=== PATIENT | female | born 1975 | race Caucasian/White ===

== ENCOUNTER 2019-04-04 16:03 | Emergency (ER) | payer MEDICAID, OTHER ==
--- NOTE | 2019-04-04 16:42 | ERPHSYRPT ---
- History of Present Illness Patient Subjective Stated Complaint: Pt states "I have this boil in a very sensitive area. It is on the inside of my upper left butt cheek." Triage Nursing Assessment: Pt presented through the front and placed in room 9. Pt alert and oriented X 3, skin pwd Pt ambulates with a wide gait. Pt in no apparent respiratory distress. Allergies/Adverse Reactions: No Known Drug Allergies Allergy (Unverified 04/04/19 16:17) Home Medications: Insulin Glargine,Hum.rec.anlog [Lantus] 5 units IM HS 04/04/19 [History] Hx Tetanus, Diphtheria Vaccination/Date Given: No Hx Influenza Vaccination/Date Given: No Hx Pneumococcal Vaccination/Date Given: No Immunizations Up to Date: Yes - Past Medical History Pertinent Past Medical History: Yes Neurological History: Peripheral Neuropathy ENT History: No Pertinent History Cardiac History: No Pertinent History Respiratory History: No Pertinent History Endocrine Medical History: Diabetes Type II Musculoskeletal History: Arthritis GI Medical History: No Pertinent History History: No Pertinent History Psycho-Social History: No Pertinent History Female Reproductive Disorders: No Pertinent History - Past Surgical History Past Surgical History: Yes Other Surgical History: appi. left great toe amputated - Social History Smoking Status: Current every day smoker How long have you smoked: 24 years Exposure to second hand smoke: Yes Drug Use: none Patient Lives Alone: No - Female History Hx Now: No - Nursing Vital Signs Nursing Vital Signs: Initial Vital Signs Temperature 98.8 F 04/04/19 16:10 Pulse Rate 104 H 04/04/19 16:10 Respiratory Rate 20 04/04/19 16:10 Blood Pressure 173/89 04/04/19 16:10 O2 Sat by Pulse Oximetry 97 04/04/19 16:10 Pain Scale Pain Intensity 8 - Physical Exam SpO2: 97 - Departure Referrals: DOCTOR,NO FAMILY [Primary Care Provider] -
--- NOTE | 2019-04-04 16:43 | ERPHSYRPT ---
- History of Present Illness Time Seen by Provider: 04/04/19 16:42 Source: patient Exam Limitations: no limitations Patient Subjective Stated Complaint: Pt states "I have this boil in a very sensitive area. It is on the inside of my upper left butt cheek." Triage Nursing Assessment: Pt presented through the front and placed in room 9. Pt alert and oriented X 3, skin pwd Pt ambulates with a wide gait. Pt in no apparent respiratory distress. Timing/Duration: week(s) (one), worse Quality: burning, painful, other (just started to drain last night) Severity: moderate Location: perirectal Possible Causes: no cause identified Associated Symptoms: denies symptoms, No fever Allergies/Adverse Reactions: No Known Drug Allergies Allergy (Unverified 04/04/19 16:17) Home Medications: Insulin Glargine,Hum.rec.anlog [Lantus] 5 units IM HS 04/04/19 [History] Hx Tetanus, Diphtheria Vaccination/Date Given: No Hx Influenza Vaccination/Date Given: No Hx Pneumococcal Vaccination/Date Given: No Immunizations Up to Date: Yes - Review of Systems Constitutional: No Symptoms, No Fever, No Chills Eyes: No Symptoms Ears, Nose, & Throat: No Symptoms Respiratory: No Symptoms, No Cough, No Dyspnea Cardiac: No Symptoms, No Chest Pain, No Edema, No Syncope Abdominal/Gastrointestinal: No Symptoms, No Abdominal Pain, No Nausea, No Vomiting, No Diarrhea Genitourinary Symptoms: No Symptoms, No Dysuria Musculoskeletal: No Symptoms, No Back Pain, No Neck Pain Skin: Other (abscess), No Rash Neurological: No Dizziness, No Focal Weakness, No Sensory Changes Psychological: No Symptoms Endocrine: No Symptoms Hematologic/Lymphatic: No Symptoms Immunological/Allergic: No Symptoms All Other Systems: Reviewed and Negative - Past Medical History Pertinent Past Medical History: Yes Neurological History: Peripheral Neuropathy ENT History: No Pertinent History Cardiac History: No Pertinent History Respiratory History: No Pertinent History Endocrine Medical History: Diabetes Type II Musculoskeletal History: Arthritis GI Medical History: No Pertinent History History: No Pertinent History Psycho-Social History: No Pertinent History Female Reproductive Disorders: No Pertinent History - Past Surgical History Past Surgical History: Yes Other Surgical History: appi. left great toe amputated - Social History Smoking Status: Current every day smoker How long have you smoked: 24 years Exposure to second hand smoke: Yes Drug Use: none Patient Lives Alone: No - Female History Hx Now: No - Nursing Vital Signs Nursing Vital Signs: Initial Vital Signs Temperature 98.8 F 04/04/19 16:10 Pulse Rate 104 H 04/04/19 16:10 Respiratory Rate 20 04/04/19 16:10 Blood Pressure 173/89 04/04/19 16:10 O2 Sat by Pulse Oximetry 97 04/04/19 16:10 Pain Scale Pain Intensity 8 - Physical Exam General Appearance: mild distress Eye Exam: PERRL/EOMI Ears, Nose, Throat Exam: normal ENT inspection Neck Exam: normal inspection Respiratory Exam: normal breath sounds Cardiovascular Exam: regular rate/rhythm, normal heart sounds Gastrointestinal/Abdomen Exam: soft, normal bowel sounds Pelvic Exam: not done Rectal Exam: not done Back Exam: normal inspection Extremity Exam: normal inspection Neurologic Exam: alert, oriented x 3, cooperative Skin Exam: other (6-8 cm draining abscess left perineum area between vulva and rectum. There is an open area in the center of the abscess that has opened and has some early possibly necrotic areas. Culture obtained. ) SpO2 Interpretation: normal SpO2: 97 O2 Delivery: Room Air - Course Nursing assessment & vital signs reviewed: Yes - Progress Progress: unchanged Progress Note: 04/04/19 17:16 She needs admitted for this to receive IV abx and get a surgery consult. She refused to be admitted, refuses labs or IM abx. Stressed the need for a recheck on this area soon. No signs of systemic infection. Rx bactrim, keflex, norco (pain is quite intense). Counseled pt/family regarding: diagnosis, need for follow-up (Important to have a recheck 1-2 days. ) - Departure Departure Disposition: Home Clinical Impression: Abscess Condition: Stable Critical Care Time: No Referrals: DOCTOR,NO FAMILY [Primary Care Provider] - Instructions: Wound Infection Additional Instructions: Bandage area of infection, apply warm compresses, contact your PCP tomorrow because the infection needs rechecked within the next few days. Or, you could see a general surgeon for an evaluation. Prescriptions: Hydrocodone/APAP 10/325 mg [[place] 10/325 MG Tablet] 1 tab PO Q6H PRN PRN # 10 tablet MDD 4 PRN Reason: Pain Cephalexin Mh 500 mg [Keflex 500 mg] 500 mg PO TID #30 capsule Smz/Tmp Ds Tablet [Bactrim Ds Tablet] 1 tab PO Q12H #20 tablet
[2019-04-04 17:11] VITALS: BP 147/94; PULSE 90; O2SAT 97
== END 2019-04-04 17:22 | disposition home or self-care (01) ==
LOC: ED 16:03
DX: L02.31 Cutaneous abscess of buttock (principal)
CPT/HCPCS: 87070; 87077; 87186; 99283

== ENCOUNTER 2021-04-05 16:28 | Observation (INO) | payer OTHER ==
[2021-04-05] MEDS ORDERED: NORCO 5/325 MG PO PRN (17:11)
[2021-04-05] MEDS ORDERED: DAPTOMYCIN IV SCH (18:00)
[2021-04-05] MEDS ORDERED: SODIUM CHLORIDE 0.9% IV SCH (18:00)
[2021-04-05 18:06] VITALS: BP 141/81; PULSE 78; O2SAT 97
[2021-04-05] MEDS ORDERED: Zosyn 3.375 GM Vial 3.375 GM in Sodium Chloride 100ML MINI-BAG PLUS 100 ML IV SCH (22:00)
== END 2021-04-05 17:38 | disposition left against medical advice (07) ==
LOC: UNDOADMOB 16:28 → INTOOBSV 16:28 → ICU 16:28 → UNDODISOB 17:38
PROVIDERS: ADMIT Family Medicine; ATTEND Family Medicine
DX: Z53.21 Procedure and treatment not carried out due to patient leaving prior to being seen by health care provider (principal); M86.171 Other acute osteomyelitis, right ankle and foot

== ENCOUNTER 2021-11-23 07:37 | Day surgery (SDC) | payer OTHER ==
[2021-11-23] MEDS ORDERED: CEFAZOLIN 2 GM-D5W BAG** 2 GM/50 ML ML IV SCH (08:00)
[2021-11-23] MEDS ORDERED: Lactated Ringers 1,000 ML IV SCH (08:00)
[2021-11-23 08:48] LABS: ANION GAP 13.4 MEQ/L (5-15); BLOOD UREA NITROGEN 27 mg/dL (7-17); CHLORIDE 101 mmol/L (98-107); Calcium 9.2 mg/dL (8.4-10.2); Carbon Dioxide 24 mmol/L (22-30); Creatinine 1 0.65 mg/dL (0.52-1.04); EST GLOMERULAR FILTRATION RATE > 60.0 ML/MIN; Glucose 335 mg/dL (74-106); Potassium 4.3 mmol/L (3.5-5.1); SODIUM 134 mmol/L (137-145)
[2021-11-23] MEDS ORDERED: SUBLIMAZE 100 MCG/2 ML ONE (10:47)
[2021-11-23] MEDS ORDERED: DIPRIVAN 200 MG/20 ML IV ONE (10:47)
[2021-11-23] MEDS ORDERED: Zemuron 100 MG/10 ML ONE (10:47)
[2021-11-23] MEDS ORDERED: Versed 2 MG/2 ML Injection ONE (10:48)
[2021-11-23] MEDS ORDERED: Sodium Chloride 0.9% 1000 ML 1,000 ML ONE (11:00)
[2021-11-23] MEDS ORDERED: PHENYLEPHRINE HCL ONE (11:34)
[2021-11-23] MEDS ORDERED: EPINEPHRINE 1MG/ML AMP ONE (11:36)
[2021-11-23] MEDS ORDERED: Naropin 0.5% 30 ML VIAL ONE (12:26)
[2021-11-23] MEDS ORDERED: BRIDION 200MG/2ML IV ONE (12:37)
[2021-11-23] MEDS ORDERED: Zofran 4 MG/2 ML VIAL ONE (12:38)
--- NOTE | 2021-11-23 13:12 | XRAY ---
Indication: Right foot tendon repair. Intraoperative fluoroscopy provided for 1 minute 17 seconds. 7 digital spot images submitted for interpretation ultimately demonstrates orthopedic button overlying the cuboid. Correlate with intraoperative findings/report.
[2021-11-23 14:25] VITALS: O2SAT 98
[2021-11-23 14:56] VITALS: BP 154/84; PULSE 86
--- NOTE | 2021-11-23 16:02 | OP ---
SURGERY DATE: 11/23/2021 SURGERY TIME: 1050 PREOPERATIVE DIAGNOSIS: 1. RIGID CAVOVARUS RIGHT FOOT AND ANKLE. 2. DIABETES MELLITUS. 3. PERIPHERAL NEUROPATHY. 4. GASTROC-SOLEUS EQUINUS. POSTOPERATIVE DIAGNOSIS: 1. RIGID CAVOVARUS RIGHT FOOT AND ANKLE. 2. DIABETES MELLITUS. 3. PERIPHERAL NEUROPATHY. 4. GASTROC-SOLEUS EQUINUS. PROCEDURE: 1. Tendo-Achilles lengthening. 2. Split tibialis anterior tendon transfer. SURGEON: Bob Andrea D.P.M. GAS CUTTING MACHINE OPERATOR: None. ANESTHESIA: General plus a postoperative regional popliteal block with saphenous. HEMOSTASIS: A thigh tourniquet set to 350 mm Hg for 58 total tourniquet time. ESTIMATED BLOOD LOSS: Less than 5 cc. MATERIALS: A Biomet 2.9 toggle lock with broadband for whipstitch, 4-0 Monocryl, and 3-0 Nylon. INJECTABLES: See anesthesia report for details. INDICATIONS FOR PROCEDURE: Luanne is a very pleasant 45 y/o female who presented to my office initially for an ulceration to the plantar lateral aspect of her right forefoot. The patient indicated at that time she was fearful of amputation. Then, after months of wound care, we have gotten very close to healing the wound. 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 The patient has done multiple course of physical therapy and has failed bracing and at this time, would like to proceed with surgical intervention understanding that the goal is to get a plantigrade foot. The patient is in the understanding that at the end of the procedure, the goal will be to get her heel to touch the ground and to have level loading of the forefoot. It is with that we decided to proceed. The patient understands all risks, complications, and benefits of the procedure and plenty of time was allowed for the patient to ask questions which were answered to the patient's apparent satisfaction. No guarantees were provided as to the outcome. It is with that we decided to proceed. DESCRIPTION OF PROCEDURE: The patient was brought in to the OR and placed on the OR table in the supine position. At this time, adequate general anesthesia was administered. A well-padded thigh tourniquet was applied to the patient's right lower extremity. At this time, the tourniquet was set to 350 mm Hg and the right lower extremity was prepped and draped in the typical sterile fashion. At this time, an 11 blade was utilized to make linear incisions at the posterior aspect of the Achilles tendon at the central aspect rotating in a distal to proximal fashion from medial to lateral to medial at 2, 5, and 8 cm until the equinus contracture released. This was checked with the knee extended and the knee flexed and deemed to be in an adequate position. At this time, attention was directed to the dorsal aspect of the medial foot where the tibialis anterior tendon course was appreciated. At this time, a small 2 cm incision was made over the aspect of this tendon, carried down to the tendon sheath which was incised and retracted out of the way. At this time, an additional incision further up proximally on the tibialis anterior tendon was made identifying the tendon proximally. This was performed utilizing a tonsil retractor. At this time, the introduction of a 15 blade was utilized into the medial 1/3 of the tendon and an umbilical tape was introduced in this incision site. The umbilical tape was routed underneath the tendon sheath and used to divide the tendon under tension. At this time, the end of the tendon was cut and a broadband whipstitch was introduced into the resected end of the tendon and routed through the proximal aspect of the incision. At this time, a new incision was made over the dorsal aspect of the cuboid. At this time, fluoroscopy was utilized to deem the adequate position for the anchoring of the tendon. At this time, the tendon was then routed over the extensor retinaculum and over the extensor tendons to the dorsal aspect of the cuboid where a Biomet 2.9 toggle lock was locked into the tendon end and driven through the cuboid locking it within the bone and securing it with the button. At this time, final fluoroscopic images were utilized to assess quality of position. At this time, copious amounts of sterile saline were utilized to flush the surgical sites. The surgical sites were coapted in a subcutaneous fashion with 4-0 Monocryl for the subcutaneous tissue and then coapted utilizing 3-0 Nylon in a horizontal mattress type fashion. The posterior stab incisions were coapted utilizing simple interrupted incisions. At this time, all incisions were cleansed and dried and a dressing consisting of betadine, Adaptic, 4 X 4, and Kerlix was applied to the right lower extremity. The foot was then held in an orthotimal position relative to the longitudinal access of the leg and a well-padded posterior splint was applied to the patient's right lower extremity. The patient was then provided a posterior popliteal and saphenous block. Following this, the patient was returned to the PACU with vital signs stable and vascular status intact. The patient handled the anesthesia as well as the procedure without complication. Postoperative orders as indicated in the patient's discharge chart.
--- NOTE | 2021-11-24 07:20 | XRAY ---
1 minute and 17 seconds fluoroscopy time in surgery for tendon repair of the right foot.
== END 2021-11-23 14:50 | disposition home or self-care (01) ==
LOC: SDC 07:37
PROVIDERS: ATTEND Podiatrist Foot & Ankle Surgery
DX: Q66.11 Congenital talipes calcaneovarus, right foot (principal); E11.42 Type 2 diabetes mellitus with diabetic polyneuropathy; M24.571 Contracture, right ankle
CPT/HCPCS: 27606; 27691; 36415; 73620; 76000; 76937; 80048; 82947; 93005; C1713; 64447; 64450; 76942; J0171; J0690; J2250; J2370; J2405; J2704; J2795; J3010

== ENCOUNTER 2023-06-23 11:38 | Observation (INO) | payer OTHER ==
[2023-06-23] MEDS ORDERED: SUBLIMAZE 100 MCG/2 ML IV ONE ×2 (11:55→13:33)
[2023-06-23] MEDS ORDERED: Zofran 4 MG/2 ML VIAL IV ONE (11:55)
[2023-06-23] MEDS ORDERED: Sodium Chloride 0.9% 1000 ML 1,000 ML IV STA ×2 (11:55→13:17)
--- NOTE | 2023-06-23 12:01 | ERPHSYRPT ---
- History of Present Illness Time Seen by Provider: 06/23/23 11:59 Historian: patient Exam Limitations: no limitations Physician History: Patient is a 47-year-old white female who presents with left flank pain. She has had this pain for 7 or 8 days. She says she has had some fever but no chills or sweats she has had nausea and vomiting but no diarrhea her only previ ous abdominal surgery would be an appendectomy. She has no history of renal stones. Patient is an insulin-dependent diabetic who has been off of medicines for several months she says she occasionally checks her blood sugar and they run higher in the 160 range. She says she stopped taking her insulin and using her insulin because her PCP would no longer see her. Blood sugar was 371 on arrival in the ER. Allergies/Adverse Reactions: No Known Drug Allergies Allergy (Verified 06/23/23 12:03) Home Medications: Gabapentin [Neurontin ] 100 mg PO BID 11/21/21 [History] Rivaroxaban 10 mg Tablet [Xarelto 10 mg Tablet] 10 mg PO DAILY 11/21/21 [History] Cholecalciferol (Vitamin D3) [Vitamin D3] 500 mcg PO DAILY 11/23/21 [History] Cyanocobalamin (Vitamin B-12) [Vitamin B-12] 1,000 mcg PO DAILY 11/23/21 [History] Mv,Calcium,Min/Iron/Folic/Vitk [Multi For Her Tablet] 1 tab PO DAILY 11/23/21 [History] Hx Tetanus, Diphtheria Vaccination/Date Given: No Hx Influenza Vaccination/Date Given: No Hx Pneumococcal Vaccination/Date Given: No - Review of Systems Constitutional: Fever, No Chills Eyes: No Symptoms Ears, Nose, & Throat: No Symptoms Respiratory: No Cough, No Dyspnea Cardiac: No Chest Pain, No Edema, No Syncope Abdominal/Gastrointestinal: Abdominal Pain, Nausea, Vomiting, No Diarrhea Genitourinary Symptoms: No Dysuria Musculoskeletal: No Back Pain, No Neck Pain Skin: No Rash Neurological: No Dizziness, No Focal Weakness, No Sensory Changes Psychological: No Symptoms Endocrine: No Symptoms All Other Systems: Reviewed and Negative - Past Medical History Pertinent Past Medical History: Yes Neurological History: Peripheral Neuropathy, Stroke ENT History: No Pertinent History Cardiac History: No Pertinent History Respiratory History: No Pertinent History Endocrine Medical History: Diabetes Type II Musculoskeletal History: No Pertinent History GI Medical History: No Pertinent History History: No Pertinent History Psycho-Social History: No Pertinent History Female Reproductive Disorders: No Pertinent History Other Medical History: 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 - Past Surgical History Past Surgical History: Yes Neuro Surgical History: No Pertinent History Cardiac: No Pertinent History Respiratory: No Pertinent History Gastrointestinal: Appendectomy Genitourinary: No Pertinent History Musculoskeletal: Amputation Female Surgical History: No Pertinent History Other Surgical History: left great toe amputated - Social History Smoking Status: Former smoker How long have you smoked: 24 years Exposure to second hand smoke: No Drug Use: none Patient Lives Alone: No - Nursing Vital Signs Nursing Vital Signs: Initial Vital Signs Temperature 97.3 F 06/23/23 11:46 Pulse Rate 117 H 06/23/23 11:46 Blood Pressure 136/109 06/23/23 11:46 O2 Sat by Pulse Oximetry 99 06/23/23 11:46 Pain Scale Pain Intensity 7 - Physical Exam General Appearance: mild distress, alert Eye Exam: PERRL/EOMI, eyes nml inspection Ears, Nose, Throat Exam: normal ENT inspection, pharynx normal, moist mucous membranes Neck Exam: normal inspection, non-tender, supple, full range of motion Respiratory Exam: normal breath sounds, lungs clear, No respiratory distress Cardiovascular Exam: regular rate/rhythm, normal heart sounds Gastrointestinal/Abdomen Exam: soft, No tenderness, No mass Back Exam: normal inspection, normal range of motion, CVA tenderness (Left CVA tenderness), No vertebral tenderness Extremity Exam: normal inspection, normal range of motion, pelvis stable Neurologic Exam: alert, oriented x 3, cooperative, normal mood/affect, nml cerebellar function, sensation nml, No motor deficits Skin Exam: normal color, warm, dry - Course Nursing assessment & vital signs reviewed: Yes EKG Interpreted by Me: RATE ([id number]), Sinus Rhythm, NORMAL AXIS, NORMAL INTERVALS, Non-specific ST Changes - CT Exams Abdomen/Pelvis CT Interpretation: Other (Findings were reviewed by me) Ordered Tests: Active Orders 24 hr Category Date Time Status EKG-ER Only STAT Care 06/23/23 11:55 Active IV Insertion STAT Care 06/23/23 11:55 Active POCT Glucose Check STAT Care 06/23/23 12:03 Active ABDOMEN AND PELVIS W/0 CONTRAS [CT] Stat Exams 06/23/23 11:56 Completed ABG [ARTERIAL BLOOD GASES] Stat Lab 06/23/23 13:04 Completed CBC W DIFF Stat Lab 06/23/23 12:00 Completed CMP Stat Lab 06/23/23 12:00 Completed CULTURE,URINE Stat Lab 06/23/23 12:03 Received LIPASE Stat Lab 06/23/23 12:00 Completed Lactic Acid Stat Lab 06/23/23 12:00 Completed POCT GLUCOSE Stat Lab 06/23/23 12:00 Completed PROTIME WITH INR Stat Lab 06/23/23 12:00 Completed TROPONIN Q4H Lab 06/23/23 12:00 Completed TROPONIN Q4H Lab 06/23/23 16:00 Ordered TROPONIN Q4H Lab 06/23/23 20:00 Ordered UA W/RFX UR CULTURE Stat Lab 06/23/23 12:03 Completed Urine Triage Profile Stat Lab 06/23/23 12:03 Completed Medication Summary Generic Name Dose Route Start Last Admin Trade Name Freq PRN Reason Stop Dose Admin Fentanyl Citrate 75 mcg 06/23/23 13:33 Fentanyl Citrate 100 Mcg/2 Ml* Vial IV 06/23/23 13:34 STAT ONE Sodium Chloride 1,000 mls @ 999 mls/hr 06/23/23 13:17 06/23/23 13:24 Sodium Chloride 0.9% 1000 Ml IV 06/23/23 14:17 999 mls/hr .Q1H1M STA Administration Ceftriaxone Sodium/Dextrose 1 g in 50 mls @ 100 mls/hr 06/23/23 13:31 Rocephin 1 Gm-D5w 50 Ml Bag IV 06/23/23 14:00 STAT STA Discontinued Medications Generic Name Dose Route Start Last Admin Trade Name Freq PRN Reason Stop Dose Admin Fentanyl Citrate 50 mcg 06/23/23 11:55 06/23/23 12:08 Fentanyl Citrate 100 Mcg/2 Ml* Vial IV 06/23/23 11:56 50 mcg STAT ONE Administration Fentanyl Citrate Confirm 06/23/23 12:05 Fentanyl Citrate 100 Mcg/2 Ml* Vial Administered 06/23/23 12:06 Dose 100 mcg .ROUTE .STK-MED ONE Sodium Chloride 1,000 mls @ 999 mls/hr 06/23/23 11:55 06/23/23 13:10 Sodium Chloride 0.9% 1000 Ml IV 06/23/23 12:55 Infused .Q1H1M STA Infusion Sodium Chloride Confirm 06/23/23 12:05 Sodium Chloride 0.9% 1000 Ml Administered 06/23/23 12:06 Dose 1,000 mls @ ud .ROUTE .STK-MED ONE Sodium Chloride Confirm 06/23/23 13:20 Sodium Chloride 0.9% 1000 Ml Administered 06/23/23 13:21 Dose 1,000 mls @ ud .ROUTE .STK-MED ONE Insulin Human Regular 10 unit 06/23/23 13:05 06/23/23 13:23 Insulin Regular, Human 1 Unit IV 06/23/23 13:06 10 unit STAT ONE Administration Insulin Human Regular Confirm 06/23/23 13:20 Insulin Regular, Human 1 Unit Administered 06/23/23 13:21 Dose 10 unit .ROUTE .STK-MED ONE Ondansetron HCl 4 mg 06/23/23 11:55 06/23/23 12:08 Ondansetron Hcl 4 Mg/2 Ml Vial IV 06/23/23 11:56 4 mg STAT ONE Administration Ondansetron HCl Confirm 06/23/23 12:04 Ondansetron Hcl 4 Mg/2 Ml Vial Administered 06/23/23 12:05 Dose 4 mg .ROUTE .STK-MED ONE Lab/Rad Data: Laboratory Result Diagrams 06/23/23 12:00 06/23/23 12:00 Laboratory Results 06/23/23 06/23/23 06/23/23 Range/Units 13:04 12:03 12:03 WBC (4.0-10.5) x10^3/uL RBC (4.1-5.4) x10^6/uL Hgb (12.0-16.0) g/dL Hct (35-47) % MCV (78-100) fL MCH (26-32) pg MCHC (32-36) g/dL RDW (11.5-14.0) % Plt Count (150-450) x10^3/uL MPV (7.5-11.0) fL Gran % (36.0-66.0) % Immature Gran % (Auto) (0.00-0.4) % Nucleat RBC Rel Count (0.00-0.1) % Eos # (Auto) (0-0.5) x10^3/uL Immature Gran # (Auto) (0.00-0.03) x10^3u/L Absolute Lymphs (auto) (1.0-4.6) x10^3/uL Absolute Monos (auto) (0.0-1.3) x10^3/uL Absolute Nucleated RBC (0.00-0.01) x10^3u/L Lymphocytes % (24.0-44.0) % Monocytes % (0.0-12.0) % Eosinophils % (0.00-5.0) % Basophils % (0.0-0.4) % Absolute Granulocytes (1.4-6.9) x10^3/uL Basophils # (0-0.4) x10^3/uL PT (9.4-12.5) SECONDS INR (0.8-3.0) Puncture Site LEFT RADIAL pCO2 17 L* (35-45) mmHg pO2 135 H* (75-100) mmHg Base Excess -5.6 L (-2.0-2.0) O2 Saturation 96.7 (94-100) g/dF ABG pH 7.53 H (7.35-7.45) ABG HCO3 14.2 L* (22-28) ABG O2 Sat (Measured) 99.0 (95-100) % Jefferson Test YES A-a Gradient -7 a/A Ratio 1.05 Hemoglobin 14.2 Carboxyhemoglobin 1.3 (0.0-6.9) % THgb Methemoglobin 1.1 L (1.4-1.5) % Temperature 37.0 C POC O2 Flow Rate 21 % Sodium (137-145) mmol/L Potassium 4.7 (3.5-5.1) mmol/L Chloride (98-107) mmol/L Carbon Dioxide (22-30) mmol/L Anion Gap (5-15) MEQ/L BUN (7-17) mg/dL Creatinine (0.52-1.04) mg/dL Estimated GFR ML/MIN Glucose (74-106) mg/dL POC Glucometer (74 to 106) mg/dL Lactic Acid (0.4-2.0) Calcium (8.4-10.2) mg/dL Total Bilirubin (0.2-1.3) mg/dL AST (14-36) U/L ALT (0-35) U/L Alkaline Phosphatase (38-126) U/L Troponin I (0.000-0.034) ng/mL Serum Total Protein (6.3-8.2) g/dL Albumin (3.5-5.0) g/dL Lipase (23-300) U/L Urine Color Yellow (Yellow) Urine Appearance Turbid A (Clear) Urine pH 5.5 (4.6-8.0) Ur Specific [place] >=1.030 A (1.005-1.030) Urine Protein 300 A (Negative) Urine Glucose (UA) >=1000 A (Negative) mg/dL Urine Ketones >=160 A (Negative) Urine Blood Moderate A (Negative) Urine Nitrite Negative (Negative) Urine Bilirubin Negative (Negative) Urine Urobilinogen 0.2 (0.2) mg/dL Ur Leukocyte Esterase Small A (Negative) U Hyaline Cast (Auto) None Seen (0-2) /LPF Urine Microscopic RBC 6-10 A (0-5) /HPF Urine Microscopic WBC 21-50 A (0-5) /HPF Ur Epithelial Cells Rare (None Seen) /HPF Urine Bacteria Moderate A (None Seen) /HPF Urine Culture Reflexed YES (NO) Urine Opiates Level POSITIVE A (NEGATIVE) Ur Methadone NEGATIVE (NEGATIVE) Urine Barbiturates NEGATIVE (NEGATIVE) Ur Phencyclidine (PCP) NEGATIVE (NEGATIVE) Urine Amphetamine NEGATIVE (NEGATIVE) U Benzodiazepine Level NEGATIVE (NEGATIVE) Urine Cocaine NEGATIVE (NEGATIVE) Urine Marijuana (THC) NEGATIVE (NEGATIVE) 06/23/23 06/23/23 06/23/23 Range/Units 12:00 12:00 12:00 WBC (4.0-10.5) x10^3/uL RBC (4.1-5.4) x10^6/uL Hgb (12.0-16.0) g/dL Hct (35-47) % MCV (78-100) fL MCH (26-32) pg MCHC (32-36) g/dL RDW (11.5-14.0) % Plt Count (150-450) x10^3/uL MPV (7.5-11.0) fL Gran % (36.0-66.0) % Immature Gran % (Auto) (0.00-0.4) % Nucleat RBC Rel Count (0.00-0.1) % Eos # (Auto) (0-0.5) x10^3/uL Immature Gran # (Auto) (0.00-0.03) x10^3u/L Absolute Lymphs (auto) (1.0-4.6) x10^3/uL Absolute Monos (auto) (0.0-1.3) x10^3/uL Absolute Nucleated RBC (0.00-0.01) x10^3u/L Lymphocytes % (24.0-44.0) % Monocytes % (0.0-12.0) % Eosinophils % (0.00-5.0) % Basophils % (0.0-0.4) % Absolute Granulocytes (1.4-6.9) x10^3/uL Basophils # (0-0.4) x10^3/uL PT 10.8 (9.4-12.5) SECONDS INR 0.99 (0.8-3.0) Puncture Site pCO2 (35-45) mmHg pO2 (75-100) mmHg Base Excess (-2.0-2.0) O2 Saturation (94-100) g/dF ABG pH (7.35-7.45) ABG HCO3 (22-28) ABG O2 Sat (Measured) (95-100) % Jefferson Test A-a Gradient a/A Ratio Hemoglobin Carboxyhemoglobin (0.0-6.9) % THgb Methemoglobin (1.4-1.5) % Temperature C POC O2 Flow Rate % Sodium (137-145) mmol/L Potassium (3.5-5.1) mmol/L Chloride (98-107) mmol/L Carbon Dioxide (22-30) mmol/L Anion Gap (5-15) MEQ/L BUN (7-17) mg/dL Creatinine (0.52-1.04) mg/dL Estimated GFR ML/MIN Glucose (74-106) mg/dL POC Glucometer 371 H (74 to 106) mg/dL Lactic Acid (0.4-2.0) Calcium (8.4-10.2) mg/dL Total Bilirubin (0.2-1.3) mg/dL AST (14-36) U/L ALT (0-35) U/L Alkaline Phosphatase (38-126) U/L Troponin I < 0.012 (0.000-0.034) ng/mL Serum Total Protein (6.3-8.2) g/dL Albumin (3.5-5.0) g/dL Lipase (23-300) U/L Urine Color (Yellow) Urine Appearance (Clear) Urine pH (4.6-8.0) Ur Specific [place] (1.005-1.030) Urine Protein (Negative) Urine Glucose (UA) (Negative) mg/dL Urine Ketones (Negative) Urine Blood (Negative) Urine Nitrite (Negative) Urine Bilirubin (Negative) Urine Urobilinogen (0.2) mg/dL Ur Leukocyte Esterase (Negative) U Hyaline Cast (Auto) (0-2) /LPF Urine Microscopic RBC (0-5) /HPF Urine Microscopic WBC (0-5) /HPF Ur Epithelial Cells (None Seen) /HPF Urine Bacteria (None Seen) /HPF Urine Culture Reflexed (NO) Urine Opiates Level (NEGATIVE) Ur Methadone (NEGATIVE) Urine Barbiturates (NEGATIVE) Ur Phencyclidine (PCP) (NEGATIVE) Urine Amphetamine (NEGATIVE) U Benzodiazepine Level (NEGATIVE) Urine Cocaine (NEGATIVE) Urine Marijuana (THC) (NEGATIVE) 06/23/23 06/23/23 06/23/23 Range/Units 12:00 12:00 12:00 WBC 12.8 H (4.0-10.5) x10^3/uL RBC 5.22 (4.1-5.4) x10^6/uL Hgb 15.6 (12.0-16.0) g/dL Hct 45.8 (35-47) % MCV 87.7 (78-100) fL MCH 29.9 (26-32) pg MCHC 34.1 (32-36) g/dL RDW 13.7 (11.5-14.0) % Plt Count 286 (150-450) x10^3/uL MPV 10.4 (7.5-11.0) fL Gran % 68.9 H (36.0-66.0) % Immature Gran % (Auto) 0.3 (0.00-0.4) % Nucleat RBC Rel Count 0.0 (0.00-0.1) % Eos # (Auto) 0.08 (0-0.5) x10^3/uL Immature Gran # (Auto) 0.04 H (0.00-0.03) x10^3u/L Absolute Lymphs (auto) 2.95 (1.0-4.6) x10^3/uL Absolute Monos (auto) 0.82 (0.0-1.3) x10^3/uL Absolute Nucleated RBC 0.00 (0.00-0.01) x10^3u/L Lymphocytes % 23.1 L (24.0-44.0) % Monocytes % 6.4 (0.0-12.0) % Eosinophils % 0.6 (0.00-5.0) % Basophils % 0.7 (0.0-0.4) % Absolute Granulocytes 8.79 H (1.4-6.9) x10^3/uL Basophils # 0.09 (0-0.4) x10^3/uL PT (9.4-12.5) SECONDS INR (0.8-3.0) Puncture Site pCO2 (35-45) mmHg pO2 (75-100) mmHg Base Excess (-2.0-2.0) O2 Saturation (94-100) g/dF ABG pH (7.35-7.45) ABG HCO3 (22-28) ABG O2 Sat (Measured) (95-100) % Jefferson Test A-a Gradient a/A Ratio Hemoglobin Carboxyhemoglobin (0.0-6.9) % THgb Methemoglobin (1.4-1.5) % Temperature C POC O2 Flow Rate % Sodium 131 L (137-145) mmol/L Potassium 4.3 (3.5-5.1) mmol/L Chloride 95 L (98-107) mmol/L Carbon Dioxide 19 L (22-30) mmol/L Anion Gap 21.4 H (5-15) MEQ/L BUN 21 H (7-17) mg/dL Creatinine 0.68 (0.52-1.04) mg/dL Estimated GFR 106.7 ML/MIN Glucose 380 H (74-106) mg/dL POC Glucometer (74 to 106) mg/dL Lactic Acid 2.5 H (0.4-2.0) Calcium 9.3 (8.4-10.2) mg/dL Total Bilirubin 1.00 (0.2-1.3) mg/dL AST 39 H (14-36) U/L ALT 40 H (0-35) U/L Alkaline Phosphatase 144 H (38-126) U/L Troponin I (0.000-0.034) ng/mL Serum Total Protein 8.8 H (6.3-8.2) g/dL Albumin 4.6 (3.5-5.0) g/dL Lipase 620 H (23-300) U/L Urine Color (Yellow) Urine Appearance (Clear) Urine pH (4.6-8.0) Ur Specific [place] (1.005-1.030) Urine Protein (Negative) Urine Glucose (UA) (Negative) mg/dL Urine Ketones (Negative) Urine Blood (Negative) Urine Nitrite (Negative) Urine Bilirubin (Negative) Urine Urobilinogen (0.2) mg/dL Ur Leukocyte Esterase (Negative) U Hyaline Cast (Auto) (0-2) /LPF Urine Microscopic RBC (0-5) /HPF Urine Microscopic WBC (0-5) /HPF Ur Epithelial Cells (None Seen) /HPF Urine Bacteria (None Seen) /HPF Urine Culture Reflexed (NO) Urine Opiates Level (NEGATIVE) Ur Methadone (NEGATIVE) Urine Barbiturates (NEGATIVE) Ur Phencyclidine (PCP) (NEGATIVE) Urine Amphetamine (NEGATIVE) U Benzodiazepine Level (NEGATIVE) Urine Cocaine (NEGATIVE) Urine Marijuana (THC) (NEGATIVE) - Progress Progress: improved Discussed with Dr.: Other (Dr Alexander) Medical Desision Making - Independent Historian Additional History obtained from: Relative/friend - Discussion of managment Care discussed with:: hospitalist Reviewed:: Test results, Need for additional workup Agreed on:: Treatment plan, decision to admit Will see patient: in hospital - Diagnostic Testing Diagnostic test were ordered, analyzed, and reviewed by me: Yes Radiological Interpretation: Reviewed by me - Risk of complications The pt has a mod risk of morbidity or mortality based on: Need for prescription drug management - Departure Departure Disposition: Observation Clinical Impression: Hyperglycemia, Urinary tract infection, Pancreatitis, Cholelithiasis Condition: Stable Critical Care Time: No Referrals: ZIGGY RAMIREZ MD [Primary Care Provider] - Follow up/PCP as directed
[2023-06-23] MEDS ORDERED: Zofran 4 MG/2 ML VIAL ONE (12:04)
[2023-06-23] MEDS ORDERED: SUBLIMAZE 100 MCG/2 ML ONE ×2 (12:05→13:35)
[2023-06-23] MEDS ORDERED: Sodium Chloride 0.9% 1000 ML 1,000 ML ONE ×2 (12:05→13:20)
[2023-06-23 12:07] LABS: Absolute Neutrophil Ct (ANC) 8.79 x10^3/uL (1.4-6.9); BASOPHIL % 0.7 % (0.0-0.4); Basophil (Absolute #) 0.09 x10^3/uL (0-0.4); Eosinophil % 0.6 % (0.00-5.0); Eosinophil (Absolute #) 0.08 x10^3/uL (0-0.5); Hematocrit 45.8 % (35-47); Hemoglobin 15.6 g/dL (12.0-16.0); IMMATURE GRAN # 0.04 x10^3u/L (0.00-0.03); IMMATURE GRAN % 0.3 % (0.00-0.4); Lymphocyte (Absolute #) 2.95 x10^3/uL (1.0-4.6); Lymphocytes % 23.1 % (24.0-44.0); Mean Cell Volume 87.7 fL (78-100); Mean Corpuscular Hemoglobin 29.9 pg (26-32); Mean Corpuscular Hgb Concent. 34.1 g/dL (32-36); Mean Platelet Volume 10.4 fL (7.5-11.0); Monocyte (Absolute #) 0.82 x10^3/uL (0.0-1.3); Monocytes % 6.4 % (0.0-12.0); Neutrophil % 68.9 % (36.0-66.0); Platelet Count 286 x10^3/uL (150-450); Red Blood Count 5.22 x10^6/uL (4.1-5.4); Red Cell Distribution Width 13.7 % (11.5-14.0); White Blood Count 12.8 x10^3/uL (4.0-10.5)
[2023-06-23 12:20] LABS: INR 0.99 (0.8-3.0); PROTIME 10.8 SECONDS (9.4-12.5)
[2023-06-23 12:21] LABS: ALBUMIN 4.6 g/dL (3.5-5.0); ANION GAP 21.4 MEQ/L (5-15); Calcium 9.3 mg/dL (8.4-10.2); Creatinine 1 0.68 mg/dL (0.52-1.04); EST GLOMERULAR FILTRATION RATE 106.7 ML/MIN; Potassium 4.3 mmol/L (3.5-5.1); Total Protein 8.8 g/dL (6.3-8.2)
[2023-06-23 12:33] LABS: Appearance Turbid (Clear); Bilirubin Negative (Negative); Blood Moderate (Negative); Epithelial Cells Rare /HPF (None Seen); Glucose, Urine >=1000 mg/dL (Negative); Ketones >=160 (Negative); Leukocyte Esterase Small (Negative); Nitrite Negative (Negative); Ph 5.5 (4.6-8.0); Protein,Urine Dip 300 (Negative); Specific Gravity >=1.030 (1.005-1.030); Urobilinogen 0.2 mg/dL (0.2)
[2023-06-23 12:34] LABS: ADD URINE CULTURE? YES (NO); Bacteria Moderate /HPF (None Seen); Hyaline Casts None Seen /LPF (0-2); WBC 21-50 /HPF (0-5)
--- NOTE | 2023-06-23 12:42 | XRAY ---
Indication: Left flank pain 3 days. History of kidney stones. Multiple contiguous axial images obtained through abdomen and pelvis without contrast. Comparison: None Lung bases clear. Heart not enlarged. Noncontrasted stomach and bowel loops appear nonobstructed. Previous appendectomy. Moderately distended gallbladder with tiny gallstones in the dependent portion. No free fluid/air. Urinary bladder demonstrates small intraluminal air either iatrogenic from recent catheterization versus gas-forming infection. Remaining liver, pancreas, spleen, adrenal glands, kidneys, ureters, and uterus are unremarkable for noncontrast exam. Mild scattered aortoiliac calcifications without AAA. Osseous structures intact with minimal/mild degenerative changes throughout the spine and minimal levoscoliosis centered at L3. Impression: 1. Abnormally distended gallbladder with tiny gallstones. Sonogram may yield further information if clinically warranted. 2. Urinary bladder intraluminal air either iatrogenic versus gas-forming infection. 3. Chronic findings including arteriosclerotic disease and chronic bony findings.
[2023-06-23 12:51] LABS: Amphetamine,Urine NEGATIVE (NEGATIVE); Barbiturate,Urine NEGATIVE (NEGATIVE); Benzodiazepine,Urine NEGATIVE (NEGATIVE); Cocaine,Urine NEGATIVE (NEGATIVE); Methadone,Urine NEGATIVE (NEGATIVE); Opiate,Urine POSITIVE (NEGATIVE); PCP,Urine NEGATIVE (NEGATIVE); THC,Urine NEGATIVE (NEGATIVE)
[2023-06-23] MEDS ORDERED: HUMULIN R IV ONE (13:05)
[2023-06-23 13:19] LABS: A-aADO2 -7; ABG HEMOGLOBIN 14.2; ABG POTASSIUM 4.7 (3.5-5.1); ARTERIAL BLOOD GAS BASE EXCESS -5.6 (-2.0-2.0); ARTERIAL BLOOD GAS FIO2 21 %; ARTERIAL BLOOD GAS PCO2 17 mmHg (35-45); ARTERIAL BLOOD GAS PO2 135 mmHg (75-100); ARTERIAL BLOOD GAS pH 7.53 (7.35-7.45); CARBOXYHEMOGLOBIN 1.3 % THgb (0.0-6.9); HCO3- 14.2 (22-28); HGB O2 SAT 96.7 g/dF (94-100); Methhemoglobin 1.1 % (1.4-1.5); paO2 pAO1 1.05
[2023-06-23 13:20] LABS: ABG SITE LEFT RADIAL; ALLEN TEST OK? YES
[2023-06-23] MEDS ORDERED: HUMULIN R ONE (13:20)
[2023-06-23] MEDS ORDERED: ROCEPHIN 1 Gm-D5w 50 ml Bag** 1 G/50 ML IVPB IV STA (13:31)
[2023-06-23] MEDS ORDERED: ROCEPHIN 1 Gm-D5w 50 ml Bag** 1 G/50 ML IVPB IV ONE (13:32)
--- NOTE | 2023-06-23 15:28 | PCM.HP ---
History of Present Illness - Chief Complaint Chief Complaint: Hyperglycemia/UTI Date: 06/23/23 History of Present Illness: is a 47 year old female with pmhx of DM (was on insulin but has not taken it for a few years), Stroke (2021), HLD, and neuropathy presented to ED 06/23/23 with complaints of nausea (one episode of vomiting this past Friday), abdominal and left flank pain for the past week. She reports that she feels she has been febrile with chills but does not have a thermometer at home. Patient denies hematuria, dysuria, frequency, or burning. Upon presentation patient was afebrile, tachycardic and hypertensive with spo2 @ 99% on RA. CT of the abdomen/pelvis w/o contrast demonstrates an abnormally distended gallbladder with tiny gallstones and urinary bladder intraluminal air either iatrogenic versus gas-forming infection. Lab findings are remarkable for WBC at 12.8, co2 at 19, glucose at 380, AST at 39, ALT at 40, alk phos at 144, and lipase at 620. Urinalysis with ketones, glucose, and many WBC. Lactic acid WNL. Patient was given ceftriaxone, insulin, fentanyl, zofran, and IVF bolus. - Review of Systems Constitutional: Fever, Chills, Fatigue Eyes: No Symptoms Ears, Nose, & Throat: No Symptoms Respiratory: No Symptoms Cardiac: No Symptoms Abdominal/Gastrointestinal: Abdominal Pain, Nausea, Other (Left flank pain CVA tenderness) Genitourinary Symptoms: No Symptoms Musculoskeletal: No Symptoms Skin: No Symptoms Neurological: Other (N/T BLE chronic) Psychological: No Symptoms Endocrine: No Symptoms Hematologic/Lymphatic: No Symptoms Medications & Allergies Home Medications: Home Medication List Gabapentin [Neurontin ] 100 mg PO BID 11/21/21 [History Confirmed 06/23/23] Rivaroxaban 10 mg Tablet [Xarelto 10 mg Tablet] 10 mg PO DAILY 11/21/21 [History Confirmed 06/23/23] Cholecalciferol (Vitamin D3) [Vitamin D3] 500 mcg PO DAILY 11/23/21 [History Confirmed 06/23/23] Cyanocobalamin (Vitamin B-12) [Vitamin B-12] 1,000 mcg PO DAILY 11/23/21 [History Confirmed 06/23/23] Mv,Calcium,Min/Iron/Folic/Vitk [Multi For Her Tablet] 1 tab PO DAILY 11/23/21 [History Confirmed 06/23/23] Allergies/Adverse Reactions: Allergies Allergy/AdvReac Type Severity Reaction Status Date / Time No Known Drug Allergies Allergy Verified 06/23/23 12:03 - Past Medical History Past Medical History: Yes Neurological History: Peripheral Neuropathy, Stroke ENT History: No Pertinent History Cardiac History: No Pertinent History Respiratory History: No Pertinent History Endocrine Medical History: Diabetes Type II Musculoskelatal History: No Pertinent History GI Medical History: No Pertinent History History: No Pertinent History Pyscho-Social History: No Pertinent History Reproductive Disorders: No Pertinent History Comment: HX OF AMPUTATION LEFT GREAT TOE AFTER SUFFERING CRUSH INJURY AND NON- HEALING WOUND 05/2018. - Female History Are you now?: No - Past Surgical History Past Surgical History: Yes Neuro Surgical History: No Pertinent History Cardiac History: No Pertinent History Respiratory Surgery: No Pertinent History GI Surgical History: Appendectomy Genitourinary Surgical Hx: No Pertinent History Musculskeletal Surgical Hx: Amputation Female Surgical History: No Pertinent History Other Surgical History: left great toe amputated - Social History Smoking Status: Former smoker How long have you smoked: 24 years Exposure to second hand smoke: No Alcohol: None Drug Use: none - Physical Exam Vital Signs: Vital Signs - 24 hr Temp Pulse Resp BP BP Pulse Ox 06/23/23 13:30 139/90 06/23/23 13:00 92 H 16 136/87 98 06/23/23 12:30 91 H 4 L 124/82 98 06/23/23 12:29 96 H 21 97 06/23/23 12:27 98 H 13 97 06/23/23 12:00 122/90 98 06/23/23 11:46 97.3 F 117 H 136/109 99 General Appearance: no apparent distress Neurologic Exam: alert, oriented x 3, cooperative Eye Exam: PERRL/EOMI Ears, Nose, Throat Exam: normal ENT inspection Neck Exam: normal inspection Respiratory Exam: normal breath sounds, lungs clear Cardiovascular Exam: regular rate/rhythm, normal heart sounds Gastrointestinal/Abdomen Exam: soft, normal bowel sounds, tenderness (LLQ) Pelvic Exam: not done Rectal Exam: deferred Back Exam: normal inspection Results - Labs Lab/Micro Results: Lab Results-Last 24 Hours 1206/23/23 06/23/23 Range/Units 12:00 12:00 12:00 WBC 12.8 H (4.0-10.5) x10^3/uL RBC 5.22 (4.1-5.4) x10^6/uL Hgb 15.6 (12.0-16.0) g/dL Hct 45.8 (35-47) % MCV 87.7 (78-100) fL MCH 29.9 (26-32) pg MCHC 34.1 (32-36) g/dL RDW 13.7 (11.5-14.0) % Plt Count 286 (150-450) x10^3/uL MPV 10.4 (7.5-11.0) fL Gran % 68.9 H (36.0-66.0) % Immature Gran % (Auto) 0.3 (0.00-0.4) % Nucleat RBC Rel Count 0.0 (0.00-0.1) % Eos # (Auto) 0.08 (0-0.5) x10^3/uL Immature Gran # (Auto) 0.04 H (0.00-0.03) x10^3u/L Absolute Lymphs (auto) 2.95 (1.0-4.6) x10^3/uL Absolute Monos (auto) 0.82 (0.0-1.3) x10^3/uL Absolute Nucleated RBC 0.00 (0.00-0.01) x10^3u/L Lymphocytes % 23.1 L (24.0-44.0) % Monocytes % 6.4 (0.0-12.0) % Eosinophils % 0.6 (0.00-5.0) % Basophils % 0.7 (0.0-0.4) % Absolute Granulocytes 8.79 H (1.4-6.9) x10^3/uL Basophils # 0.09 (0-0.4) x10^3/uL PT (9.4-12.5) SECONDS INR (0.8-3.0) Puncture Site pCO2 (35-45) mmHg pO2 (75-100) mmHg Base Excess (-2.0-2.0) O2 Saturation (94-100) g/dF ABG pH (7.35-7.45) ABG HCO3 (22-28) ABG O2 Sat (Measured) (95-100) % Jefferson Test A-a Gradient a/A Ratio Hemoglobin Carboxyhemoglobin (0.0-6.9) % THgb Methemoglobin (1.4-1.5) % Temperature C POC O2 Flow Rate % Sodium 131 L (137-145) mmol/L Potassium 4.3 (3.5-5.1) mmol/L Chloride 95 L (98-107) mmol/L Carbon Dioxide 19 L (22-30) mmol/L Anion Gap 21.4 H (5-15) MEQ/L BUN 21 H (7-17) mg/dL Creatinine 0.68 (0.52-1.04) mg/dL Estimated GFR 106.7 ML/MIN Glucose 380 H (74-106) mg/dL POC Glucometer (74 to 106) mg/dL Lactic Acid 2.5 H (0.4-2.0) Calcium 9.3 (8.4-10.2) mg/dL Total Bilirubin 1.00 (0.2-1.3) mg/dL AST 39 H (14-36) U/L ALT 40 H (0-35) U/L Alkaline Phosphatase 144 H (38-126) U/L Troponin I (0.000-0.034) ng/mL Serum Total Protein 8.8 H (6.3-8.2) g/dL Albumin 4.6 (3.5-5.0) g/dL Lipase 620 H (23-300) U/L Urine Color (Yellow) Urine Appearance (Clear) Urine pH (4.6-8.0) Ur Specific [place] (1.005-1.030) Urine Protein (Negative) Urine Glucose (UA) (Negative) mg/dL Urine Ketones (Negative) Urine Blood (Negative) Urine Nitrite (Negative) Urine Bilirubin (Negative) Urine Urobilinogen (0.2) mg/dL Ur Leukocyte Esterase (Negative) U Hyaline Cast (Auto) (0-2) /LPF Urine Microscopic RBC (0-5) /HPF Urine Microscopic WBC (0-5) /HPF Ur Epithelial Cells (None Seen) /HPF Urine Bacteria (None Seen) /HPF Urine Culture Reflexed (NO) Urine Opiates Level (NEGATIVE) Ur Methadone (NEGATIVE) Urine Barbiturates (NEGATIVE) Ur Phencyclidine (PCP) (NEGATIVE) Urine Amphetamine (NEGATIVE) U Benzodiazepine Level (NEGATIVE) Urine Cocaine (NEGATIVE) Urine Marijuana (THC) (NEGATIVE) 06/23/23 06/23/23 06/23/23 Range/Units 12:00 12:00 12:00 WBC (4.0-10.5) x10^3/uL RBC (4.1-5.4) x10^6/uL Hgb (12.0-16.0) g/dL Hct (35-47) % MCV (78-100) fL MCH (26-32) pg MCHC (32-36) g/dL RDW (11.5-14.0) % Plt Count (150-450) x10^3/uL MPV (7.5-11.0) fL Gran % (36.0-66.0) % Immature Gran % (Auto) (0.00-0.4) % Nucleat RBC Rel Count (0.00-0.1) % Eos # (Auto) (0-0.5) x10^3/uL Immature Gran # (Auto) (0.00-0.03) x10^3u/L Absolute Lymphs (auto) (1.0-4.6) x10^3/uL Absolute Monos (auto) (0.0-1.3) x10^3/uL Absolute Nucleated RBC (0.00-0.01) x10^3u/L Lymphocytes % (24.0-44.0) % Monocytes % (0.0-12.0) % Eosinophils % (0.00-5.0) % Basophils % (0.0-0.4) % Absolute Granulocytes (1.4-6.9) x10^3/uL Basophils # (0-0.4) x10^3/uL PT 10.8 (9.4-12.5) SECONDS INR 0.99 (0.8-3.0) Puncture Site pCO2 (35-45) mmHg pO2 (75-100) mmHg Base Excess (-2.0-2.0) O2 Saturation (94-100) g/dF ABG pH (7.35-7.45) ABG HCO3 (22-28) ABG O2 Sat (Measured) (95-100) % Jefferson Test A-a Gradient a/A Ratio Hemoglobin Carboxyhemoglobin (0.0-6.9) % THgb Methemoglobin (1.4-1.5) % Temperature C POC O2 Flow Rate % Sodium (137-145) mmol/L Potassium (3.5-5.1) mmol/L Chloride (98-107) mmol/L Carbon Dioxide (22-30) mmol/L Anion Gap (5-15) MEQ/L BUN (7-17) mg/dL Creatinine (0.52-1.04) mg/dL Estimated GFR ML/MIN Glucose (74-106) mg/dL POC Glucometer 371 H (74 to 106) mg/dL Lactic Acid (0.4-2.0) Calcium (8.4-10.2) mg/dL Total Bilirubin (0.2-1.3) mg/dL AST (14-36) U/L ALT (0-35) U/L Alkaline Phosphatase (38-126) U/L Troponin I < 0.012 (0.000-0.034) ng/mL Serum Total Protein (6.3-8.2) g/dL Albumin (3.5-5.0) g/dL Lipase (23-300) U/L Urine Color (Yellow) Urine Appearance (Clear) Urine pH (4.6-8.0) Ur Specific [place] (1.005-1.030) Urine Protein (Negative) Urine Glucose (UA) (Negative) mg/dL Urine Ketones (Negative) Urine Blood (Negative) Urine Nitrite (Negative) Urine Bilirubin (Negative) Urine Urobilinogen (0.2) mg/dL Ur Leukocyte Esterase (Negative) U Hyaline Cast (Auto) (0-2) /LPF Urine Microscopic RBC (0-5) /HPF Urine Microscopic WBC (0-5) /HPF Ur Epithelial Cells (None Seen) /HPF Urine Bacteria (None Seen) /HPF Urine Culture Reflexed (NO) Urine Opiates Level (NEGATIVE) Ur Methadone (NEGATIVE) Urine Barbiturates (NEGATIVE) Ur Phencyclidine (PCP) (NEGATIVE) Urine Amphetamine (NEGATIVE) U Benzodiazepine Level (NEGATIVE) Urine Cocaine (NEGATIVE) Urine Marijuana (THC) (NEGATIVE) 06/23/23 06/23/23 06/23/23 Range/Units 12:03 12:03 13:04 WBC (4.0-10.5) x10^3/uL RBC (4.1-5.4) x10^6/uL Hgb (12.0-16.0) g/dL Hct (35-47) % MCV (78-100) fL MCH (26-32) pg MCHC (32-36) g/dL RDW (11.5-14.0) % Plt Count (150-450) x10^3/uL MPV (7.5-11.0) fL Gran % (36.0-66.0) % Immature Gran % (Auto) (0.00-0.4) % Nucleat RBC Rel Count (0.00-0.1) % Eos # (Auto) (0-0.5) x10^3/uL Immature Gran # (Auto) (0.00-0.03) x10^3u/L Absolute Lymphs (auto) (1.0-4.6) x10^3/uL Absolute Monos (auto) (0.0-1.3) x10^3/uL Absolute Nucleated RBC (0.00-0.01) x10^3u/L Lymphocytes % (24.0-44.0) % Monocytes % (0.0-12.0) % Eosinophils % (0.00-5.0) % Basophils % (0.0-0.4) % Absolute Granulocytes (1.4-6.9) x10^3/uL Basophils # (0-0.4) x10^3/uL PT (9.4-12.5) SECONDS INR (0.8-3.0) Puncture Site LEFT RADIAL pCO2 17 L* (35-45) mmHg pO2 135 H* (75-100) mmHg Base Excess -5.6 L (-2.0-2.0) O2 Saturation 96.7 (94-100) g/dF ABG pH 7.53 H (7.35-7.45) ABG HCO3 14.2 L* (22-28) ABG O2 Sat (Measured) 99.0 (95-100) % Jefferson Test YES A-a Gradient -7 a/A Ratio 1.05 Hemoglobin 14.2 Carboxyhemoglobin 1.3 (0.0-6.9) % THgb Methemoglobin 1.1 L (1.4-1.5) % Temperature 37.0 C POC O2 Flow Rate 21 % Sodium (137-145) mmol/L Potassium 4.7 (3.5-5.1) mmol/L Chloride (98-107) mmol/L Carbon Dioxide (22-30) mmol/L Anion Gap (5-15) MEQ/L BUN (7-17) mg/dL Creatinine (0.52-1.04) mg/dL Estimated GFR ML/MIN Glucose (74-106) mg/dL POC Glucometer (74 to 106) mg/dL Lactic Acid (0.4-2.0) Calcium (8.4-10.2) mg/dL Total Bilirubin (0.2-1.3) mg/dL AST (14-36) U/L ALT (0-35) U/L Alkaline Phosphatase (38-126) U/L Troponin I (0.000-0.034) ng/mL Serum Total Protein (6.3-8.2) g/dL Albumin (3.5-5.0) g/dL Lipase (23-300) U/L Urine Color Yellow (Yellow) Urine Appearance Turbid A (Clear) Urine pH 5.5 (4.6-8.0) Ur Specific [place] >=1.030 A (1.005-1.030) Urine Protein 300 A (Negative) Urine Glucose (UA) >=1000 A (Negative) mg/dL Urine Ketones >=160 A (Negative) Urine Blood Moderate A (Negative) Urine Nitrite Negative (Negative) Urine Bilirubin Negative (Negative) Urine Urobilinogen 0.2 (0.2) mg/dL Ur Leukocyte Esterase Small A (Negative) U Hyaline Cast (Auto) None Seen (0-2) /LPF Urine Microscopic RBC 6-10 A (0-5) /HPF Urine Microscopic WBC 21-50 A (0-5) /HPF Ur Epithelial Cells Rare (None Seen) /HPF Urine Bacteria Moderate A (None Seen) /HPF Urine Culture Reflexed YES (NO) Urine Opiates Level POSITIVE A (NEGATIVE) Ur Methadone NEGATIVE (NEGATIVE) Urine Barbiturates NEGATIVE (NEGATIVE) Ur Phencyclidine (PCP) NEGATIVE (NEGATIVE) Urine Amphetamine NEGATIVE (NEGATIVE) U Benzodiazepine Level NEGATIVE (NEGATIVE) Urine Cocaine NEGATIVE (NEGATIVE) Urine Marijuana (THC) NEGATIVE (NEGATIVE) 06/23/23 06/23/23 06/23/23 Range/Units 13:45 13:45 14:55 WBC (4.0-10.5) x10^3/uL RBC (4.1-5.4) x10^6/uL Hgb (12.0-16.0) g/dL Hct (35-47) % MCV (78-100) fL MCH (26-32) pg MCHC (32-36) g/dL RDW (11.5-14.0) % Plt Count (150-450) x10^3/uL MPV (7.5-11.0) fL Gran % (36.0-66.0) % Immature Gran % (Auto) (0.00-0.4) % Nucleat RBC Rel Count (0.00-0.1) % Eos # (Auto) (0-0.5) x10^3/uL Immature Gran # (Auto) (0.00-0.03) x10^3u/L Absolute Lymphs (auto) (1.0-4.6) x10^3/uL Absolute Monos (auto) (0.0-1.3) x10^3/uL Absolute Nucleated RBC (0.00-0.01) x10^3u/L Lymphocytes % (24.0-44.0) % Monocytes % (0.0-12.0) % Eosinophils % (0.00-5.0) % Basophils % (0.0-0.4) % Absolute Granulocytes (1.4-6.9) x10^3/uL Basophils # (0-0.4) x10^3/uL PT (9.4-12.5) SECONDS INR (0.8-3.0) Puncture Site pCO2 (35-45) mmHg pO2 (75-100) mmHg Base Excess (-2.0-2.0) O2 Saturation (94-100) g/dF ABG pH (7.35-7.45) ABG HCO3 (22-28) ABG O2 Sat (Measured) (95-100) % Jefferson Test A-a Gradient a/A Ratio Hemoglobin Carboxyhemoglobin (0.0-6.9) % THgb Methemoglobin (1.4-1.5) % Temperature C POC O2 Flow Rate % Sodium (137-145) mmol/L Potassium (3.5-5.1) mmol/L Chloride (98-107) mmol/L Carbon Dioxide (22-30) mmol/L Anion Gap (5-15) MEQ/L BUN (7-17) mg/dL Creatinine (0.52-1.04) mg/dL Estimated GFR ML/MIN Glucose (74-106) mg/dL POC Glucometer 259 H 213 H (74 to 106) mg/dL Lactic Acid 1.3 (0.4-2.0) Calcium (8.4-10.2) mg/dL Total Bilirubin (0.2-1.3) mg/dL AST (14-36) U/L ALT (0-35) U/L Alkaline Phosphatase (38-126) U/L Troponin I (0.000-0.034) ng/mL Serum Total Protein (6.3-8.2) g/dL Albumin (3.5-5.0) g/dL Lipase (23-300) U/L Urine Color (Yellow) Urine Appearance (Clear) Urine pH (4.6-8.0) Ur Specific [place] (1.005-1.030) Urine Protein (Negative) Urine Glucose (UA) (Negative) mg/dL Urine Ketones (Negative) Urine Blood (Negative) Urine Nitrite (Negative) Urine Bilirubin (Negative) Urine Urobilinogen (0.2) mg/dL Ur Leukocyte Esterase (Negative) U Hyaline Cast (Auto) (0-2) /LPF Urine Microscopic RBC (0-5) /HPF Urine Microscopic WBC (0-5) /HPF Ur Epithelial Cells (None Seen) /HPF Urine Bacteria (None Seen) /HPF Urine Culture Reflexed (NO) Urine Opiates Level (NEGATIVE) Ur Methadone (NEGATIVE) Urine Barbiturates (NEGATIVE) Ur Phencyclidine (PCP) (NEGATIVE) Urine Amphetamine (NEGATIVE) U Benzodiazepine Level (NEGATIVE) Urine Cocaine (NEGATIVE) Urine Marijuana (THC) (NEGATIVE) Accuchecks Date 06/23/23 Date 06/23/23 Time 13:45 Time 12:00 - Radiology Impressions Radiology Exams & Impressions: Radiology Procedures Category Date Time Status ABDOMEN AND PELVIS W/0 CONTRAS [CT] Stat Exams 06/23/23 11:56 Completed Assessment/Plan (1) Cholelithiasis Current Visit: Yes Status: Acute Assessment & Plan: -CT showing abnormally distended gallbladder with tiny gallstones -abdominal US ordered -Surgery consult -NPO -Supportive care -Consider HIDA pending US results -Zosyn -Hold anticoagulation for now -Bcult pending (2) Elevated lipase Current Visit: Yes Status: Acute Assessment & Plan: -Abnormally distended gallbladder with tiny gallstones. Pancreas unremarkable -US abdomen pending -May be secondary to GB disease, will continue to trend Code(s): R74.8 - ABNORMAL LEVELS OF OTHER SERUM ENZYMES (3) Hypertension Current Visit: Yes Status: Acute Assessment & Plan: -Hydralazine prn Code(s): I10 - ESSENTIAL (PRIMARY) HYPERTENSION (4) Hyperglycemia Current Visit: Yes Status: Acute Assessment & Plan: -ADA diet when able to resume -A1c -Accuchecks -Patient non-compliant with home meds, referral to endo on discharge, will make sure she has supplies etc.. Code(s): R73.9 - HYPERGLYCEMIA, UNSPECIFIED (5) Urinary tract infection Current Visit: Yes Status: Acute Assessment & Plan: -UA mildly suspicious for UTI, will start zosyn, follow culture Code(s): N39.0 - URINARY TRACT INFECTION, SITE NOT SPECIFIED (6) Hyponatremia Current Visit: Yes Status: Acute Assessment & Plan: -Most likely secondary to hyperglycemia, will treat underlying cause and continue to monitor -IVF Code(s): E87.1 - HYPO-OSMOLALITY AND HYPONATREMIA (7) Transaminitis Current Visit: Yes Status: Acute Assessment & Plan: -Mildly elevated, will continue to trend Code(s): R74.01 - ELEVATION OF LEVELS OF LIVER TRANSAMINASE LEVELS
[2023-06-23] MEDS ORDERED: TYLENOL 325 MG PO PRN (15:45)
[2023-06-23] MEDS ORDERED: APRESOLINE 20 MG/ML INJ IV PRN (15:48)
[2023-06-23] MEDS: Sodium Chloride 0.9% 1000 ML 1,000 ML IV SCH (16:24)
--- NOTE | 2023-06-23 17:08 | XRAY ---
Indication: Distended gallbladder on CT. Two-dimensional right upper quadrant sonogram performed. Impression: None Gallbladder demonstrates tiny gravel/sludge in the dependent portion. No abnormal gallbladder wall thickening or pericholecystic fluid. Common bile duct measures 4.7 mm. No intrahepatic biliary distention. Remaining visualized pancreas and right kidney are sonographically unremarkable. Right kidney measures 11.0 x 4.9 x 5.2 cm. Impression: Gallbladder gravel/sludge. Negative for acute cholecystitis or biliary distention.
[2023-06-23 17:28] LABS: ANION GAP 16.8 MEQ/L (5-15); Calcium 8.1 mg/dL (8.4-10.2); Creatinine 1 0.49 mg/dL (0.52-1.04); EST GLOMERULAR FILTRATION RATE 115.5 ML/MIN; Potassium 3.8 mmol/L (3.5-5.1)
[2023-06-23] MEDS: PIPERACILLIN/TAZOBACTAM 3.375 GM in Sodium Chloride 100ML MINI-BAG PLUS 100 ML IV SCH (17:36)
[2023-06-23] MEDS ORDERED: MORPHINE SULFATE 4 MG INJ IV PRN (20:54)
[2023-06-23] MEDS: MORPHINE SULFATE 2 MG INJ IV PRN (20:58)
[2023-06-23] MEDS: Zofran 4 MG/2 ML VIAL IV PRN (21:03)
[2023-06-23] MEDS: Lantus Insulin SQ SCH (22:11)
[2023-06-23] MEDS: HUMALOG SQ PRN (22:12)
[2023-06-24] MEDS: PIPERACILLIN/TAZOBACTAM 3.375 GM in Sodium Chloride 100ML MINI-BAG PLUS 100 ML IV SCH ×5 (00:23→23:47)
[2023-06-24] MEDS: Sodium Chloride 0.9% 1000 ML 1,000 ML IV SCH ×4 (02:58→20:54)
--- NOTE | 2023-06-24 05:03 | PCM.NOTE ---
Date and Time: 06/24/23 0500 Subjective Assessment: HPI: Patient admitted with left abdominal pain and left CVA pain. She has sharp aching pain that radiates to back. Pain is worse sitting and laying on right side. Relieved when laying on right side. She has had nausea and vomiting and some fever at home. No urinary complaints. She has insulin dependent diabetes and has been noncomplaint with her insulin. BS is quite high on admission. Restart insulin therapy. She has abnormal UA suggesting infection. She also has stones in gallbladder. Lipase is elevated suggesting pancreatitis but pancreatitis not seen on CT scan. GB US showing sludge/gravel. Surgery consulted, GB will need out at some point, most likely as OP. 06/24: Met with patient bedside. Endorses improvement of abdominal pain, still with some nausea. Diet advanced to FLD. Long discussion had regarding glycemic control. A1c > 14. Will need to send home with diabetic supplies (glucometer, lancets, strips, syringes, etc). Patient responding well to current insulin regimen of 8 units with meals, and long acting 20 units. Denies fever,cough, sob, cp, CRUMP, dizziness, V/D. - Review of Systems Constitutional: No Symptoms Eyes: No Symptoms Ears, Nose, & Throat: No Symptoms Respiratory: No Symptoms Cardiac: No Symptoms Abdominal/Gastrointestinal: Abdominal Pain, Nausea Genitourinary Symptoms: No Symptoms Musculoskeletal: No Symptoms Skin: No Symptoms Neurological: No Symptoms Psychological: No Symptoms Endocrine: No Symptoms Hematologic/Lymphatic: No Symptoms Immunological/Allergic: No Symptoms Objective Exam General Appearance: no apparent distress Neurologic Exam: alert, oriented x 3, cooperative Skin Exam: normal color Eye Exam: PERRL Ears, Nose, Throat Exam: normal ENT inspection Neck Exam: normal inspection Respiratory Exam: normal breath sounds, lungs clear Cardiovascular Exam: regular rate/rhythm, normal heart sounds Gastrointestinal/Abdomen Exam: soft, normal bowel sounds, tenderness Extremity Exam: normal inspection Back Exam: normal inspection OBJECTIVE DATA Vital Signs: Vital Signs - 24 hr Temp Pulse Resp BP BP Pulse Ox 06/24/23 03:59 96.9 F 80 16 137/73 95 06/23/23 23:40 97.1 F 85 16 115/62 97 06/23/23 19:44 97.1 F 84 16 139/67 98 06/23/23 16:00 98.1 F 93 H 18 152/72 99 06/23/23 14:13 98.1 F 93 H 18 152/72 99 06/23/23 13:30 139/90 06/23/23 13:00 92 H 16 136/87 98 06/23/23 12:30 91 H 4 L 124/82 98 06/23/23 12:29 96 H 21 97 06/23/23 12:27 98 H 13 97 06/23/23 12:00 122/90 98 06/23/23 11:46 97.3 F 117 H 136/109 99 Pain Assessment - Last Documented Pain Intensity 0 Pain Scale Used 0-10 Pain Scale Intake and Output: Intake & Output 06/21/23 06/22/23 06/23/23 06/24/23 11:59 11:59 11:59 11:59 Intake Total 1219 Output Total 400 Balance 819 Weight 78.018 kg 80.6 kg Lab Results: Lab Results-Last 24 Hours 06/23/23 06/23/23 06/23/23 Range/Units 12:00 12:00 12:00 WBC 12.8 H (4.0-10.5) x10^3/uL RBC 5.22 (4.1-5.4) x10^6/uL Hgb 15.6 (12.0-16.0) g/dL Hct 45.8 (35-47) % MCV 87.7 (78-100) fL MCH 29.9 (26-32) pg MCHC 34.1 (32-36) g/dL RDW 13.7 (11.5-14.0) % Plt Count 286 (150-450) x10^3/uL MPV 10.4 (7.5-11.0) fL Gran % 68.9 H (36.0-66.0) % Immature Gran % (Auto) 0.3 (0.00-0.4) % Nucleat RBC Rel Count 0.0 (0.00-0.1) % Eos # (Auto) 0.08 (0-0.5) x10^3/uL Immature Gran # (Auto) 0.04 H (0.00-0.03) x10^3u/L Absolute Lymphs (auto) 2.95 (1.0-4.6) x10^3/uL Absolute Monos (auto) 0.82 (0.0-1.3) x10^3/uL Absolute Nucleated RBC 0.00 (0.00-0.01) x10^3u/L Lymphocytes % 23.1 L (24.0-44.0) % Monocytes % 6.4 (0.0-12.0) % Eosinophils % 0.6 (0.00-5.0) % Basophils % 0.7 (0.0-0.4) % Absolute Granulocytes 8.79 H (1.4-6.9) x10^3/uL Basophils # 0.09 (0-0.4) x10^3/uL PT (9.4-12.5) SECONDS INR (0.8-3.0) Puncture Site pCO2 (35-45) mmHg pO2 (75-100) mmHg Base Excess (-2.0-2.0) O2 Saturation (94-100) g/dF ABG pH (7.35-7.45) ABG HCO3 (22-28) ABG O2 Sat (Measured) (95-100) % Jefferson Test A-a Gradient a/A Ratio Hemoglobin Carboxyhemoglobin (0.0-6.9) % THgb Methemoglobin (1.4-1.5) % Temperature C POC O2 Flow Rate % Sodium 131 L (137-145) mmol/L Potassium 4.3 (3.5-5.1) mmol/L Chloride 95 L (98-107) mmol/L Carbon Dioxide 19 L (22-30) mmol/L Anion Gap 21.4 H (5-15) MEQ/L BUN 21 H (7-17) mg/dL Creatinine 0.68 (0.52-1.04) mg/dL Estimated GFR 106.7 ML/MIN Glucose 380 H (74-106) mg/dL POC Glucometer (74 to 106) mg/dL Hemoglobin A1c (4.5-6.0) % Lactic Acid 2.5 H (0.4-2.0) Calcium 9.3 (8.4-10.2) mg/dL Total Bilirubin 1.00 (0.2-1.3) mg/dL AST 39 H (14-36) U/L ALT 40 H (0-35) U/L Alkaline Phosphatase 144 H (38-126) U/L Troponin I (0.000-0.034) ng/mL Serum Total Protein 8.8 H (6.3-8.2) g/dL Albumin 4.6 (3.5-5.0) g/dL Lipase 620 H (23-300) U/L Urine Color (Yellow) Urine Appearance (Clear) Urine pH (4.6-8.0) Ur Specific [place] (1.005-1.030) Urine Protein (Negative) Urine Glucose (UA) (Negative) mg/dL Urine Ketones (Negative) Urine Blood (Negative) Urine Nitrite (Negative) Urine Bilirubin (Negative) Urine Urobilinogen (0.2) mg/dL Ur Leukocyte Esterase (Negative) U Hyaline Cast (Auto) (0-2) /LPF Urine Microscopic RBC (0-5) /HPF Urine Microscopic WBC (0-5) /HPF Ur Epithelial Cells (None Seen) /HPF Urine Bacteria (None Seen) /HPF Urine Culture Reflexed (NO) Urine Opiates Level (NEGATIVE) Ur Methadone (NEGATIVE) Urine Barbiturates (NEGATIVE) Ur Phencyclidine (PCP) (NEGATIVE) Urine Amphetamine (NEGATIVE) U Benzodiazepine Level (NEGATIVE) Urine Cocaine (NEGATIVE) Urine Marijuana (THC) (NEGATIVE) 06/23/23 06/23/23 06/23/23 Range/Units 12:00 12:00 12:00 WBC (4.0-10.5) x10^3/uL RBC (4.1-5.4) x10^6/uL Hgb (12.0-16.0) g/dL Hct (35-47) % MCV (78-100) fL MCH (26-32) pg MCHC (32-36) g/dL RDW (11.5-14.0) % Plt Count (150-450) x10^3/uL MPV (7.5-11.0) fL Gran % (36.0-66.0) % Immature Gran % (Auto) (0.00-0.4) % Nucleat RBC Rel Count (0.00-0.1) % Eos # (Auto) (0-0.5) x10^3/uL Immature Gran # (Auto) (0.00-0.03) x10^3u/L Absolute Lymphs (auto) (1.0-4.6) x10^3/uL Absolute Monos (auto) (0.0-1.3) x10^3/uL Absolute Nucleated RBC (0.00-0.01) x10^3u/L Lymphocytes % (24.0-44.0) % Monocytes % (0.0-12.0) % Eosinophils % (0.00-5.0) % Basophils % (0.0-0.4) % Absolute Granulocytes (1.4-6.9) x10^3/uL Basophils # (0-0.4) x10^3/uL PT 10.8 (9.4-12.5) SECONDS INR 0.99 (0.8-3.0) Puncture Site pCO2 (35-45) mmHg pO2 (75-100) mmHg Base Excess (-2.0-2.0) O2 Saturation (94-100) g/dF ABG pH (7.35-7.45) ABG HCO3 (22-28) ABG O2 Sat (Measured) (95-100) % Jefferson Test A-a Gradient a/A Ratio Hemoglobin Carboxyhemoglobin (0.0-6.9) % THgb Methemoglobin (1.4-1.5) % Temperature C POC O2 Flow Rate % Sodium (137-145) mmol/L Potassium (3.5-5.1) mmol/L Chloride (98-107) mmol/L Carbon Dioxide (22-30) mmol/L Anion Gap (5-15) MEQ/L BUN (7-17) mg/dL Creatinine (0.52-1.04) mg/dL Estimated GFR ML/MIN Glucose (74-106) mg/dL POC Glucometer 371 H (74 to 106) mg/dL Hemoglobin A1c (4.5-6.0) % Lactic Acid (0.4-2.0) Calcium (8.4-10.2) mg/dL Total Bilirubin (0.2-1.3) mg/dL AST (14-36) U/L ALT (0-35) U/L Alkaline Phosphatase (38-126) U/L Troponin I < 0.012 (0.000-0.034) ng/mL Serum Total Protein (6.3-8.2) g/dL Albumin (3.5-5.0) g/dL Lipase (23-300) U/L Urine Color (Yellow) Urine Appearance (Clear) Urine pH (4.6-8.0) Ur Specific [place] (1.005-1.030) Urine Protein (Negative) Urine Glucose (UA) (Negative) mg/dL Urine Ketones (Negative) Urine Blood (Negative) Urine Nitrite (Negative) Urine Bilirubin (Negative) Urine Urobilinogen (0.2) mg/dL Ur Leukocyte Esterase (Negative) U Hyaline Cast (Auto) (0-2) /LPF Urine Microscopic RBC (0-5) /HPF Urine Microscopic WBC (0-5) /HPF Ur Epithelial Cells (None Seen) /HPF Urine Bacteria (None Seen) /HPF Urine Culture Reflexed (NO) Urine Opiates Level (NEGATIVE) Ur Methadone (NEGATIVE) Urine Barbiturates (NEGATIVE) Ur Phencyclidine (PCP) (NEGATIVE) Urine Amphetamine (NEGATIVE) U Benzodiazepine Level (NEGATIVE) Urine Cocaine (NEGATIVE) Urine Marijuana (THC) (NEGATIVE) 06/23/23 06/23/23 06/23/23 Range/Units 12:03 12:03 13:04 WBC (4.0-10.5) x10^3/uL RBC (4.1-5.4) x10^6/uL Hgb (12.0-16.0) g/dL Hct (35-47) % MCV (78-100) fL MCH (26-32) pg MCHC (32-36) g/dL RDW (11.5-14.0) % Plt Count (150-450) x10^3/uL MPV (7.5-11.0) fL Gran % (36.0-66.0) % Immature Gran % (Auto) (0.00-0.4) % Nucleat RBC Rel Count (0.00-0.1) % Eos # (Auto) (0-0.5) x10^3/uL Immature Gran # (Auto) (0.00-0.03) x10^3u/L Absolute Lymphs (auto) (1.0-4.6) x10^3/uL Absolute Monos (auto) (0.0-1.3) x10^3/uL Absolute Nucleated RBC (0.00-0.01) x10^3u/L Lymphocytes % (24.0-44.0) % Monocytes % (0.0-12.0) % Eosinophils % (0.00-5.0) % Basophils % (0.0-0.4) % Absolute Granulocytes (1.4-6.9) x10^3/uL Basophils # (0-0.4) x10^3/uL PT (9.4-12.5) SECONDS INR (0.8-3.0) Puncture Site LEFT RADIAL pCO2 17 L* (35-45) mmHg pO2 135 H* (75-100) mmHg Base Excess -5.6 L (-2.0-2.0) O2 Saturation 96.7 (94-100) g/dF ABG pH 7.53 H (7.35-7.45) ABG HCO3 14.2 L* (22-28) ABG O2 Sat (Measured) 99.0 (95-100) % Jefferson Test YES A-a Gradient -7 a/A Ratio 1.05 Hemoglobin 14.2 Carboxyhemoglobin 1.3 (0.0-6.9) % THgb Methemoglobin 1.1 L (1.4-1.5) % Temperature 37.0 C POC O2 Flow Rate 21 % Sodium (137-145) mmol/L Potassium 4.7 (3.5-5.1) mmol/L Chloride (98-107) mmol/L Carbon Dioxide (22-30) mmol/L Anion Gap (5-15) MEQ/L BUN (7-17) mg/dL Creatinine (0.52-1.04) mg/dL Estimated GFR ML/MIN Glucose (74-106) mg/dL POC Glucometer (74 to 106) mg/dL Hemoglobin A1c (4.5-6.0) % Lactic Acid (0.4-2.0) Calcium (8.4-10.2) mg/dL Total Bilirubin (0.2-1.3) mg/dL AST (14-36) U/L ALT (0-35) U/L Alkaline Phosphatase (38-126) U/L Troponin I (0.000-0.034) ng/mL Serum Total Protein (6.3-8.2) g/dL Albumin (3.5-5.0) g/dL Lipase (23-300) U/L Urine Color Yellow (Yellow) Urine Appearance Turbid A (Clear) Urine pH 5.5 (4.6-8.0) Ur Specific [place] >=1.030 A (1.005-1.030) Urine Protein 300 A (Negative) Urine Glucose (UA) >=1000 A (Negative) mg/dL Urine Ketones >=160 A (Negative) Urine Blood Moderate A (Negative) Urine Nitrite Negative (Negative) Urine Bilirubin Negative (Negative) Urine Urobilinogen 0.2 (0.2) mg/dL Ur Leukocyte Esterase Small A (Negative) U Hyaline Cast (Auto) None Seen (0-2) /LPF Urine Microscopic RBC 6-10 A (0-5) /HPF Urine Microscopic WBC 21-50 A (0-5) /HPF Ur Epithelial Cells Rare (None Seen) /HPF Urine Bacteria Moderate A (None Seen) /HPF Urine Culture Reflexed YES (NO) Urine Opiates Level POSITIVE A (NEGATIVE) Ur Methadone NEGATIVE (NEGATIVE) Urine Barbiturates NEGATIVE (NEGATIVE) Ur Phencyclidine (PCP) NEGATIVE (NEGATIVE) Urine Amphetamine NEGATIVE (NEGATIVE) U Benzodiazepine Level NEGATIVE (NEGATIVE) Urine Cocaine NEGATIVE (NEGATIVE) Urine Marijuana (THC) NEGATIVE (NEGATIVE) 06/23/23 06/23/23 06/23/23 Range/Units 13:45 13:45 14:55 WBC (4.0-10.5) x10^3/uL RBC (4.1-5.4) x10^6/uL Hgb (12.0-16.0) g/dL Hct (35-47) % MCV (78-100) fL MCH (26-32) pg MCHC (32-36) g/dL RDW (11.5-14.0) % Plt Count (150-450) x10^3/uL MPV (7.5-11.0) fL Gran % (36.0-66.0) % Immature Gran % (Auto) (0.00-0.4) % Nucleat RBC Rel Count (0.00-0.1) % Eos # (Auto) (0-0.5) x10^3/uL Immature Gran # (Auto) (0.00-0.03) x10^3u/L Absolute Lymphs (auto) (1.0-4.6) x10^3/uL Absolute Monos (auto) (0.0-1.3) x10^3/uL Absolute Nucleated RBC (0.00-0.01) x10^3u/L Lymphocytes % (24.0-44.0) % Monocytes % (0.0-12.0) % Eosinophils % (0.00-5.0) % Basophils % (0.0-0.4) % Absolute Granulocytes (1.4-6.9) x10^3/uL Basophils # (0-0.4) x10^3/uL PT (9.4-12.5) SECONDS INR (0.8-3.0) Puncture Site pCO2 (35-45) mmHg pO2 (75-100) mmHg Base Excess (-2.0-2.0) O2 Saturation (94-100) g/dF ABG pH (7.35-7.45) ABG HCO3 (22-28) ABG O2 Sat (Measured) (95-100) % Jefferson Test A-a Gradient a/A Ratio Hemoglobin Carboxyhemoglobin (0.0-6.9) % THgb Methemoglobin (1.4-1.5) % Temperature C POC O2 Flow Rate % Sodium (137-145) mmol/L Potassium (3.5-5.1) mmol/L Chloride (98-107) mmol/L Carbon Dioxide (22-30) mmol/L Anion Gap (5-15) MEQ/L BUN (7-17) mg/dL Creatinine (0.52-1.04) mg/dL Estimated GFR ML/MIN Glucose (74-106) mg/dL POC Glucometer 259 H 213 H (74 to 106) mg/dL Hemoglobin A1c (4.5-6.0) % Lactic Acid 1.3 (0.4-2.0) Calcium (8.4-10.2) mg/dL Total Bilirubin (0.2-1.3) mg/dL AST (14-36) U/L ALT (0-35) U/L Alkaline Phosphatase (38-126) U/L Troponin I (0.000-0.034) ng/mL Serum Total Protein (6.3-8.2) g/dL Albumin (3.5-5.0) g/dL Lipase (23-300) U/L Urine Color (Yellow) Urine Appearance (Clear) Urine pH (4.6-8.0) Ur Specific [place] (1.005-1.030) Urine Protein (Negative) Urine Glucose (UA) (Negative) mg/dL Urine Ketones (Negative) Urine Blood (Negative) Urine Nitrite (Negative) Urine Bilirubin (Negative) Urine Urobilinogen (0.2) mg/dL Ur Leukocyte Esterase (Negative) U Hyaline Cast (Auto) (0-2) /LPF Urine Microscopic RBC (0-5) /HPF Urine Microscopic WBC (0-5) /HPF Ur Epithelial Cells (None Seen) /HPF Urine Bacteria (None Seen) /HPF Urine Culture Reflexed (NO) Urine Opiates Level (NEGATIVE) Ur Methadone (NEGATIVE) Urine Barbiturates (NEGATIVE) Ur Phencyclidine (PCP) (NEGATIVE) Urine Amphetamine (NEGATIVE) U Benzodiazepine Level (NEGATIVE) Urine Cocaine (NEGATIVE) Urine Marijuana (THC) (NEGATIVE) 06/23/23 06/23/23 06/23/23 Range/Units 16:03 17:10 17:29 WBC (4.0-10.5) x10^3/uL RBC (4.1-5.4) x10^6/uL Hgb (12.0-16.0) g/dL Hct (35-47) % MCV (78-100) fL MCH (26-32) pg MCHC (32-36) g/dL RDW (11.5-14.0) % Plt Count (150-450) x10^3/uL MPV (7.5-11.0) fL Gran % (36.0-66.0) % Immature Gran % (Auto) (0.00-0.4) % Nucleat RBC Rel Count (0.00-0.1) % Eos # (Auto) (0-0.5) x10^3/uL Immature Gran # (Auto) (0.00-0.03) x10^3u/L Absolute Lymphs (auto) (1.0-4.6) x10^3/uL Absolute Monos (auto) (0.0-1.3) x10^3/uL Absolute Nucleated RBC (0.00-0.01) x10^3u/L Lymphocytes % (24.0-44.0) % Monocytes % (0.0-12.0) % Eosinophils % (0.00-5.0) % Basophils % (0.0-0.4) % Absolute Granulocytes (1.4-6.9) x10^3/uL Basophils # (0-0.4) x10^3/uL PT (9.4-12.5) SECONDS INR (0.8-3.0) Puncture Site pCO2 (35-45) mmHg pO2 (75-100) mmHg Base Excess (-2.0-2.0) O2 Saturation (94-100) g/dF ABG pH (7.35-7.45) ABG HCO3 (22-28) ABG O2 Sat (Measured) (95-100) % Jefferson Test A-a Gradient a/A Ratio Hemoglobin Carboxyhemoglobin (0.0-6.9) % THgb Methemoglobin (1.4-1.5) % Temperature C POC O2 Flow Rate % Sodium 133 L (137-145) mmol/L Potassium 3.8 (3.5-5.1) mmol/L Chloride 102 (98-107) mmol/L Carbon Dioxide 17 L (22-30) mmol/L Anion Gap 16.8 H (5-15) MEQ/L BUN 16 (7-17) mg/dL Creatinine 0.49 L (0.52-1.04) mg/dL Estimated GFR 115.5 ML/MIN Glucose 214 H (74-106) mg/dL POC Glucometer 215 H (74 to 106) mg/dL Hemoglobin A1c (4.5-6.0) % Lactic Acid (0.4-2.0) Calcium 8.1 L (8.4-10.2) mg/dL Total Bilirubin (0.2-1.3) mg/dL AST (14-36) U/L ALT (0-35) U/L Alkaline Phosphatase (38-126) U/L Troponin I < 0.012 (0.000-0.034) ng/mL Serum Total Protein (6.3-8.2) g/dL Albumin (3.5-5.0) g/dL Lipase (23-300) U/L Urine Color (Yellow) Urine Appearance (Clear) Urine pH (4.6-8.0) Ur Specific [place] (1.005-1.030) Urine Protein (Negative) Urine Glucose (UA) (Negative) mg/dL Urine Ketones (Negative) Urine Blood (Negative) Urine Nitrite (Negative) Urine Bilirubin (Negative) Urine Urobilinogen (0.2) mg/dL Ur Leukocyte Esterase (Negative) U Hyaline Cast (Auto) (0-2) /LPF Urine Microscopic RBC (0-5) /HPF Urine Microscopic WBC (0-5) /HPF Ur Epithelial Cells (None Seen) /HPF Urine Bacteria (None Seen) /HPF Urine Culture Reflexed (NO) Urine Opiates Level (NEGATIVE) Ur Methadone (NEGATIVE) Urine Barbiturates (NEGATIVE) Ur Phencyclidine (PCP) (NEGATIVE) Urine Amphetamine (NEGATIVE) U Benzodiazepine Level (NEGATIVE) Urine Cocaine (NEGATIVE) Urine Marijuana (THC) (NEGATIVE) 06/23/23 06/23/23 06/23/23 Range/Units 20:05 21:34 Unknown WBC (4.0-10.5) x10^3/uL RBC (4.1-5.4) x10^6/uL Hgb (12.0-16.0) g/dL Hct (35-47) % MCV (78-100) fL MCH (26-32) pg MCHC (32-36) g/dL RDW (11.5-14.0) % Plt Count (150-450) x10^3/uL MPV (7.5-11.0) fL Gran % (36.0-66.0) % Immature Gran % (Auto) (0.00-0.4) % Nucleat RBC Rel Count (0.00-0.1) % Eos # (Auto) (0-0.5) x10^3/uL Immature Gran # (Auto) (0.00-0.03) x10^3u/L Absolute Lymphs (auto) (1.0-4.6) x10^3/uL Absolute Monos (auto) (0.0-1.3) x10^3/uL Absolute Nucleated RBC (0.00-0.01) x10^3u/L Lymphocytes % (24.0-44.0) % Monocytes % (0.0-12.0) % Eosinophils % (0.00-5.0) % Basophils % (0.0-0.4) % Absolute Granulocytes (1.4-6.9) x10^3/uL Basophils # (0-0.4) x10^3/uL PT (9.4-12.5) SECONDS INR (0.8-3.0) Puncture Site pCO2 (35-45) mmHg pO2 (75-100) mmHg Base Excess (-2.0-2.0) O2 Saturation (94-100) g/dF ABG pH (7.35-7.45) ABG HCO3 (22-28) ABG O2 Sat (Measured) (95-100) % Jefferson Test A-a Gradient a/A Ratio Hemoglobin Carboxyhemoglobin (0.0-6.9) % THgb Methemoglobin (1.4-1.5) % Temperature C POC O2 Flow Rate % Sodium (137-145) mmol/L Potassium (3.5-5.1) mmol/L Chloride (98-107) mmol/L Carbon Dioxide (22-30) mmol/L Anion Gap (5-15) MEQ/L BUN (7-17) mg/dL Creatinine (0.52-1.04) mg/dL Estimated GFR ML/MIN Glucose (74-106) mg/dL POC Glucometer 220 H (74 to 106) mg/dL Hemoglobin A1c > 14.00 H (4.5-6.0) % Lactic Acid (0.4-2.0) Calcium (8.4-10.2) mg/dL Total Bilirubin (0.2-1.3) mg/dL AST (14-36) U/L ALT (0-35) U/L Alkaline Phosphatase (38-126) U/L Troponin I < 0.012 (0.000-0.034) ng/mL Serum Total Protein (6.3-8.2) g/dL Albumin (3.5-5.0) g/dL Lipase (23-300) U/L Urine Color (Yellow) Urine Appearance (Clear) Urine pH (4.6-8.0) Ur Specific [place] (1.005-1.030) Urine Protein (Negative) Urine Glucose (UA) (Negative) mg/dL Urine Ketones (Negative) Urine Blood (Negative) Urine Nitrite (Negative) Urine Bilirubin (Negative) Urine Urobilinogen (0.2) mg/dL Ur Leukocyte Esterase (Negative) U Hyaline Cast (Auto) (0-2) /LPF Urine Microscopic RBC (0-5) /HPF Urine Microscopic WBC (0-5) /HPF Ur Epithelial Cells (None Seen) /HPF Urine Bacteria (None Seen) /HPF Urine Culture Reflexed (NO) Urine Opiates Level (NEGATIVE) Ur Methadone (NEGATIVE) Urine Barbiturates (NEGATIVE) Ur Phencyclidine (PCP) (NEGATIVE) Urine Amphetamine (NEGATIVE) U Benzodiazepine Level (NEGATIVE) Urine Cocaine (NEGATIVE) Urine Marijuana (THC) (NEGATIVE) Radiology Exams: Radiology Procedures Category Date Time Status ABDOMEN AND PELVIS W/0 CONTRAS [CT] Stat Exams 06/23/23 11:56 Completed US ABDOMEN LIMITED [ABDOMINAL-LIMITED] [US] Stat Exams 06/23/23 15:44 Completed Assessment/Plan (1) Cholelithiasis Current Visit: Yes Status: Acute Assessment & Plan: -CT showing abnormally distended gallbladder with tiny gallstones -abdominal US ordered -Surgery consult -NPO -Supportive care -Consider HIDA pending US results -Zosyn -Hold anticoagulation for now -Bcult pending 06/24: -US showing GB with gravel/sludge, negative for acute cholecystitis, will most likely follow up op for surgery (2) Elevated lipase Current Visit: Yes Status: Acute Assessment & Plan: -Abnormally distended gallbladder with tiny gallstones. Pancreas unremarkable -US abdomen pending -May be secondary to GB disease, will continue to trend 06/24: -Downtrending now at [phone] Code(s): R74.8 - ABNORMAL LEVELS OF OTHER SERUM ENZYMES (3) Hypertension Current Visit: Yes Status: Acute Assessment & Plan: -Hydralazine prn 06/24 -Stable Code(s): I10 - ESSENTIAL (PRIMARY) HYPERTENSION (4) Hyperglycemia Current Visit: Yes Status: Acute Assessment & Plan: -ADA diet when able to resume -A1c >14 -Accuchecks -Patient non-compliant with home meds, referral to endo on discharge, will make sure she has supplies etc.. 06/24: -8 units lispro with meals, 20u glargine Code(s): R73.9 - HYPERGLYCEMIA, UNSPECIFIED (5) Urinary tract infection Current Visit: Yes Status: Acute Assessment & Plan: -UA mildly suspicious for UTI, will start zosyn, follow culture Code(s): N39.0 - URINARY TRACT INFECTION, SITE NOT SPECIFIED (6) Hyponatremia Current Visit: Yes Status: Acute Assessment & Plan: -Most likely secondary to hyperglycemia, will treat underlying cause and continue to monitor -IVF Code(s): E87.1 - HYPO-OSMOLALITY AND HYPONATREMIA (7) Transaminitis Current Visit: Yes Status: Acute Assessment & Plan: -Mildly elevated, will continue to trend 06/24: -Resolved Code(s): R74.01 - ELEVATION OF LEVELS OF LIVER TRANSAMINASE LEVELS #acidosis -Will start bicarb oral 650mg bid Additional CC's: ZIGGY RAMIREZ (2) Elevated lipase Current Visit: Yes Status: Acute Code(s): R74.8 - ABNORMAL LEVELS OF OTHER SERUM ENZYMES (3) Hypertension Current Visit: Yes Status: Acute Code(s): I10 - ESSENTIAL (PRIMARY) HYPERTENSION (4) Hyperglycemia Current Visit: Yes Status: Acute Code(s): R73.9 - HYPERGLYCEMIA, UNSPECIFIED (5) Urinary tract infection Current Visit: Yes Status: Acute Code(s): N39.0 - URINARY TRACT INFECTION, SITE NOT SPECIFIED (6) Hyponatremia Current Visit: Yes Status: Acute Code(s): E87.1 - HYPO-OSMOLALITY AND HYPONATREMIA (7) Transaminitis Current Visit: Yes Status: Acute Code(s): R74.01 - ELEVATION OF LEVELS OF LIVER TRANSAMINASE LEVELS (8) Leukocytosis Current Visit: Yes Status: Acute Assessment & Plan: -WBC now wnl, could be reactive Code(s): D72.829 - ELEVATED WHITE BLOOD CELL COUNT, UNSPECIFIED (9) Metabolic acidosis Current Visit: Yes Status: Acute Code(s): E87.20 - ACIDOSIS, UNSPECIFIED
[2023-06-24 05:10] LABS: Hemoglobin 11.9 g/dL (12.0-16.0); Mean Cell Volume 89.3 fL (78-100); Mean Corpuscular Hemoglobin 29.5 pg (26-32); Mean Corpuscular Hgb Concent. 33.1 g/dL (32-36); Mean Platelet Volume 9.9 fL (7.5-11.0); Platelet Count 178 x10^3/uL (150-450); Red Blood Count 4.03 x10^6/uL (4.1-5.4); Red Cell Distribution Width 13.8 % (11.5-14.0); White Blood Count 7.3 x10^3/uL (4.0-10.5)
[2023-06-24] MEDS: Zofran 4 MG/2 ML VIAL IV PRN ×2 (05:37→23:53)
[2023-06-24] MEDS: MORPHINE SULFATE 2 MG INJ IV PRN ×2 (05:37→23:47)
[2023-06-24 05:40] LABS: ALBUMIN 3.1 g/dL (3.5-5.0); ANION GAP 12.9 MEQ/L (5-15); BILIRUBIN,TOTAL 0.6 mg/dL (0.2-1.3); Calcium 7.8 mg/dL (8.4-10.2); Creatinine 1 0.55 mg/dL (0.52-1.04); EST GLOMERULAR FILTRATION RATE 112.3 ML/MIN; Potassium 4.1 mmol/L (3.5-5.1); Total Protein 6.2 g/dL (6.3-8.2)
--- NOTE | 2023-06-24 07:44 | PCM.CONS ---
History of Present Illness - Reason for Consult Chief Complaint: Hyperglycemia/UTI Requesting Provider: HAROON PLEITEZ MD Consulting Provider: CARLOTA AMADOR MD History of Present Illness: Hx per chart review and d/w pt was on insulin but has been noncompliant for years. a1c 14. presents with 2 weeks of abdominal queazinnes then over the last 10 days had some degree of abdominal discomfort. pain did worsen and she had nausea also. unable to go to work friday and then also on friday so presented to ED. workup with DKA, also elevated lipase. stones in gallbladder on ct. overnight abd/flank pain some improvement but still some upper abdominal pain radiating to the back. mild nausea. no emesis. + flatus. no bowel concerns. hx appendectomy. xarelto for CVA/stroke. no antiplatelets. " is a 47 year old female with pmhx of DM (was on insulin but has not taken it for a few years), Stroke (2021), HLD, and neuropathy presented to ED 06/23/23 with complaints of nausea (one episode of vomiting this past Friday), abdominal and left flank pain for the past week. She reports that she feels she has been febrile with chills but does not have a thermometer at home. Patient denies hematuria, dysuria, frequency, or burning. Upon presentation patient was afebrile, tachycardic and hypertensive with spo2 @ 99% on RA. CT of the abdomen/pelvis w/o contrast demonstrates an abnormally distended gallbladder with tiny gallstones and urinary bladder intraluminal air either iatrogenic versus gas-forming infection. Lab findings are remarkable for WBC at 12.8, co2 at 19, glucose at 380, AST at 39, ALT at 40, alk phos at 144, and lipase at 620. Urinalysis with ketones, glucose, and many WBC. Lactic acid WNL. Patient was given ceftriaxone, insulin, fentanyl, zofran, and IVF bolus. - Review of Systems Constitutional: Fever, Chills, Fatigue Eyes: No Symptoms Ears, Nose, & Throat: No Symptoms Respiratory: No Symptoms Cardiac: No Symptoms Abdominal/Gastrointestinal: Abdominal Pain, Nausea, Other (Left flank pain CVA tenderness) Genitourinary Symptoms: No Symptoms Musculoskeletal: No Symptoms Skin: No Symptoms Neurological: Other (N/T BLE chronic) Psychological: No Symptoms Endocrine: No Symptoms Hematologic/Lymphatic: No Symptoms Medications & Allergies Home Medications: Home Medication List Gabapentin [Neurontin ] 100 mg PO BID 11/21/21 [History Confirmed 06/23/23] Rivaroxaban 10 mg Tablet [Xarelto 10 mg Tablet] 10 mg PO DAILY 11/21/21 [History Confirmed 06/23/23] Cholecalciferol (Vitamin D3) [Vitamin D3] 500 mcg PO DAILY 11/23/21 [History Confirmed 06/23/23] Cyanocobalamin (Vitamin B-12) [Vitamin B-12] 1,000 mcg PO DAILY 11/23/21 [History Confirmed 06/23/23] Mv,Calcium,Min/Iron/Folic/Vitk [Multi For Her Tablet] 1 tab PO DAILY 11/23/21 [History Confirmed 06/23/23] " Medications & Allergies Home Medications: Home Medication List Gabapentin [Neurontin ] 100 mg PO BID 11/21/21 [History Confirmed 06/23/23] Rivaroxaban 10 mg Tablet [Xarelto 10 mg Tablet] 10 mg PO DAILY 11/21/21 [History Confirmed 06/23/23] Cholecalciferol (Vitamin D3) [Vitamin D3] 500 mcg PO DAILY 11/23/21 [History Confirmed 06/23/23] Cyanocobalamin (Vitamin B-12) [Vitamin B-12] 1,000 mcg PO DAILY 11/23/21 [History Confirmed 06/23/23] Mv,Calcium,Min/Iron/Folic/Vitk [Multi For Her Tablet] 1 tab PO DAILY 11/23/21 [History Confirmed 06/23/23] Allergies/Adverse Reactions: Allergies Allergy/AdvReac Type Severity Reaction Status Date / Time No Known Drug Allergies Allergy Verified 06/23/23 12:03 - Past Medical History Past Medical History: Yes Neurological History: Peripheral Neuropathy, Stroke ENT History: No Pertinent History Cardiac History: No Pertinent History Respiratory History: No Pertinent History Endocrine Medical History: Diabetes Type II Musculoskelatal History: No Pertinent History GI Medical History: No Pertinent History History: No Pertinent History Pyscho-Social History: No Pertinent History Reproductive Disorders: No Pertinent History Comment: HX OF AMPUTATION LEFT GREAT TOE AFTER SUFFERING CRUSH INJURY AND NON- HEALING WOUND 05/2018. - Female History Hx Last Menstrual Period: 2013 Are you now?: No - Past Surgical History Past Surgical History: Yes Neuro Surgical History: No Pertinent History Cardiac History: No Pertinent History Respiratory Surgery: No Pertinent History GI Surgical History: Appendectomy Genitourinary Surgical Hx: No Pertinent History Musculskeletal Surgical Hx: Amputation Female Surgical History: No Pertinent History Other Surgical History: left great toe amputated - Social History Smoking Status: Former smoker How long have you smoked: 24 years Exposure to second hand smoke: No Alcohol: None Drug Use: none - Physical Exam Vital Signs: Vital Signs - 24 hr Temp Pulse Resp BP BP Pulse Ox 06/24/23 06:44 98.2 F 72 16 144/70 97 06/24/23 03:59 96.9 F 80 16 137/73 95 06/23/23 23:40 97.1 F 85 16 115/62 97 06/23/23 19:44 97.1 F 84 16 139/67 98 06/23/23 16:00 98.1 F 93 H 18 152/72 99 06/23/23 14:13 98.1 F 93 H 18 152/72 99 06/23/23 13:30 139/90 06/23/23 13:00 92 H 16 136/87 98 06/23/23 12:30 91 H 4 L 124/82 98 06/23/23 12:29 96 H 21 97 06/23/23 12:27 98 H 13 97 06/23/23 12:00 122/90 98 06/23/23 11:46 97.3 F 117 H 136/109 99 General Appearance: no apparent distress Neurologic Exam: alert, oriented x 3 Eye Exam: eyes nml inspection, No scleral icterus Neck Exam: normal inspection Respiratory Exam: No respiratory distress, No accessory muscle use Cardiovascular Exam: regular rate/rhythm Gastrointestinal/Abdomen Exam: soft, tenderness Pelvic Exam: not done Rectal Exam: deferred Extremity Exam: normal inspection (abd mild upper abdominal pain, epigastric/ruq. no fontanez. no r/g.) Results - Labs Lab/Micro Results: Lab Results-Last 24 Hours 06/23/23 06/23/23 06/23/23 Range/Units 12:00 12:00 12:00 WBC 12.8 H (4.0-10.5) x10^3/uL RBC 5.22 (4.1-5.4) x10^6/uL Hgb 15.6 (12.0-16.0) g/dL Hct 45.8 (35-47) % MCV 87.7 (78-100) fL MCH 29.9 (26-32) pg MCHC 34.1 (32-36) g/dL RDW 13.7 (11.5-14.0) % Plt Count 286 (150-450) x10^3/uL MPV 10.4 (7.5-11.0) fL Gran % 68.9 H (36.0-66.0) % Immature Gran % (Auto) 0.3 (0.00-0.4) % Nucleat RBC Rel Count 0.0 (0.00-0.1) % Eos # (Auto) 0.08 (0-0.5) x10^3/uL Immature Gran # (Auto) 0.04 H (0.00-0.03) x10^3u/L Absolute Lymphs (auto) 2.95 (1.0-4.6) x10^3/uL Absolute Monos (auto) 0.82 (0.0-1.3) x10^3/uL Absolute Nucleated RBC 0.00 (0.00-0.01) x10^3u/L Lymphocytes % 23.1 L (24.0-44.0) % Monocytes % 6.4 (0.0-12.0) % Eosinophils % 0.6 (0.00-5.0) % Basophils % 0.7 (0.0-0.4) % Absolute Granulocytes 8.79 H (1.4-6.9) x10^3/uL Basophils # 0.09 (0-0.4) x10^3/uL PT (9.4-12.5) SECONDS INR (0.8-3.0) Puncture Site pCO2 (35-45) mmHg pO2 (75-100) mmHg Base Excess (-2.0-2.0) O2 Saturation (94-100) g/dF ABG pH (7.35-7.45) ABG HCO3 (22-28) ABG O2 Sat (Measured) (95-100) % [facility] Test A-a Gradient a/A Ratio Hemoglobin Carboxyhemoglobin (0.0-6.9) % THgb Methemoglobin (1.4-1.5) % Temperature C POC O2 Flow Rate % Sodium 131 L (137-145) mmol/L Potassium 4.3 (3.5-5.1) mmol/L Chloride 95 L (98-107) mmol/L Carbon Dioxide 19 L (22-30) mmol/L Anion Gap 21.4 H (5-15) MEQ/L BUN 21 H (7-17) mg/dL Creatinine 0.68 (0.52-1.04) mg/dL Estimated GFR 106.7 ML/MIN Glucose 380 H (74-106) mg/dL POC Glucometer (74 to 106) mg/dL Hemoglobin A1c (4.5-6.0) % Lactic Acid 2.5 H (0.4-2.0) Calcium 9.3 (8.4-10.2) mg/dL Total Bilirubin 1.00 (0.2-1.3) mg/dL AST 39 H (14-36) U/L ALT 40 H (0-35) U/L Alkaline Phosphatase 144 H (38-126) U/L Troponin I (0.000-0.034) ng/mL Serum Total Protein 8.8 H (6.3-8.2) g/dL Albumin 4.6 (3.5-5.0) g/dL Lipase 620 H (23-300) U/L Urine Color (Yellow) Urine Appearance (Clear) Urine pH (4.6-8.0) Ur Specific [place] (1.005-1.030) Urine Protein (Negative) Urine Glucose (UA) (Negative) mg/dL Urine Ketones (Negative) Urine Blood (Negative) Urine Nitrite (Negative) Urine Bilirubin (Negative) Urine Urobilinogen (0.2) mg/dL Ur Leukocyte Esterase (Negative) U Hyaline Cast (Auto) (0-2) /LPF Urine Microscopic RBC (0-5) /HPF Urine Microscopic WBC (0-5) /HPF Ur Epithelial Cells (None Seen) /HPF Urine Bacteria (None Seen) /HPF Urine Culture Reflexed (NO) Urine Opiates Level (NEGATIVE) Ur Methadone (NEGATIVE) Urine Barbiturates (NEGATIVE) Ur Phencyclidine (PCP) (NEGATIVE) Urine Amphetamine (NEGATIVE) U Benzodiazepine Level (NEGATIVE) Urine Cocaine (NEGATIVE) Urine Marijuana (THC) (NEGATIVE) 06/23/23 06/23/23 06/23/23 Range/Units 12:00 12:00 12:00 WBC (4.0-10.5) x10^3/uL RBC (4.1-5.4) x10^6/uL Hgb (12.0-16.0) g/dL Hct (35-47) % MCV (78-100) fL MCH (26-32) pg MCHC (32-36) g/dL RDW (11.5-14.0) % Plt Count (150-450) x10^3/uL MPV (7.5-11.0) fL Gran % (36.0-66.0) % Immature Gran % (Auto) (0.00-0.4) % Nucleat RBC Rel Count (0.00-0.1) % Eos # (Auto) (0-0.5) x10^3/uL Immature Gran # (Auto) (0.00-0.03) x10^3u/L Absolute Lymphs (auto) (1.0-4.6) x10^3/uL Absolute Monos (auto) (0.0-1.3) x10^3/uL Absolute Nucleated RBC (0.00-0.01) x10^3u/L Lymphocytes % (24.0-44.0) % Monocytes % (0.0-12.0) % Eosinophils % (0.00-5.0) % Basophils % (0.0-0.4) % Absolute Granulocytes (1.4-6.9) x10^3/uL Basophils # (0-0.4) x10^3/uL PT 10.8 (9.4-12.5) SECONDS INR 0.99 (0.8-3.0) Puncture Site pCO2 (35-45) mmHg pO2 (75-100) mmHg Base Excess (-2.0-2.0) O2 Saturation (94-100) g/dF ABG pH (7.35-7.45) ABG HCO3 (22-28) ABG O2 Sat (Measured) (95-100) % [facility] Test A-a Gradient a/A Ratio Hemoglobin Carboxyhemoglobin (0.0-6.9) % THgb Methemoglobin (1.4-1.5) % Temperature C POC O2 Flow Rate % Sodium (137-145) mmol/L Potassium (3.5-5.1) mmol/L Chloride (98-107) mmol/L Carbon Dioxide (22-30) mmol/L Anion Gap (5-15) MEQ/L BUN (7-17) mg/dL Creatinine (0.52-1.04) mg/dL Estimated GFR ML/MIN Glucose (74-106) mg/dL POC Glucometer 371 H (74 to 106) mg/dL Hemoglobin A1c (4.5-6.0) % Lactic Acid (0.4-2.0) Calcium (8.4-10.2) mg/dL Total Bilirubin (0.2-1.3) mg/dL AST (14-36) U/L ALT (0-35) U/L Alkaline Phosphatase (38-126) U/L Troponin I < 0.012 (0.000-0.034) ng/mL Serum Total Protein (6.3-8.2) g/dL Albumin (3.5-5.0) g/dL Lipase (23-300) U/L Urine Color (Yellow) Urine Appearance (Clear) Urine pH (4.6-8.0) Ur Specific [place] (1.005-1.030) Urine Protein (Negative) Urine Glucose (UA) (Negative) mg/dL Urine Ketones (Negative) Urine Blood (Negative) Urine Nitrite (Negative) Urine Bilirubin (Negative) Urine Urobilinogen (0.2) mg/dL Ur Leukocyte Esterase (Negative) U Hyaline Cast (Auto) (0-2) /LPF Urine Microscopic RBC (0-5) /HPF Urine Microscopic WBC (0-5) /HPF Ur Epithelial Cells (None Seen) /HPF Urine Bacteria (None Seen) /HPF Urine Culture Reflexed (NO) Urine Opiates Level (NEGATIVE) Ur Methadone (NEGATIVE) Urine Barbiturates (NEGATIVE) Ur Phencyclidine (PCP) (NEGATIVE) Urine Amphetamine (NEGATIVE) U Benzodiazepine Level (NEGATIVE) Urine Cocaine (NEGATIVE) Urine Marijuana (THC) (NEGATIVE) 06/23/23 06/23/23 06/23/23 Range/Units 12:03 12:03 13:04 WBC (4.0-10.5) x10^3/uL RBC (4.1-5.4) x10^6/uL Hgb (12.0-16.0) g/dL Hct (35-47) % MCV (78-100) fL MCH (26-32) pg MCHC (32-36) g/dL RDW (11.5-14.0) % Plt Count (150-450) x10^3/uL MPV (7.5-11.0) fL Gran % (36.0-66.0) % Immature Gran % (Auto) (0.00-0.4) % Nucleat RBC Rel Count (0.00-0.1) % Eos # (Auto) (0-0.5) x10^3/uL Immature Gran # (Auto) (0.00-0.03) x10^3u/L Absolute Lymphs (auto) (1.0-4.6) x10^3/uL Absolute Monos (auto) (0.0-1.3) x10^3/uL Absolute Nucleated RBC (0.00-0.01) x10^3u/L Lymphocytes % (24.0-44.0) % Monocytes % (0.0-12.0) % Eosinophils % (0.00-5.0) % Basophils % (0.0-0.4) % Absolute Granulocytes (1.4-6.9) x10^3/uL Basophils # (0-0.4) x10^3/uL PT (9.4-12.5) SECONDS INR (0.8-3.0) Puncture Site LEFT RADIAL pCO2 17 L* (35-45) mmHg pO2 135 H* (75-100) mmHg Base Excess -5.6 L (-2.0-2.0) O2 Saturation 96.7 (94-100) g/dF ABG pH 7.53 H (7.35-7.45) ABG HCO3 14.2 L* (22-28) ABG O2 Sat (Measured) 99.0 (95-100) % [facility] Test YES A-a Gradient -7 a/A Ratio 1.05 Hemoglobin 14.2 Carboxyhemoglobin 1.3 (0.0-6.9) % THgb Methemoglobin 1.1 L (1.4-1.5) % Temperature 37.0 C POC O2 Flow Rate 21 % Sodium (137-145) mmol/L Potassium 4.7 (3.5-5.1) mmol/L Chloride (98-107) mmol/L Carbon Dioxide (22-30) mmol/L Anion Gap (5-15) MEQ/L BUN (7-17) mg/dL Creatinine (0.52-1.04) mg/dL Estimated GFR ML/MIN Glucose (74-106) mg/dL POC Glucometer (74 to 106) mg/dL Hemoglobin A1c (4.5-6.0) % Lactic Acid (0.4-2.0) Calcium (8.4-10.2) mg/dL Total Bilirubin (0.2-1.3) mg/dL AST (14-36) U/L ALT (0-35) U/L Alkaline Phosphatase (38-126) U/L Troponin I (0.000-0.034) ng/mL Serum Total Protein (6.3-8.2) g/dL Albumin (3.5-5.0) g/dL Lipase (23-300) U/L Urine Color Yellow (Yellow) Urine Appearance Turbid A (Clear) Urine pH 5.5 (4.6-8.0) Ur Specific [place] >=1.030 A (1.005-1.030) Urine Protein 300 A (Negative) Urine Glucose (UA) >=1000 A (Negative) mg/dL Urine Ketones >=160 A (Negative) Urine Blood Moderate A (Negative) Urine Nitrite Negative (Negative) Urine Bilirubin Negative (Negative) Urine Urobilinogen 0.2 (0.2) mg/dL Ur Leukocyte Esterase Small A (Negative) U Hyaline Cast (Auto) None Seen (0-2) /LPF Urine Microscopic RBC 6-10 A (0-5) /HPF Urine Microscopic WBC 21-50 A (0-5) /HPF Ur Epithelial Cells Rare (None Seen) /HPF Urine Bacteria Moderate A (None Seen) /HPF Urine Culture Reflexed YES (NO) Urine Opiates Level POSITIVE A (NEGATIVE) Ur Methadone NEGATIVE (NEGATIVE) Urine Barbiturates NEGATIVE (NEGATIVE) Ur Phencyclidine (PCP) NEGATIVE (NEGATIVE) Urine Amphetamine NEGATIVE (NEGATIVE) U Benzodiazepine Level NEGATIVE (NEGATIVE) Urine Cocaine NEGATIVE (NEGATIVE) Urine Marijuana (THC) NEGATIVE (NEGATIVE) 06/23/23 06/23/23 06/23/23 Range/Units 13:45 13:45 14:55 WBC (4.0-10.5) x10^3/uL RBC (4.1-5.4) x10^6/uL Hgb (12.0-16.0) g/dL Hct (35-47) % MCV (78-100) fL MCH (26-32) pg MCHC (32-36) g/dL RDW (11.5-14.0) % Plt Count (150-450) x10^3/uL MPV (7.5-11.0) fL Gran % (36.0-66.0) % Immature Gran % (Auto) (0.00-0.4) % Nucleat RBC Rel Count (0.00-0.1) % Eos # (Auto) (0-0.5) x10^3/uL Immature Gran # (Auto) (0.00-0.03) x10^3u/L Absolute Lymphs (auto) (1.0-4.6) x10^3/uL Absolute Monos (auto) (0.0-1.3) x10^3/uL Absolute Nucleated RBC (0.00-0.01) x10^3u/L Lymphocytes % (24.0-44.0) % Monocytes % (0.0-12.0) % Eosinophils % (0.00-5.0) % Basophils % (0.0-0.4) % Absolute Granulocytes (1.4-6.9) x10^3/uL Basophils # (0-0.4) x10^3/uL PT (9.4-12.5) SECONDS INR (0.8-3.0) Puncture Site pCO2 (35-45) mmHg pO2 (75-100) mmHg Base Excess (-2.0-2.0) O2 Saturation (94-100) g/dF ABG pH (7.35-7.45) ABG HCO3 (22-28) ABG O2 Sat (Measured) (95-100) % [facility] Test A-a Gradient a/A Ratio Hemoglobin Carboxyhemoglobin (0.0-6.9) % THgb Methemoglobin (1.4-1.5) % Temperature C POC O2 Flow Rate % Sodium (137-145) mmol/L Potassium (3.5-5.1) mmol/L Chloride (98-107) mmol/L Carbon Dioxide (22-30) mmol/L Anion Gap (5-15) MEQ/L BUN (7-17) mg/dL Creatinine (0.52-1.04) mg/dL Estimated GFR ML/MIN Glucose (74-106) mg/dL POC Glucometer 259 H 213 H (74 to 106) mg/dL Hemoglobin A1c (4.5-6.0) % Lactic Acid 1.3 (0.4-2.0) Calcium (8.4-10.2) mg/dL Total Bilirubin (0.2-1.3) mg/dL AST (14-36) U/L ALT (0-35) U/L Alkaline Phosphatase (38-126) U/L Troponin I (0.000-0.034) ng/mL Serum Total Protein (6.3-8.2) g/dL Albumin (3.5-5.0) g/dL Lipase (23-300) U/L Urine Color (Yellow) Urine Appearance (Clear) Urine pH (4.6-8.0) Ur Specific [place] (1.005-1.030) Urine Protein (Negative) Urine Glucose (UA) (Negative) mg/dL Urine Ketones (Negative) Urine Blood (Negative) Urine Nitrite (Negative) Urine Bilirubin (Negative) Urine Urobilinogen (0.2) mg/dL Ur Leukocyte Esterase (Negative) U Hyaline Cast (Auto) (0-2) /LPF Urine Microscopic RBC (0-5) /HPF Urine Microscopic WBC (0-5) /HPF Ur Epithelial Cells (None Seen) /HPF Urine Bacteria (None Seen) /HPF Urine Culture Reflexed (NO) Urine Opiates Level (NEGATIVE) Ur Methadone (NEGATIVE) Urine Barbiturates (NEGATIVE) Ur Phencyclidine (PCP) (NEGATIVE) Urine Amphetamine (NEGATIVE) U Benzodiazepine Level (NEGATIVE) Urine Cocaine (NEGATIVE) Urine Marijuana (THC) (NEGATIVE) 06/23/23 06/23/23 06/23/23 Range/Units 16:03 17:10 17:29 WBC (4.0-10.5) x10^3/uL RBC (4.1-5.4) x10^6/uL Hgb (12.0-16.0) g/dL Hct (35-47) % MCV (78-100) fL MCH (26-32) pg MCHC (32-36) g/dL RDW (11.5-14.0) % Plt Count (150-450) x10^3/uL MPV (7.5-11.0) fL Gran % (36.0-66.0) % Immature Gran % (Auto) (0.00-0.4) % Nucleat RBC Rel Count (0.00-0.1) % Eos # (Auto) (0-0.5) x10^3/uL Immature Gran # (Auto) (0.00-0.03) x10^3u/L Absolute Lymphs (auto) (1.0-4.6) x10^3/uL Absolute Monos (auto) (0.0-1.3) x10^3/uL Absolute Nucleated RBC (0.00-0.01) x10^3u/L Lymphocytes % (24.0-44.0) % Monocytes % (0.0-12.0) % Eosinophils % (0.00-5.0) % Basophils % (0.0-0.4) % Absolute Granulocytes (1.4-6.9) x10^3/uL Basophils # (0-0.4) x10^3/uL PT (9.4-12.5) SECONDS INR (0.8-3.0) Puncture Site pCO2 (35-45) mmHg pO2 (75-100) mmHg Base Excess (-2.0-2.0) O2 Saturation (94-100) g/dF ABG pH (7.35-7.45) ABG HCO3 (22-28) ABG O2 Sat (Measured) (95-100) % [facility] Test A-a Gradient a/A Ratio Hemoglobin Carboxyhemoglobin (0.0-6.9) % THgb Methemoglobin (1.4-1.5) % Temperature C POC O2 Flow Rate % Sodium 133 L (137-145) mmol/L Potassium 3.8 (3.5-5.1) mmol/L Chloride 102 (98-107) mmol/L Carbon Dioxide 17 L (22-30) mmol/L Anion Gap 16.8 H (5-15) MEQ/L BUN 16 (7-17) mg/dL Creatinine 0.49 L (0.52-1.04) mg/dL Estimated GFR 115.5 ML/MIN Glucose 214 H (74-106) mg/dL POC Glucometer 215 H (74 to 106) mg/dL Hemoglobin A1c (4.5-6.0) % Lactic Acid (0.4-2.0) Calcium 8.1 L (8.4-10.2) mg/dL Total Bilirubin (0.2-1.3) mg/dL AST (14-36) U/L ALT (0-35) U/L Alkaline Phosphatase (38-126) U/L Troponin I < 0.012 (0.000-0.034) ng/mL Serum Total Protein (6.3-8.2) g/dL Albumin (3.5-5.0) g/dL Lipase (23-300) U/L Urine Color (Yellow) Urine Appearance (Clear) Urine pH (4.6-8.0) Ur Specific [place] (1.005-1.030) Urine Protein (Negative) Urine Glucose (UA) (Negative) mg/dL Urine Ketones (Negative) Urine Blood (Negative) Urine Nitrite (Negative) Urine Bilirubin (Negative) Urine Urobilinogen (0.2) mg/dL Ur Leukocyte Esterase (Negative) U Hyaline Cast (Auto) (0-2) /LPF Urine Microscopic RBC (0-5) /HPF Urine Microscopic WBC (0-5) /HPF Ur Epithelial Cells (None Seen) /HPF Urine Bacteria (None Seen) /HPF Urine Culture Reflexed (NO) Urine Opiates Level (NEGATIVE) Ur Methadone (NEGATIVE) Urine Barbiturates (NEGATIVE) Ur Phencyclidine (PCP) (NEGATIVE) Urine Amphetamine (NEGATIVE) U Benzodiazepine Level (NEGATIVE) Urine Cocaine (NEGATIVE) Urine Marijuana (THC) (NEGATIVE) 06/23/23 06/23/23 06/23/23 Range/Units 20:05 21:34 Unknown WBC (4.0-10.5) x10^3/uL RBC (4.1-5.4) x10^6/uL Hgb (12.0-16.0) g/dL Hct (35-47) % MCV (78-100) fL MCH (26-32) pg MCHC (32-36) g/dL RDW (11.5-14.0) % Plt Count (150-450) x10^3/uL MPV (7.5-11.0) fL Gran % (36.0-66.0) % Immature Gran % (Auto) (0.00-0.4) % Nucleat RBC Rel Count (0.00-0.1) % Eos # (Auto) (0-0.5) x10^3/uL Immature Gran # (Auto) (0.00-0.03) x10^3u/L Absolute Lymphs (auto) (1.0-4.6) x10^3/uL Absolute Monos (auto) (0.0-1.3) x10^3/uL Absolute Nucleated RBC (0.00-0.01) x10^3u/L Lymphocytes % (24.0-44.0) % Monocytes % (0.0-12.0) % Eosinophils % (0.00-5.0) % Basophils % (0.0-0.4) % Absolute Granulocytes (1.4-6.9) x10^3/uL Basophils # (0-0.4) x10^3/uL PT (9.4-12.5) SECONDS INR (0.8-3.0) Puncture Site pCO2 (35-45) mmHg pO2 (75-100) mmHg Base Excess (-2.0-2.0) O2 Saturation (94-100) g/dF ABG pH (7.35-7.45) ABG HCO3 (22-28) ABG O2 Sat (Measured) (95-100) % [facility] Test A-a Gradient a/A Ratio Hemoglobin Carboxyhemoglobin (0.0-6.9) % THgb Methemoglobin (1.4-1.5) % Temperature C POC O2 Flow Rate % Sodium (137-145) mmol/L Potassium (3.5-5.1) mmol/L Chloride (98-107) mmol/L Carbon Dioxide (22-30) mmol/L Anion Gap (5-15) MEQ/L BUN (7-17) mg/dL Creatinine (0.52-1.04) mg/dL Estimated GFR ML/MIN Glucose (74-106) mg/dL POC Glucometer 220 H (74 to 106) mg/dL Hemoglobin A1c > 14.00 H (4.5-6.0) % Lactic Acid (0.4-2.0) Calcium (8.4-10.2) mg/dL Total Bilirubin (0.2-1.3) mg/dL AST (14-36) U/L ALT (0-35) U/L Alkaline Phosphatase (38-126) U/L Troponin I < 0.012 (0.000-0.034) ng/mL Serum Total Protein (6.3-8.2) g/dL Albumin (3.5-5.0) g/dL Lipase (23-300) U/L Urine Color (Yellow) Urine Appearance (Clear) Urine pH (4.6-8.0) Ur Specific [place] (1.005-1.030) Urine Protein (Negative) Urine Glucose (UA) (Negative) mg/dL Urine Ketones (Negative) Urine Blood (Negative) Urine Nitrite (Negative) Urine Bilirubin (Negative) Urine Urobilinogen (0.2) mg/dL Ur Leukocyte Esterase (Negative) U Hyaline Cast (Auto) (0-2) /LPF Urine Microscopic RBC (0-5) /HPF Urine Microscopic WBC (0-5) /HPF Ur Epithelial Cells (None Seen) /HPF Urine Bacteria (None Seen) /HPF Urine Culture Reflexed (NO) Urine Opiates Level (NEGATIVE) Ur Methadone (NEGATIVE) Urine Barbiturates (NEGATIVE) Ur Phencyclidine (PCP) (NEGATIVE) Urine Amphetamine (NEGATIVE) U Benzodiazepine Level (NEGATIVE) Urine Cocaine (NEGATIVE) Urine Marijuana (THC) (NEGATIVE) 06/24/23 06/24/23 06/24/23 Range/Units 04:57 04:57 04:57 WBC 7.3 (4.0-10.5) x10^3/uL RBC 4.03 L (4.1-5.4) x10^6/uL Hgb 11.9 L D (12.0-16.0) g/dL Hct 36.0 (35-47) % MCV 89.3 (78-100) fL MCH 29.5 (26-32) pg MCHC 33.1 (32-36) g/dL RDW 13.8 (11.5-14.0) % Plt Count 178 D (150-450) x10^3/uL MPV 9.9 (7.5-11.0) fL Gran % (36.0-66.0) % Immature Gran % (Auto) (0.00-0.4) % Nucleat RBC Rel Count (0.00-0.1) % Eos # (Auto) (0-0.5) x10^3/uL Immature Gran # (Auto) (0.00-0.03) x10^3u/L Absolute Lymphs (auto) (1.0-4.6) x10^3/uL Absolute Monos (auto) (0.0-1.3) x10^3/uL Absolute Nucleated RBC (0.00-0.01) x10^3u/L Lymphocytes % (24.0-44.0) % Monocytes % (0.0-12.0) % Eosinophils % (0.00-5.0) % Basophils % (0.0-0.4) % Absolute Granulocytes (1.4-6.9) x10^3/uL Basophils # (0-0.4) x10^3/uL PT (9.4-12.5) SECONDS INR (0.8-3.0) Puncture Site pCO2 (35-45) mmHg pO2 (75-100) mmHg Base Excess (-2.0-2.0) O2 Saturation (94-100) g/dF ABG pH (7.35-7.45) ABG HCO3 (22-28) ABG O2 Sat (Measured) (95-100) % [place] Test A-a Gradient a/A Ratio Hemoglobin Carboxyhemoglobin (0.0-6.9) % THgb Methemoglobin (1.4-1.5) % Temperature C POC O2 Flow Rate % Sodium 133 L (137-145) mmol/L Potassium 4.1 (3.5-5.1) mmol/L Chloride 105 (98-107) mmol/L Carbon Dioxide 18 L (22-30) mmol/L Anion Gap 12.9 (5-15) MEQ/L BUN 14 (7-17) mg/dL Creatinine 0.55 (0.52-1.04) mg/dL Estimated GFR 112.3 ML/MIN Glucose 218 H (74-106) mg/dL POC Glucometer (74 to 106) mg/dL Hemoglobin A1c (4.5-6.0) % Lactic Acid (0.4-2.0) Calcium 7.8 L (8.4-10.2) mg/dL Total Bilirubin 0.60 (0.2-1.3) mg/dL AST 33 (14-36) U/L ALT 27 (0-35) U/L Alkaline Phosphatase 78 (38-126) U/L Troponin I (0.000-0.034) ng/mL Serum Total Protein 6.2 L (6.3-8.2) g/dL Albumin 3.1 L (3.5-5.0) g/dL Lipase 533 H (23-300) U/L Urine Color (Yellow) Urine Appearance (Clear) Urine pH (4.6-8.0) Ur Specific [place] (1.005-1.030) Urine Protein (Negative) Urine Glucose (UA) (Negative) mg/dL Urine Ketones (Negative) Urine Blood (Negative) Urine Nitrite (Negative) Urine Bilirubin (Negative) Urine Urobilinogen (0.2) mg/dL Ur Leukocyte Esterase (Negative) U Hyaline Cast (Auto) (0-2) /LPF Urine Microscopic RBC (0-5) /HPF Urine Microscopic WBC (0-5) /HPF Ur Epithelial Cells (None Seen) /HPF Urine Bacteria (None Seen) /HPF Urine Culture Reflexed (NO) Urine Opiates Level (NEGATIVE) Ur Methadone (NEGATIVE) Urine Barbiturates (NEGATIVE) Ur Phencyclidine (PCP) (NEGATIVE) Urine Amphetamine (NEGATIVE) U Benzodiazepine Level (NEGATIVE) Urine Cocaine (NEGATIVE) Urine Marijuana (THC) (NEGATIVE) 06/24/23 Range/Units 07:11 WBC (4.0-10.5) x10^3/uL RBC (4.1-5.4) x10^6/uL Hgb (12.0-16.0) g/dL Hct (35-47) % MCV (78-100) fL MCH (26-32) pg MCHC (32-36) g/dL RDW (11.5-14.0) % Plt Count (150-450) x10^3/uL MPV (7.5-11.0) fL Gran % (36.0-66.0) % Immature Gran % (Auto) (0.00-0.4) % Nucleat RBC Rel Count (0.00-0.1) % Eos # (Auto) (0-0.5) x10^3/uL Immature Gran # (Auto) (0.00-0.03) x10^3u/L Absolute Lymphs (auto) (1.0-4.6) x10^3/uL Absolute Monos (auto) (0.0-1.3) x10^3/uL Absolute Nucleated RBC (0.00-0.01) x10^3u/L Lymphocytes % (24.0-44.0) % Monocytes % (0.0-12.0) % Eosinophils % (0.00-5.0) % Basophils % (0.0-0.4) % Absolute Granulocytes (1.4-6.9) x10^3/uL Basophils # (0-0.4) x10^3/uL PT (9.4-12.5) SECONDS INR (0.8-3.0) Puncture Site pCO2 (35-45) mmHg pO2 (75-100) mmHg Base Excess (-2.0-2.0) O2 Saturation (94-100) g/dF ABG pH (7.35-7.45) ABG HCO3 (22-28) ABG O2 Sat (Measured) (95-100) % [place] Test A-a Gradient a/A Ratio Hemoglobin Carboxyhemoglobin (0.0-6.9) % THgb Methemoglobin (1.4-1.5) % Temperature C POC O2 Flow Rate % Sodium (137-145) mmol/L Potassium (3.5-5.1) mmol/L Chloride (98-107) mmol/L Carbon Dioxide (22-30) mmol/L Anion Gap (5-15) MEQ/L BUN (7-17) mg/dL Creatinine (0.52-1.04) mg/dL Estimated GFR ML/MIN Glucose (74-106) mg/dL POC Glucometer 203 H (74 to 106) mg/dL Hemoglobin A1c (4.5-6.0) % Lactic Acid (0.4-2.0) Calcium (8.4-10.2) mg/dL Total Bilirubin (0.2-1.3) mg/dL AST (14-36) U/L ALT (0-35) U/L Alkaline Phosphatase (38-126) U/L Troponin I (0.000-0.034) ng/mL Serum Total Protein (6.3-8.2) g/dL Albumin (3.5-5.0) g/dL Lipase (23-300) U/L Urine Color (Yellow) Urine Appearance (Clear) Urine pH (4.6-8.0) Ur Specific [place] (1.005-1.030) Urine Protein (Negative) Urine Glucose (UA) (Negative) mg/dL Urine Ketones (Negative) Urine Blood (Negative) Urine Nitrite (Negative) Urine Bilirubin (Negative) Urine Urobilinogen (0.2) mg/dL Ur Leukocyte Esterase (Negative) U Hyaline Cast (Auto) (0-2) /LPF Urine Microscopic RBC (0-5) /HPF Urine Microscopic WBC (0-5) /HPF Ur Epithelial Cells (None Seen) /HPF Urine Bacteria (None Seen) /HPF Urine Culture Reflexed (NO) Urine Opiates Level (NEGATIVE) Ur Methadone (NEGATIVE) Urine Barbiturates (NEGATIVE) Ur Phencyclidine (PCP) (NEGATIVE) Urine Amphetamine (NEGATIVE) U Benzodiazepine Level (NEGATIVE) Urine Cocaine (NEGATIVE) Urine Marijuana (THC) (NEGATIVE) Accuchecks Date 06/23/23 Date 06/23/23 Date 06/23/23 Date 06/23/23 Time 17:34 Time 13:45 Time 12:00 - Radiology Impressions Radiology Exams & Impressions: Radiology Procedures Category Date Time Status ABDOMEN AND PELVIS W/0 CONTRAS [CT] Stat Exams 06/23/23 11:56 Completed US ABDOMEN LIMITED [ABDOMINAL-LIMITED] [US] Stat Exams 06/23/23 15:44 Completed - Other Procedures and Tests 47yo female admitted with nausea, abd pain, anion gap metabolic acidosis with ketones in urine, DKA, a1c over 14 also with moderately elevated lipase not 3 x normal. she does have abdominal pain that could be consistent with pancreatitis in the upper abdomen, but I see no radiologic evidence of pancreatitis on her CT scan and the lipase is not 3x upper limits of normal. therefore there is no diagnosis of pancreatitis at this time. She does have gallstones on ct and US. At present it is unclear if her abdominal symptoms are more DKA related or p ancreaticobiliary. -treat medically. -consider cholecystectomy, given the uncertainty in any pancreatitis diagnosis unclear whether she should have this done this asmission or follow up in office
[2023-06-24] MEDS: HUMALOG SQ PRN ×3 (08:43→20:54)
[2023-06-24] MEDS: HUMALOG SQ SCH ×2 (08:43→12:24)
[2023-06-24] MEDS ORDERED: HUMALOG SQ SCH ×2 (12:00→17:00)
[2023-06-24] MEDS ORDERED: PIPERACILLIN/TAZOBACTAM IV ONE (12:22)
[2023-06-24] MEDS: SODIUM BICARBONATE PO SCH ×2 (12:25→20:57)
[2023-06-24] MEDS: Lantus Insulin SQ SCH (20:54)
--- NOTE | 2023-06-25 05:02 | PCM.DS ---
Discharge Summary Date of Admission: 06/23/23 14:03 Date of Discharge: 06/25/23 Admitting Physician: HAROON PELITEZ MD Consults: Consults on Case 06/23/23 18:43 Consult Surgery ROUTINE Consult Surgery ROUTINE Primary Care Provider: ZIGGY RAMIREZ Allergies Allergies No Known Drug Allergies Allergy (Verified 06/23/23 12:03) Hospital Summary - Hospital Course Hospital Course: Patient admitted with left abdominal pain and left CVA pain. She has sharp aching pain that radiates to back. Pain is worse sitting and laying on right side. Relieved when laying on right side. She has had nausea and vomiting and some fever at home. No urinary complaints. She has insulin dependent diabetes and has been noncomplaint with her insulin. BS has been elevated on admission with a1c > 14. Patient states she has not been on her insulin for years. UA suggesting infection with gram negative organism treated with zosyn while hospitalized. She also has stones in gallbladder. Lipase is elevated suggesting pancreatitis but pancreatitis not seen on CT scan. GB US showing sludge/gravel. Surgery consulted, GB will need out as OP. Patient has been advised to follow up with endocrinology on discharge. She will be provided with diabetic supplies including glucometer, strips, lancets, and insulin. She is also advised to follow up with her PCP and surgery for her GB. Discharge Note New Diagnosis: New Medications: Follow Up: Results pending: Outpatient testing to order: Latest Assessment & Plan -CT showing abnormally distended gallbladder with tiny gallstones -abdominal US ordered -Surgery consult -NPO -Supportive care -Consider HIDA pending US results -Zosyn -Hold anticoagulation for now -Bcult pending 06/24: -US showing GB with gravel/sludge, negative for acute cholecystitis, will most likely follow up op for surgery (2) Elevated lipase Current Visit: Yes Status: Acute Assessment & Plan: -Abnormally distended gallbladder with tiny gallstones. Pancreas unremarkable -US abdomen pending -May be secondary to GB disease, will continue to trend 06/24: -Downtrending now at 533<620 Code(s): R74.8 - ABNORMAL LEVELS OF OTHER SERUM ENZYMES (3) Hypertension Current Visit: Yes Status: Acute Assessment & Plan: -Hydralazine prn 06/24 -Stable Code(s): I10 - ESSENTIAL (PRIMARY) HYPERTENSION (4) Hyperglycemia Current Visit: Yes Status: Acute Assessment & Plan: -ADA diet when able to resume -A1c >14 -Accuchecks -Patient non-compliant with home meds, referral to endo on discharge, will make sure she has supplies etc.. 06/24: -8 units lispro with meals, 20u glargine Code(s): R73.9 - HYPERGLYCEMIA, UNSPECIFIED (5) Urinary tract infection Current Visit: Yes Status: Acute Assessment & Plan: -UA mildly suspicious for UTI, will start zosyn, follow culture Code(s): N39.0 - URINARY TRACT INFECTION, SITE NOT SPECIFIED (6) Hyponatremia Current Visit: Yes Status: Acute Assessment & Plan: -Most likely secondary to hyperglycemia, will treat underlying cause and continue to monitor -IVF Code(s): E87.1 - HYPO-OSMOLALITY AND HYPONATREMIA (7) Transaminitis Current Visit: Yes Status: Acute Assessment & Plan: -Mildly elevated, will continue to trend 06/24: -Resolved Code(s): R74.01 - ELEVATION OF LEVELS OF LIVER TRANSAMINASE LEVELS #acidosis -Will start bicarb oral 650mg bid Additional CC's: ZIGGY RAMIREZ I spent 35 minutes [id number] with the patient on the day of discharge performing discharge exam, discussing hospital stay and discharge instructions with patient and caregivers, preparation of discharge records, prescriptions & referral forms and addressing any questions/concerns the patient had as documented above. - Vitals & Intake/Output Vital Signs: Vital Signs Temperature 97.4 F 06/25/23 03:54 Pulse Rate 84 06/25/23 03:54 Respiratory Rate 18 06/25/23 03:54 Blood Pressure 155/76 06/25/23 03:54 O2 Sat by Pulse Oximetry 99 06/25/23 03:54 Intake & Output: Intake & Output 06/22/23 06/23/23 06/24/23 06/25/23 11:59 11:59 11:59 11:59 Intake Total 1459 2100 Output Total 1100 2100 Balance 359 0 Weight 78.018 kg 80.6 kg - Lab Result Diagrams: 06/25/23 06:12 06/25/23 06:12 Lab Results-Last 24 Hrs: Lab Results-Last 24 Hours 06/24/23 06/24/23 06/24/23 Range/Units 04:57 04:57 04:57 WBC 7.3 (4.0-10.5) x10^3/uL RBC 4.03 L (4.1-5.4) x10^6/uL Hgb 11.9 L D (12.0-16.0) g/dL Hct 36.0 (35-47) % MCV 89.3 (78-100) fL MCH 29.5 (26-32) pg MCHC 33.1 (32-36) g/dL RDW 13.8 (11.5-14.0) % Plt Count 178 D (150-450) x10^3/uL MPV 9.9 (7.5-11.0) fL Sodium 133 L (137-145) mmol/L Potassium 4.1 (3.5-5.1) mmol/L Chloride 105 (98-107) mmol/L Carbon Dioxide 18 L (22-30) mmol/L Anion Gap 12.9 (5-15) MEQ/L BUN 14 (7-17) mg/dL Creatinine 0.55 (0.52-1.04) mg/dL Estimated GFR 112.3 ML/MIN Glucose 218 H (74-106) mg/dL POC Glucometer (74 to 106) mg/dL Calcium 7.8 L (8.4-10.2) mg/dL Total Bilirubin 0.60 (0.2-1.3) mg/dL AST 33 (14-36) U/L ALT 27 (0-35) U/L Alkaline Phosphatase 78 (38-126) U/L Serum Total Protein 6.2 L (6.3-8.2) g/dL Albumin 3.1 L (3.5-5.0) g/dL Lipase 533 H (23-300) U/L 06/24/23 06/24/23 06/24/23 Range/Units 07:11 11:52 16:30 WBC (4.0-10.5) x10^3/uL RBC (4.1-5.4) x10^6/uL Hgb (12.0-16.0) g/dL Hct (35-47) % MCV (78-100) fL MCH (26-32) pg MCHC (32-36) g/dL RDW (11.5-14.0) % Plt Count (150-450) x10^3/uL MPV (7.5-11.0) fL Sodium (137-145) mmol/L Potassium (3.5-5.1) mmol/L Chloride (98-107) mmol/L Carbon Dioxide (22-30) mmol/L Anion Gap (5-15) MEQ/L BUN (7-17) mg/dL Creatinine (0.52-1.04) mg/dL Estimated GFR ML/MIN Glucose (74-106) mg/dL POC Glucometer 203 H 245 H 193 H (74 to 106) mg/dL Calcium (8.4-10.2) mg/dL Total Bilirubin (0.2-1.3) mg/dL AST (14-36) U/L ALT (0-35) U/L Alkaline Phosphatase (38-126) U/L Serum Total Protein (6.3-8.2) g/dL Albumin (3.5-5.0) g/dL Lipase (23-300) U/L 06/24/23 06/24/23 Range/Units 20:22 20:23 WBC (4.0-10.5) x10^3/uL RBC (4.1-5.4) x10^6/uL Hgb (12.0-16.0) g/dL Hct (35-47) % MCV (78-100) fL MCH (26-32) pg MCHC (32-36) g/dL RDW (11.5-14.0) % Plt Count (150-450) x10^3/uL MPV (7.5-11.0) fL Sodium (137-145) mmol/L Potassium (3.5-5.1) mmol/L Chloride (98-107) mmol/L Carbon Dioxide (22-30) mmol/L Anion Gap (5-15) MEQ/L BUN (7-17) mg/dL Creatinine (0.52-1.04) mg/dL Estimated GFR ML/MIN Glucose (74-106) mg/dL POC Glucometer 325 H 283 H (74 to 106) mg/dL Calcium (8.4-10.2) mg/dL Total Bilirubin (0.2-1.3) mg/dL AST (14-36) U/L ALT (0-35) U/L Alkaline Phosphatase (38-126) U/L Serum Total Protein (6.3-8.2) g/dL Albumin (3.5-5.0) g/dL Lipase (23-300) U/L Micro Results-Entire Visit: Microbiology 06/23/23 12:03 Urine Culture - Preliminary Clean Catch Midstream GRAM NEGATIVE ID AND SENSITIVITY PENDING Accuchecks Date 06/24/23 Date 06/24/23 Date 06/24/23 Time 16:36 Time 12:25 Time 07:41 - Radiology Exams Ordered Rad Exams-Entire Visit: Radiology Procedures Category Date Time Status ABDOMEN AND PELVIS W/0 CONTRAS [CT] Stat Exams 06/23/23 11:56 Completed US ABDOMEN LIMITED [ABDOMINAL-LIMITED] [US] Stat Exams 06/23/23 15:44 Completed Final Diagnosis/Problem List - Final Discharge Diagnosis/Problem (1) Cholelithiasis Current Visit: Yes Status: Acute (2) Elevated lipase Current Visit: Yes Status: Acute Code(s): R74.8 - ABNORMAL LEVELS OF OTHER SERUM ENZYMES (3) Hypertension Current Visit: Yes Status: Acute Code(s): I10 - ESSENTIAL (PRIMARY) HYPERTENSION (4) Hyperglycemia Current Visit: Yes Status: Acute Code(s): R73.9 - HYPERGLYCEMIA, UNSPECIFIED (5) Urinary tract infection Current Visit: Yes Status: Acute Code(s): N39.0 - URINARY TRACT INFECTION, SITE NOT SPECIFIED (6) Hyponatremia Current Visit: Yes Status: Acute Code(s): E87.1 - HYPO-OSMOLALITY AND HYPONATREMIA (7) Transaminitis Current Visit: Yes Status: Acute Code(s): R74.01 - ELEVATION OF LEVELS OF LIVER TRANSAMINASE LEVELS (8) Leukocytosis Current Visit: Yes Status: Acute Code(s): D72.829 - ELEVATED WHITE BLOOD CELL COUNT, UNSPECIFIED (9) Metabolic acidosis Current Visit: Yes Status: Acute Code(s): E87.20 - ACIDOSIS, UNSPECIFIED - Discharge Disposition: Home, Self-Care Condition: Stable Prescriptions: No Action Rivaroxaban 10 mg Tablet [Xarelto 10 mg Tablet] 10 mg PO DAILY Gabapentin [Neurontin ] 100 mg PO BID Mv,Calcium,Min/Iron/Folic/Vitk [Multi For Her Tablet] 1 tab PO DAILY Cyanocobalamin (Vitamin B-12) [Vitamin B-12] 1,000 mcg PO DAILY Cholecalciferol (Vitamin D3) [Vitamin D3] 500 mcg PO DAILY Follow up with: ZIGGY RAMIREZ MD [Primary Care Provider] -
[2023-06-25] MEDS: PIPERACILLIN/TAZOBACTAM 3.375 GM in Sodium Chloride 100ML MINI-BAG PLUS 100 ML IV SCH ×4 (05:04→23:16)
[2023-06-25 06:21] LABS: Hematocrit 34.8 % (35-47); Mean Cell Volume 86.8 fL (78-100); Mean Corpuscular Hemoglobin 29.9 pg (26-32); Mean Corpuscular Hgb Concent. 34.5 g/dL (32-36); Mean Platelet Volume 9.7 fL (7.5-11.0); Platelet Count 171 x10^3/uL (150-450); Red Blood Count 4.01 x10^6/uL (4.1-5.4); Red Cell Distribution Width 13.8 % (11.5-14.0); White Blood Count 6.2 x10^3/uL (4.0-10.5)
[2023-06-25 06:44] LABS: ALBUMIN 3.1 g/dL (3.5-5.0); ANION GAP 6.8 MEQ/L (5-15); BILIRUBIN,TOTAL 0.4 mg/dL (0.2-1.3); Calcium 8.1 mg/dL (8.4-10.2); Creatinine 1 0.51 mg/dL (0.52-1.04); EST GLOMERULAR FILTRATION RATE 114.4 ML/MIN; Potassium 3.9 mmol/L (3.5-5.1); Total Protein 6.2 g/dL (6.3-8.2)
[2023-06-25] MEDS ORDERED: HUMALOG SQ SCH (07:10)
[2023-06-25] MEDS ORDERED: HUMULIN R SQ PRN (07:13)
[2023-06-25] MEDS ORDERED: HUMALOG SQ PRN (08:16)
[2023-06-25] MEDS: HUMALOG SQ SCH ×2 (08:31→12:21)
[2023-06-25] MEDS: SODIUM BICARBONATE PO SCH (09:08)
[2023-06-25] MEDS: Sodium Chloride 0.9% 1000 ML 1,000 ML IV SCH ×2 (09:12→20:10)
[2023-06-25] MEDS: HUMALOG SQ PRN (12:06)
[2023-06-25] MEDS ORDERED: MEDICATION INTERVENTION MC SCH (12:45)
[2023-06-25] MEDS: MORPHINE SULFATE 2 MG INJ IV PRN (13:56)
[2023-06-25] MEDS: Zofran 4 MG/2 ML VIAL IV PRN (13:56)
[2023-06-25] MEDS: Vitamin B-12 500 MCG PO SCH (13:57)
[2023-06-25] MEDS: Neurontin PO SCH ×2 (13:57→21:11)
[2023-06-25] MEDS: THERAGRAN MULTIVITAMIN PO SCH (13:57)
--- NOTE | 2023-06-25 13:57 | PCM.NOTE ---
Date and Time: 06/25/23 7365 Subjective Assessment: HPI: Patient admitted with left abdominal pain and left CVA pain. She has sharp aching pain that radiates to back. Pain is worse sitting and laying on right side. Relieved when laying on right side. She has had nausea and vomiting and some fever at home. No urinary complaints. She has insulin dependent diabetes and has been noncomplaint with her insulin. BS is quite high on admission. Restart insulin therapy. She has abnormal UA suggesting infection. She also has stones in gallbladder. Lipase is elevated suggesting pancreatitis but pancreatitis not seen on CT scan. GB US showing sludge/gravel. Surgery consulted, GB will need out at some point, most likely as OP. 06/24: Met with patient bedside. Endorses improvement of abdominal pain, still with some nausea. Diet advanced to FLD. Long discussion had regarding glycemic control. A1c > 14. Will need to send home with diabetic supplies (glucometer, lancets, strips, syringes, etc). Patient responding well to current insulin regimen of 8 units with meals, and long acting 20 units. Denies fever,cough, sob, cp, CRUMP, dizziness, V/D. 06/25: Patient states she is having 5/10 RUQ pain with radiation to her back with some nausea this morning following breakfast. We will reach back out to surgery to see if they can re-evaluate her for possible cholecystecomy. It is unclear whether this pain is related to her GB or possible pancreatitis although imaging shows no evidence. Urine culture with ecoli, patient is receiving zosyn. She denies any hematuria, dysuria, frequency, or burning. - Review of Systems Constitutional: No Symptoms Eyes: No Symptoms Ears, Nose, & Throat: No Symptoms Respiratory: No Symptoms Cardiac: No Symptoms Abdominal/Gastrointestinal: Abdominal Pain, Nausea Genitourinary Symptoms: No Symptoms Musculoskeletal: No Symptoms Skin: No Symptoms Neurological: No Symptoms Psychological: No Symptoms Endocrine: No Symptoms Objective Exam General Appearance: no apparent distress Neurologic Exam: alert, oriented x 3, cooperative Skin Exam: normal color Eye Exam: PERRL Ears, Nose, Throat Exam: normal ENT inspection Neck Exam: normal inspection Respiratory Exam: normal breath sounds, lungs clear Cardiovascular Exam: regular rate/rhythm, normal heart sounds Gastrointestinal/Abdomen Exam: soft, normal bowel sounds, tenderness (RUQ/Flank) Extremity Exam: normal inspection Back Exam: normal inspection OBJECTIVE DATA Vital Signs: Vital Signs - 24 hr Temp Pulse Resp BP Pulse Ox 06/25/23 11:44 98.6 F 75 16 124/66 98 06/25/23 07:21 96.7 F 75 16 147/70 99 06/25/23 03:54 97.4 F 84 18 155/76 99 06/24/23 23:56 98.3 F 82 20 145/73 98 06/24/23 20:00 97.7 F 91 H 16 129/60 97 06/24/23 16:00 98.3 F 78 16 135/73 94 L Pain Assessment - Last Documented Pain Intensity 5 Pain Scale Used 0-10 Pain Scale Intake and Output: Intake & Output 06/23/23 06/24/23 06/25/23 06/26/23 11:59 11:59 11:59 11:59 Intake Total 1459 2340 240 Output Total 1100 2100 Balance 359 240 240 Weight 78.018 kg 80.6 kg Lab Results: Lab Results-Last 24 Hours 06/23/23 06/24/23 06/24/23 Range/Units 12:03 16:30 20:22 WBC (4.0-10.5) x10^3/uL RBC (4.1-5.4) x10^6/uL Hgb (12.0-16.0) g/dL Hct (35-47) % MCV (78-100) fL MCH (26-32) pg MCHC (32-36) g/dL RDW (11.5-14.0) % Plt Count (150-450) x10^3/uL MPV (7.5-11.0) fL Sodium (137-145) mmol/L Potassium (3.5-5.1) mmol/L Chloride (98-107) mmol/L Carbon Dioxide (22-30) mmol/L Anion Gap (5-15) MEQ/L BUN (7-17) mg/dL Creatinine (0.52-1.04) mg/dL Estimated GFR ML/MIN Glucose (74-106) mg/dL POC Glucometer 193 H 325 H (74 to 106) mg/dL Calcium (8.4-10.2) mg/dL Total Bilirubin (0.2-1.3) mg/dL AST (14-36) U/L ALT (0-35) U/L Alkaline Phosphatase (38-126) U/L Serum Total Protein (6.3-8.2) g/dL Albumin (3.5-5.0) g/dL Lipase (23-300) U/L Urine Opiates Level POSITIVE A (NEGATIVE) Ur Methadone NEGATIVE (NEGATIVE) Urine Barbiturates NEGATIVE (NEGATIVE) Ur Phencyclidine (PCP) NEGATIVE (NEGATIVE) Urine Amphetamine NEGATIVE (NEGATIVE) U Benzodiazepine Level NEGATIVE (NEGATIVE) Urine Cocaine NEGATIVE (NEGATIVE) Urine Marijuana (THC) NEGATIVE (NEGATIVE) 06/24/23 06/25/23 06/25/23 Range/Units 20:23 06:12 06:12 WBC 6.2 (4.0-10.5) x10^3/uL RBC 4.01 L (4.1-5.4) x10^6/uL Hgb 12.0 (12.0-16.0) g/dL Hct 34.8 L (35-47) % MCV 86.8 (78-100) fL MCH 29.9 (26-32) pg MCHC 34.5 (32-36) g/dL RDW 13.8 (11.5-14.0) % Plt Count 171 (150-450) x10^3/uL MPV 9.7 (7.5-11.0) fL Sodium 136 L (137-145) mmol/L Potassium 3.9 (3.5-5.1) mmol/L Chloride 109 H (98-107) mmol/L Carbon Dioxide 23 (22-30) mmol/L Anion Gap 6.8 (5-15) MEQ/L BUN 11 (7-17) mg/dL Creatinine 0.51 L (0.52-1.04) mg/dL Estimated GFR 114.4 ML/MIN Glucose 284 H (74-106) mg/dL POC Glucometer 283 H (74 to 106) mg/dL Calcium 8.1 L (8.4-10.2) mg/dL Total Bilirubin 0.40 (0.2-1.3) mg/dL AST 33 (14-36) U/L ALT 28 (0-35) U/L Alkaline Phosphatase 99 (38-126) U/L Serum Total Protein 6.2 L (6.3-8.2) g/dL Albumin 3.1 L (3.5-5.0) g/dL Lipase (23-300) U/L Urine Opiates Level (NEGATIVE) Ur Methadone (NEGATIVE) Urine Barbiturates (NEGATIVE) Ur Phencyclidine (PCP) (NEGATIVE) Urine Amphetamine (NEGATIVE) U Benzodiazepine Level (NEGATIVE) Urine Cocaine (NEGATIVE) Urine Marijuana (THC) (NEGATIVE) 06/25/23 06/25/23 06/25/23 Range/Units 06:12 06:56 11:33 WBC (4.0-10.5) x10^3/uL RBC (4.1-5.4) x10^6/uL Hgb (12.0-16.0) g/dL Hct (35-47) % MCV (78-100) fL MCH (26-32) pg MCHC (32-36) g/dL RDW (11.5-14.0) % Plt Count (150-450) x10^3/uL MPV (7.5-11.0) fL Sodium (137-145) mmol/L Potassium (3.5-5.1) mmol/L Chloride (98-107) mmol/L Carbon Dioxide (22-30) mmol/L Anion Gap (5-15) MEQ/L BUN (7-17) mg/dL Creatinine (0.52-1.04) mg/dL Estimated GFR ML/MIN Glucose (74-106) mg/dL POC Glucometer 263 H 215 H (74 to 106) mg/dL Calcium (8.4-10.2) mg/dL Total Bilirubin (0.2-1.3) mg/dL AST (14-36) U/L ALT (0-35) U/L Alkaline Phosphatase (38-126) U/L Serum Total Protein (6.3-8.2) g/dL Albumin (3.5-5.0) g/dL Lipase 616 H (23-300) U/L Urine Opiates Level (NEGATIVE) Ur Methadone (NEGATIVE) Urine Barbiturates (NEGATIVE) Ur Phencyclidine (PCP) (NEGATIVE) Urine Amphetamine (NEGATIVE) U Benzodiazepine Level (NEGATIVE) Urine Cocaine (NEGATIVE) Urine Marijuana (THC) (NEGATIVE) Radiology Exams: Radiology Procedures Category Date Time Status US ABDOMEN LIMITED [ABDOMINAL-LIMITED] [US] Stat Exams 06/23/23 15:44 Completed Multi-Disciplinary Progress Notes: Multi-Disciplinary Progress Notes 06/25/23 10:47 Case Management Note by Sima Horner CALLED PATIENT INSURANCE [facility] TO GET PLAN OVERIDE TO OBTAIN ADDITIONAL TEST STRIPS FOR PATIENT. SPOKE WITH [employer] IN [facility] [place]. [facility] CASE #[id number] APPROVED FOR 100 STRIPS FOR 25 DAYS FROM 06/25/23 TO 07/05/24. Initialized on 06/25/23 10:47 - END OF NOTE 06/25/23 10:10 Case Management Note by Lizy Rodriguez S/Huong PATIENT- SHE CONTINUES TO DENY ANY NEW NEEDS AT TIME OF DC. SHE PLANS TO RETURN HOME TO HER PLF AT TIME OF DC Initialized on 06/25/23 10:10 - END OF NOTE 06/25/23 10:03 Case Management Note by Lizy Rodriguez/Huong E [employer]- PATIENT TO CHECK HER BLOOD SUGARS ACHS AT HOME. PER INSTRUCTION- ORDERS FOR NEW GLUCOMETER, TEST STRIPS AND LANCETS CALLED INTO [facility] Initialized on 06/25/23 10:03 - END OF NOTE Assessment/Plan (1) Cholelithiasis Current Visit: Yes Status: Acute Assessment & Plan: -CT showing abnormally distended gallbladder with tiny gallstones -abdominal US ordered -Surgery consult -NPO -Supportive care -Consider HIDA pending US results -Zosyn -Hold anticoagulation for now -Bcult pending 06/24: -US showing GB with gravel/sludge, negative for acute cholecystitis, will most likely follow up op for surgery 06/25: -Surgery consulted for re-evaluation for cholecystectomy -Continue zosyn/supportive care -CLD (2) Elevated lipase Current Visit: Yes Status: Acute Assessment & Plan: -Abnormally distended gallbladder with tiny gallstones. Pancreas unremarkable -US abdomen pending -May be secondary to GB disease, will continue to trend 06/24: -Downtrending now at 533<620 06/25: remains elevated Code(s): R74.8 - ABNORMAL LEVELS OF OTHER SERUM ENZYMES (3) Hypertension Current Visit: Yes Status: Acute Assessment & Plan: -Hydralazine prn 06/24 -Stable Code(s): I10 - ESSENTIAL (PRIMARY) HYPERTENSION (4) Hyperglycemia Current Visit: Yes Status: Acute Assessment & Plan: -ADA diet when able to resume -A1c >14 -Accuchecks -Patient non-compliant with home meds, referral to endo on discharge, will make sure she has supplies etc.. 06/24: -8 units lispro with meals, 20u glargine 06/25: -increase lispro to 10u with meals Code(s): R73.9 - HYPERGLYCEMIA, UNSPECIFIED (5) Urinary tract infection Current Visit: Yes Status: Acute Assessment & Plan: -UA mildly suspicious for UTI, will start zosyn, follow culture 06/25: -ucult with ecoli, will continue zosyn for now Code(s): N39.0 - URINARY TRACT INFECTION, SITE NOT SPECIFIED (6) Hyponatremia Current Visit: Yes Status: Acute Assessment & Plan: -Most likely secondary to hyperglycemia, will treat underlying cause and continue to monitor -IVF 06/25: -resolving Code(s): E87.1 - HYPO-OSMOLALITY AND HYPONATREMIA (7) Transaminitis Current Visit: Yes Status: Acute Assessment & Plan: -Mildly elevated, will continue to trend 06/24: -Resolved Code(s): R74.01 - ELEVATION OF LEVELS OF LIVER TRANSAMINASE LEVELS #acidosis -Will start bicarb oral 650mg bid 06/25: -Resolved, d/c bicarb Additional CC's: ZIGGY RAMIREZ (2) Elevated lipase Current Visit: Yes Status: Acute Code(s): R74.8 - ABNORMAL LEVELS OF OTHER SERUM ENZYMES (3) Hypertension Current Visit: Yes Status: Acute Code(s): I10 - ESSENTIAL (PRIMARY) HYPERTENSION (4) Hyperglycemia Current Visit: Yes Status: Acute Code(s): R73.9 - HYPERGLYCEMIA, UNSPECIFIED (5) Urinary tract infection Current Visit: Yes Status: Acute Code(s): N39.0 - URINARY TRACT INFECTION, SITE NOT SPECIFIED (6) Hyponatremia Current Visit: Yes Status: Acute Code(s): E87.1 - HYPO-OSMOLALITY AND HYPONATREMIA (7) Transaminitis Current Visit: Yes Status: Acute Code(s): R74.01 - ELEVATION OF LEVELS OF LIVER TRANSAMINASE LEVELS (8) Leukocytosis Current Visit: Yes Status: Acute Code(s): D72.829 - ELEVATED WHITE BLOOD CELL COUNT, UNSPECIFIED (9) Metabolic acidosis Current Visit: Yes Status: Acute Code(s): E87.20 - ACIDOSIS, UNSPECIFIED
[2023-06-25] MEDS: Lantus Insulin SQ SCH (21:11)
[2023-06-26] MEDS: MORPHINE SULFATE 2 MG INJ IV PRN (03:11)
[2023-06-26 04:59] LABS: Hematocrit 33.1 % (35-47); Hemoglobin 11.2 g/dL (12.0-16.0); Mean Cell Volume 87.6 fL (78-100); Mean Corpuscular Hemoglobin 29.6 pg (26-32); Mean Corpuscular Hgb Concent. 33.8 g/dL (32-36); Mean Platelet Volume 10.1 fL (7.5-11.0); Platelet Count 182 x10^3/uL (150-450); Red Blood Count 3.78 x10^6/uL (4.1-5.4); Red Cell Distribution Width 13.8 % (11.5-14.0); White Blood Count 5.7 x10^3/uL (4.0-10.5)
--- NOTE | 2023-06-26 05:06 | PCM.NOTE ---
Date and Time: 06/26/23 0506 Subjective Assessment: HPI: Patient admitted with left abdominal pain and left CVA pain. She has sharp aching pain that radiates to back. Pain is worse sitting and laying on right side. Relieved when laying on right side. She has had nausea and vomiting and some fever at home. No urinary complaints. She has insulin dependent diabetes and has been noncomplaint with her insulin. BS is quite high on admission. Restart insulin therapy. She has abnormal UA suggesting infection. She also has stones in gallbladder. Lipase is elevated suggesting pancreatitis but pancreatitis not seen on CT scan. GB US showing sludge/gravel. Surgery consulted, GB will need out at some point, most likely as OP. 06/24: Met with patient bedside. Endorses improvement of abdominal pain, still with some nausea. Diet advanced to FLD. Long discussion had regarding glycemic control. A1c > 14. Will need to send home with diabetic supplies (glucometer, lancets, strips, syringes, etc). Patient responding well to current insulin regimen of 8 units with meals, and long acting 20 units. Denies fever,cough, sob, cp, CRUMP, dizziness, V/D. 06/25: Patient states she is having 5/10 RUQ pain with radiation to her back with some nausea this morning following breakfast. We will reach back out to surgery to see if they can re-evaluate her for possible cholecystecomy. It is unclear whether this pain is related to her GB or possible pancreatitis although imaging shows no evidence. Urine culture with ecoli, patient is receiving zosyn. She denies any hematuria, dysuria, frequency, or burning. OBJECTIVE DATA Vital Signs: Vital Signs - 24 hr Temp Pulse Resp BP Pulse Ox 06/26/23 03:59 97.9 F 75 16 166/80 98 06/25/23 23:46 97.5 F 72 18 162/74 96 06/25/23 19:55 97.9 F 70 16 151/75 98 06/25/23 16:00 97.5 F 76 16 136/68 98 06/25/23 11:44 98.6 F 75 16 124/66 98 06/25/23 07:21 96.7 F 75 16 147/70 99 Pain Assessment - Last Documented Pain Intensity 2 Pain Scale Used 0-10 Pain Scale Intake and Output: Intake & Output 06/23/23 06/24/23 06/25/23/14/23 11:59 11:59 11:59 11:59 Intake Total 9404 8790 4764 Output Total 1100 2100 2600 Balance 882 832 5487 Weight 78.018 kg 80.6 kg Lab Results: Lab Results-Last 24 Hours 06/23/23 06/25/23 06/25/23 Range/Units 12:03 06:12 06:12 WBC 6.2 (4.0-10.5) x10^3/uL RBC 4.01 L (4.1-5.4) x10^6/uL Hgb 12.0 (12.0-16.0) g/dL Hct 34.8 L (35-47) % MCV 86.8 (78-100) fL MCH 29.9 (26-32) pg MCHC 34.5 (32-36) g/dL RDW 13.8 (11.5-14.0) % Plt Count 171 (150-450) x10^3/uL MPV 9.7 (7.5-11.0) fL Sodium 136 L (137-145) mmol/L Potassium 3.9 (3.5-5.1) mmol/L Chloride 109 H (98-107) mmol/L Carbon Dioxide 23 (22-30) mmol/L Anion Gap 6.8 (5-15) MEQ/L BUN 11 (7-17) mg/dL Creatinine 0.51 L (0.52-1.04) mg/dL Estimated GFR 114.4 ML/MIN Glucose 284 H (74-106) mg/dL POC Glucometer (74 to 106) mg/dL Calcium 8.1 L (8.4-10.2) mg/dL Total Bilirubin 0.40 (0.2-1.3) mg/dL AST 33 (14-36) U/L ALT 28 (0-35) U/L Alkaline Phosphatase 99 (38-126) U/L Serum Total Protein 6.2 L (6.3-8.2) g/dL Albumin 3.1 L (3.5-5.0) g/dL Lipase (23-300) U/L Urine Opiates Level POSITIVE A (NEGATIVE) Ur Methadone NEGATIVE (NEGATIVE) Urine Barbiturates NEGATIVE (NEGATIVE) Ur Phencyclidine (PCP) NEGATIVE (NEGATIVE) Urine Amphetamine NEGATIVE (NEGATIVE) U Benzodiazepine Level NEGATIVE (NEGATIVE) Urine Cocaine NEGATIVE (NEGATIVE) Urine Marijuana (THC) NEGATIVE (NEGATIVE) 06/25/23 06/25/23 06/25/23 Range/Units 06:12 06:56 11:33 WBC (4.0-10.5) x10^3/uL RBC (4.1-5.4) x10^6/uL Hgb (12.0-16.0) g/dL Hct (35-47) % MCV (78-100) fL MCH (26-32) pg MCHC (32-36) g/dL RDW (11.5-14.0) % Plt Count (150-450) x10^3/uL MPV (7.5-11.0) fL Sodium (137-145) mmol/L Potassium (3.5-5.1) mmol/L Chloride (98-107) mmol/L Carbon Dioxide (22-30) mmol/L Anion Gap (5-15) MEQ/L BUN (7-17) mg/dL Creatinine (0.52-1.04) mg/dL Estimated GFR ML/MIN Glucose (74-106) mg/dL POC Glucometer 263 H 215 H (74 to 106) mg/dL Calcium (8.4-10.2) mg/dL Total Bilirubin (0.2-1.3) mg/dL AST (14-36) U/L ALT (0-35) U/L Alkaline Phosphatase (38-126) U/L Serum Total Protein (6.3-8.2) g/dL Albumin (3.5-5.0) g/dL Lipase 616 H (23-300) U/L Urine Opiates Level (NEGATIVE) Ur Methadone (NEGATIVE) Urine Barbiturates (NEGATIVE) Ur Phencyclidine (PCP) (NEGATIVE) Urine Amphetamine (NEGATIVE) U Benzodiazepine Level (NEGATIVE) Urine Cocaine (NEGATIVE) Urine Marijuana (THC) (NEGATIVE) 06/25/23 06/25/23 Range/Units 15:56 20:44 WBC (4.0-10.5) x10^3/uL RBC (4.1-5.4) x10^6/uL Hgb (12.0-16.0) g/dL Hct (35-47) % MCV (78-100) fL MCH (26-32) pg MCHC (32-36) g/dL RDW (11.5-14.0) % Plt Count (150-450) x10^3/uL MPV (7.5-11.0) fL Sodium (137-145) mmol/L Potassium (3.5-5.1) mmol/L Chloride (98-107) mmol/L Carbon Dioxide (22-30) mmol/L Anion Gap (5-15) MEQ/L BUN (7-17) mg/dL Creatinine (0.52-1.04) mg/dL Estimated GFR ML/MIN Glucose (74-106) mg/dL POC Glucometer 198 H 235 H (74 to 106) mg/dL Calcium (8.4-10.2) mg/dL Total Bilirubin (0.2-1.3) mg/dL AST (14-36) U/L ALT (0-35) U/L Alkaline Phosphatase (38-126) U/L Serum Total Protein (6.3-8.2) g/dL Albumin (3.5-5.0) g/dL Lipase (23-300) U/L Urine Opiates Level (NEGATIVE) Ur Methadone (NEGATIVE) Urine Barbiturates (NEGATIVE) Ur Phencyclidine (PCP) (NEGATIVE) Urine Amphetamine (NEGATIVE) U Benzodiazepine Level (NEGATIVE) Urine Cocaine (NEGATIVE) Urine Marijuana (THC) (NEGATIVE) Multi-Disciplinary Progress Notes: Multi-Disciplinary Progress Notes 06/25/23 10:47 Case Management Note by Sima Horner CALLED PATIENT INSURANCE [facility] TO GET PLAN OVERIDE TO OBTAIN ADDITIONAL TEST STRIPS FOR PATIENT. SPOKE WITH STACEY IN [facility]. DEPT. [facility]. CASE #[id number] APPROVED FOR 100 STRIPS FOR 25 DAYS FROM 06/25/23 TO 07/05/24. Initialized on 06/25/23 10:47 - END OF NOTE 06/25/23 10:10 Case Management Note by Lizy Rodriguez/Huong PATIENT- SHE CONTINUES TO DENY ANY NEW NEEDS AT TIME OF DC. SHE PLANS TO RETURN HOME TO HER PLF AT TIME OF DC Initialized on 06/25/23 10:10 - END OF NOTE 06/25/23 10:03 Case Management Note by Lizy Rodriguez/Huong E JUANIS CHILD STUDY TEAM DIRECTOR- PATIENT TO CHECK HER BLOOD SUGARS ACHS AT HOME. PER INSTRUCTION- ORDERS FOR NEW GLUCOMETER, TEST [facility] Initialized on 06/25/23 10:03 - END OF NOTE Assessment/Plan (1) Cholelithiasis Current Visit: Yes Status: Acute Assessment & Plan: (1) Cholelithiasis Current Visit: Yes Status: Acute Assessment & Plan: -CT showing abnormally distended gallbladder with tiny gallstones -abdominal US ordered -Surgery consult -NPO -Supportive care -Consider HIDA pending US results -Zosyn -Hold anticoagulation for now -Bcult pending 06/24: -US showing GB with gravel/sludge, negative for acute cholecystitis, will most likely follow up op for surgery 06/25: -Surgery consulted for re-evaluation for cholecystectomy -Continue zosyn/supportive care -CLD (2) Elevated lipase Current Visit: Yes Status: Acute Assessment & Plan: -Abnormally distended gallbladder with tiny gallstones. Pancreas unremarkable -US abdomen pending -May be secondary to GB disease, will continue to trend 06/24: -Downtrending now at 533<620 06/25: remains elevated Code(s): R74.8 - ABNORMAL LEVELS OF OTHER SERUM ENZYMES (3) Hypertension Current Visit: Yes Status: Acute Assessment & Plan: -Hydralazine prn 06/24 -Stable Code(s): I10 - ESSENTIAL (PRIMARY) HYPERTENSION (4) Hyperglycemia Current Visit: Yes Status: Acute Assessment & Plan: -ADA diet when able to resume -A1c >14 -Accuchecks -Patient non-compliant with home meds, referral to endo on discharge, will make sure she has supplies etc.. 06/24: -8 units lispro with meals, 20u glargine 06/25: -increase lispro to 10u with meals Code(s): R73.9 - HYPERGLYCEMIA, UNSPECIFIED (5) Urinary tract infection Current Visit: Yes Status: Acute Assessment & Plan: -UA mildly suspicious for UTI, will start zosyn, follow culture 06/25: -ucult with ecoli, will continue zosyn for now Code(s): N39.0 - URINARY TRACT INFECTION, SITE NOT SPECIFIED (6) Hyponatremia Current Visit: Yes Status: Acute Assessment & Plan: -Most likely secondary to hyperglycemia, will treat underlying cause and continue to monitor -IVF 06/25: -resolving Code(s): E87.1 - HYPO-OSMOLALITY AND HYPONATREMIA (7) Transaminitis Current Visit: Yes Status: Acute Assessment & Plan: -Mildly elevated, will continue to trend 06/24: -Resolved Code(s): R74.01 - ELEVATION OF LEVELS OF LIVER TRANSAMINASE LEVELS #acidosis -Will start bicarb oral 650mg bid 06/25: -Resolved, d/c bicarb Additional CC's: ZIGGY RAMIREZ (2) Elevated lipase Current Visit: Yes Status: Acute Code(s): R74.8 - ABNORMAL LEVELS OF OTHER SERUM ENZYMES (3) Hypertension Current Visit: Yes Status: Acute Code(s): I10 - ESSENTIAL (PRIMARY) HYPERTENSION (4) Hyperglycemia Current Visit: Yes Status: Acute Code(s): R73.9 - HYPERGLYCEMIA, UNSPECIFIED (5) Urinary tract infection Current Visit: Yes Status: Acute Code(s): N39.0 - URINARY TRACT INFECTION, SITE NOT SPECIFIED (6) Hyponatremia Current Visit: Yes Status: Acute Code(s): E87.1 - HYPO-OSMOLALITY AND HYPONATREMIA (7) Transaminitis Current Visit: Yes Status: Acute Code(s): R74.01 - ELEVATION OF LEVELS OF LIVER TRANSAMINASE LEVELS (8) Leukocytosis Current Visit: Yes Status: Acute Code(s): D72.829 - ELEVATED WHITE BLOOD CELL COUNT, UNSPECIFIED (9) Metabolic acidosis Current Visit: Yes Status: Acute Code(s): E87.20 - ACIDOSIS, UNSPECIFIED
[2023-06-26 05:26] LABS: ALBUMIN 2.8 g/dL (3.5-5.0); ANION GAP 6.9 MEQ/L (5-15); BILIRUBIN,TOTAL 0.4 mg/dL (0.2-1.3); Creatinine 1 0.42 mg/dL (0.52-1.04); EST GLOMERULAR FILTRATION RATE 119.8 ML/MIN; Potassium 3.7 mmol/L (3.5-5.1); Total Protein 5.9 g/dL (6.3-8.2)
[2023-06-26] MEDS: Sodium Chloride 0.9% 1000 ML 1,000 ML IV SCH (05:31)
[2023-06-26] MEDS: PIPERACILLIN/TAZOBACTAM 3.375 GM in Sodium Chloride 100ML MINI-BAG PLUS 100 ML IV SCH ×2 (05:31→11:45)
[2023-06-26 06:51] VITALS: O2SAT 96
[2023-06-26] MEDS: HUMALOG SQ SCH ×2 (09:02→12:18)
[2023-06-26] MEDS: Neurontin PO SCH (09:07)
[2023-06-26] MEDS: THERAGRAN MULTIVITAMIN PO SCH (09:08)
[2023-06-26] MEDS: Vitamin B-12 500 MCG PO SCH (09:08)
[2023-06-26] MEDS ORDERED: CHOLECALCIFEROL 250 MCG PO SCH (10:00)
--- NOTE | 2023-06-26 11:05 | PCM.DS ---
Discharge Summary Date of Admission: 06/23/23 14:03 Date of Discharge: 06/26/23 Admitting Physician: HAROON PLEITEZ MD Consults: Consults on Case 06/23/23 18:43 Consult Surgery ROUTINE Consult Surgery ROUTINE Primary Care Provider: ZIGGY RAMIREZ Allergies Allergies No Known Drug Allergies Allergy (Verified 06/23/23 12:03) Hospital Summary - Hospital Course Hospital Course: Patient admitted with left abdominal pain and left CVA pain. She has insulin dependent diabetes and has been noncomplaint with her insulin. BS is quite high on admission. She has abnormal UA suggesting infection, culture showing ecoli, she will be dismissed on Cefdinir for an additional 5 days. She also has stones in gallbladder. Lipase is elevated suggesting pancreatitis but pancreatitis not seen on CT scan. GB US showing sludge/gravel. Surgery consulted, GB will need out at some point as OP once she is feeling better and blood glucose levels are stable. Abdominal pain has improved. Blood glucose levels improving with current insulin regimen. Discussed the importance of good glycemic control and the importance of compliance with medication regimen as well as follow up with endocrinology. Patient also advised follow up with surgery and PCP. Discharge Note New Diagnosis: Cholelithiasis/ hyperglycemia New Medications: Cefdinir/lispro insulin/glargine Follow Up: pcp/surg/ endocrinology Latest Assessment & Plan (1) Cholelithiasis Current Visit: Yes Status: Acute Assessment & Plan: -CT showing abnormally distended gallbladder with tiny gallstones -abdominal US ordered -Surgery consult -NPO -Supportive care -Consider HIDA pending US results -Zosyn -Hold anticoagulation for now -Bcult pending 06/24: -US showing GB with gravel/sludge, negative for acute cholecystitis, will most likely follow up op for surgery 06/25: -Surgery consulted for re-evaluation for cholecystectomy -Continue zosyn/supportive care -CLD (2) Elevated lipase Current Visit: Yes Status: Acute Assessment & Plan: -Abnormally distended gallbladder with tiny gallstones. Pancreas unremarkable -US abdomen pending -May be secondary to GB disease, will continue to trend 06/24: -Downtrending now at 533<620 06/25: remains elevated Code(s): R74.8 - ABNORMAL LEVELS OF OTHER SERUM ENZYMES (3) Hypertension Current Visit: Yes Status: Acute Assessment & Plan: -Hydralazine prn 06/24 -Stable Code(s): I10 - ESSENTIAL (PRIMARY) HYPERTENSION (4) Hyperglycemia Current Visit: Yes Status: Acute Assessment & Plan: -ADA diet when able to resume -A1c >14 -Accuchecks -Patient non-compliant with home meds, referral to endo on discharge, will make sure she has supplies etc.. 06/24: -8 units lispro with meals, 20u glargine 06/25: -increase lispro to 10u with meals (5) Urinary tract infection Current Visit: Yes Status: Acute Assessment & Plan: -UA mildly suspicious for UTI, will start zosyn, follow culture 06/25: -ucult with ecoli, will continue zosyn for now Code(s): N39.0 - URINARY TRACT INFECTION, SITE NOT SPECIFIED (6) Hyponatremia Current Visit: Yes Status: Acute Assessment & Plan: -Most likely secondary to hyperglycemia, will treat underlying cause and continue to monitor -IVF 06/25: -resolving Code(s): E87.1 - HYPO-OSMOLALITY AND HYPONATREMIA (7) Transaminitis Current Visit: Yes Status: Acute Assessment & Plan: -Mildly elevated, will continue to trend 06/24: -Resolved Code(s): R74.01 - ELEVATION OF LEVELS OF LIVER TRANSAMINASE LEVELS #acidosis -Will start bicarb oral 650mg bid 06/25: -Resolved, d/c bicarb I spent 35 minutes [id number] with the patient on the day of discharge performing discharge exam, discussing hospital stay and discharge instructions with patient and caregivers, preparation of discharge records, prescriptions & referral forms and addressing any questions/concerns the patient had as documented above. - Vitals & Intake/Output Vital Signs: Vital Signs Temperature 97.5 F 06/26/23 06:51 Pulse Rate 75 06/26/23 06:51 Respiratory Rate 16 06/26/23 06:51 Blood Pressure 145/77 06/26/23 06:51 O2 Sat by Pulse Oximetry 96 06/26/23 06:51 Intake & Output: Intake & Output 06/23/23 06/24/23 06/25/23 06/26/23 11:59 11:59 11:59 11:59 Intake Total 1459 2340 5004 Output Total 1100 2100 2600 Balance 216 352 3148 Weight 78.018 kg 80.6 kg - Lab Result Diagrams: 06/26/23 04:50 06/26/23 04:50 Lab Results-Last 24 Hrs: Lab Results-Last 24 Hours 06/25/23 06/25/23 06/25/23 Range/Units 11:33 15:56 20:44 WBC (4.0-10.5) x10^3/uL RBC (4.1-5.4) x10^6/uL Hgb (12.0-16.0) g/dL Hct (35-47) % MCV (78-100) fL MCH (26-32) pg MCHC (32-36) g/dL RDW (11.5-14.0) % Plt Count (150-450) x10^3/uL MPV (7.5-11.0) fL Sodium (137-145) mmol/L Potassium (3.5-5.1) mmol/L Chloride (98-107) mmol/L Carbon Dioxide (22-30) mmol/L Anion Gap (5-15) MEQ/L BUN (7-17) mg/dL Creatinine (0.52-1.04) mg/dL Estimated GFR ML/MIN Glucose (74-106) mg/dL POC Glucometer 215 H 198 H 235 H (74 to 106) mg/dL Calcium (8.4-10.2) mg/dL Total Bilirubin (0.2-1.3) mg/dL AST (14-36) U/L ALT (0-35) U/L Alkaline Phosphatase (38-126) U/L Serum Total Protein (6.3-8.2) g/dL Albumin (3.5-5.0) g/dL 06/26/23 06/26/23 06/26/23 Range/Units 04:50 04:50 06:48 WBC 5.7 (4.0-10.5) x10^3/uL RBC 3.78 L (4.1-5.4) x10^6/uL Hgb 11.2 L (12.0-16.0) g/dL Hct 33.1 L (35-47) % MCV 87.6 (78-100) fL MCH 29.6 (26-32) pg MCHC 33.8 (32-36) g/dL RDW 13.8 (11.5-14.0) % Plt Count 182 (150-450) x10^3/uL MPV 10.1 (7.5-11.0) fL Sodium 134 L (137-145) mmol/L Potassium 3.7 (3.5-5.1) mmol/L Chloride 109 H (98-107) mmol/L Carbon Dioxide 23 (22-30) mmol/L Anion Gap 6.9 (5-15) MEQ/L BUN 6 L (7-17) mg/dL Creatinine 0.42 L (0.52-1.04) mg/dL Estimated GFR 119.8 ML/MIN Glucose 192 H (74-106) mg/dL POC Glucometer 182 H (74 to 106) mg/dL Calcium 8.0 L (8.4-10.2) mg/dL Total Bilirubin 0.40 (0.2-1.3) mg/dL AST 39 H (14-36) U/L ALT 28 (0-35) U/L Alkaline Phosphatase 76 (38-126) U/L Serum Total Protein 5.9 L (6.3-8.2) g/dL Albumin 2.8 L (3.5-5.0) g/dL Micro Results-Entire Visit: Microbiology 06/23/23 12:03 Urine Culture - Final Clean Catch Midstream Escherichia Coli 06/23/23 17:10 Blood Culture - Preliminary Blood 06/23/23 16:02 Blood Culture - Preliminary Blood Accuchecks Date 06/26/23 Date 06/25/23 Date 06/25/23 Date 06/25/23 Time 06:51 Time 21:00 Discharge Exam General Appearance: no apparent distress Neurologic Exam: alert, oriented x 3, cooperative Eye Exam: PERRL Ears, Nose, Throat Exam: normal ENT inspection Neck Exam: normal inspection Respiratory Exam: normal breath sounds, lungs clear Cardiovascular Exam: regular rate/rhythm, normal heart sounds Gastrointestinal/Abdomen Exam: soft, normal bowel sounds, tenderness Pelvic Exam: deferred Rectal Exam: deferred Back Exam: normal inspection Extremity Exam: normal inspection Skin Exam: normal color Final Diagnosis/Problem List - Final Discharge Diagnosis/Problem (1) Urinary tract infection Current Visit: Yes Status: Acute Code(s): N39.0 - URINARY TRACT INFECTION, SITE NOT SPECIFIED (2) Cholelithiasis Current Visit: Yes Status: Acute (3) Elevated lipase Current Visit: Yes Status: Acute Code(s): R74.8 - ABNORMAL LEVELS OF OTHER SERUM ENZYMES (4) Hypertension Current Visit: Yes Status: Acute Code(s): I10 - ESSENTIAL (PRIMARY) HYPERTENSION (5) Hyperglycemia Current Visit: Yes Status: Acute Code(s): R73.9 - HYPERGLYCEMIA, UNSPECIFIED (6) Hyponatremia Current Visit: Yes Status: Acute Code(s): E87.1 - HYPO-OSMOLALITY AND HYPONATREMIA (7) Transaminitis Current Visit: Yes Status: Acute Code(s): R74.01 - ELEVATION OF LEVELS OF LIVER TRANSAMINASE LEVELS (8) Leukocytosis Current Visit: Yes Status: Acute Code(s): D72.829 - ELEVATED WHITE BLOOD CELL COUNT, UNSPECIFIED (9) Metabolic acidosis Current Visit: Yes Status: Acute Code(s): E87.20 - ACIDOSIS, UNSPECIFIED (10) Diabetes mellitus Current Visit: Yes Status: Acute Code(s): E11.9 - TYPE 2 DIABETES MELLITUS WITHOUT COMPLICATIONS - Discharge Disposition: Home, Self-Care Condition: Stable Prescriptions: New Cefdinir 300 mg PO BID 5 Days #10 cap Insulin Glargine [Lantus Insulin] 20 unit SQ HS 30 Days #600 unit MDD 20 Insulin Aspart [Novolog] 10 unit SQ TIDWMEALS 30 Days #900 units MDD 30 Syringe and Needle,Insulin,1Ml [Insulin Syringe] 1 each MC TID 30 Days #90 units Hydrocodone/Acetaminophen [Hydrocodone-Acetamin 5-325 mg] 1 tab PO Q4HPRN PRN 3 Days #18 tablet MDD 6 PRN Reason: Pain Continue Rivaroxaban 10 mg Tablet [Xarelto 10 mg Tablet] 10 mg PO DAILY Gabapentin [Neurontin ] 100 mg PO BID Mv,Calcium,Min/Iron/Folic/Vitk [Multi For Her Tablet] 1 tab PO DAILY Cyanocobalamin (Vitamin B-12) [Vitamin B-12] 1,000 mcg PO DAILY Cholecalciferol (Vitamin D3) [Vitamin D3] 500 mcg PO DAILY Additional Instructions: TEST YOUR BLOOD SUGAR BEFORE BREAKFAST, BEFORE LUNCH, BEFORE DINNER AND BEFORE BED GLUCOMETER, TEST STRIPS AND LANCETS CALLED INTO [facility] Follow up with: ZIGGY RAMIREZ MD [Primary Care Provider] - 07/03/23 10:30 am CARLOTA AMADOR MD [ACTIVE STAFF] - 1 Week MILAGROS FAUST [NON-STAFF PHY W/O PRIVILEGES] - 5 Days (3-5 days) LENO CHANDRA DO [ACTIVE STAFF] - (3-5 days)
[2023-06-26] MEDS ORDERED: Sterile H2O 10 ml IJ ONE (11:24)
[2023-06-26 11:54] VITALS: BP 178/94; PULSE 85; RESP 17; TEMP 97.1
[2023-06-26] MEDS: HUMALOG SQ PRN (12:18)
== END 2023-06-26 14:25 | disposition home or self-care (01) ==
LOC: ED 11:38 → MED SURG 14:03
PROVIDERS: ADMIT Internal Medicine; ATTEND Internal Medicine
DX: N39.0 Urinary tract infection, site not specified (principal); K80.20 Calculus of gallbladder without cholecystitis without obstruction; R74.8 Abnormal levels of other serum enzymes; I10 Essential (primary) hypertension; E87.1 Hypo-osmolality and hyponatremia; R74.01 Elevation of levels of liver transaminase levels; D72.829 Elevated white blood cell count, unspecified; E87.20 Acidosis, unspecified; E11.65 Type 2 diabetes mellitus with hyperglycemia; Z79.899 Other long term (current) drug therapy; Z91.148 Patient's other noncompliance with medication regimen for other reason
CPT/HCPCS: 36000; 36415; 36600; 74176; 76705; 80048; 80053; 80307; 81001; 82375; 82803; 82947; 83036; 83605; 83690; 84484; 85025; 85027; 85610; 87040; 87077; 87086; 87186; 93005; 96360; 96365; 96374; 96375; 96376; 99284; G0378; J0696; J1815; J1817; J2270; J2405; J3010; Q3014; A9270-GY

== ENCOUNTER 2023-10-07 10:13 | Day surgery (SDC) | payer OTHER ==
[2023-10-07] MEDS ORDERED: SUBLIMAZE 100 MCG/2 ML IV ONE (10:14)
[2023-10-07] MEDS ORDERED: Lactated Ringers 1,000 ML IV ONE ×2 (10:14→10:46)
[2023-10-07] MEDS ORDERED: Xylocaine 1% Vial 30 ML PF IJ ONE (10:14)
[2023-10-07] MEDS ORDERED: CEFAZOLIN 2 GM-D5W BAG** 2 GM/50 ML ML IV ONE (10:46)
[2023-10-07 10:51] VITALS: RESP 16
[2023-10-07] MEDS: Lactated Ringers 1,000 ML IV SCH (11:01)
[2023-10-07] MEDS: CEFAZOLIN 2 GM-D5W BAG** 2 GM/50 ML ML IV ONE (11:02)
[2023-10-07 11:06] LABS: Hematocrit 40.1 % (35-47); Hemoglobin 13.7 g/dL (12.0-16.0); Mean Cell Volume 85.7 fL (78-100); Mean Corpuscular Hemoglobin 29.3 pg (26-32); Mean Corpuscular Hgb Concent. 34.2 g/dL (32-36); Mean Platelet Volume 9.8 fL (7.5-11.0); Platelet Count 198 x10^3/uL (150-450); Red Blood Count 4.68 x10^6/uL (4.1-5.4); Red Cell Distribution Width 12.5 % (11.5-14.0); White Blood Count 9.2 x10^3/uL (4.0-10.5)
[2023-10-07 11:13] LABS: HCG SERUM TEST NEGATIVE (NEGATIVE)
[2023-10-07 11:19] LABS: INR 0.99 (0.8-3.0); PROTIME 10.8 SECONDS (9.4-12.5)
[2023-10-07 11:22] LABS: ALBUMIN 4.3 g/dL (3.5-5.0); ANION GAP 16.3 MEQ/L (5-15); BILIRUBIN,TOTAL 0.5 mg/dL (0.2-1.3); Calcium 9.3 mg/dL (8.4-10.2); Creatinine 1 0.81 mg/dL (0.52-1.04); EST GLOMERULAR FILTRATION RATE 88.9 ML/MIN; Potassium 4.7 mmol/L (3.5-5.1)
[2023-10-07] MEDS ORDERED: Xylocaine-Mpf 2% 5 Ml Vial ONE (13:51)
[2023-10-07] MEDS ORDERED: Versed 2 MG/2 ML Injection ONE (13:51)
[2023-10-07] MEDS ORDERED: DIPRIVAN 200 MG/20 ML IV ONE ×5 (13:51→16:20)
[2023-10-07] MEDS ORDERED: SUBLIMAZE 100 MCG/2 ML ONE (13:51)
--- NOTE | 2023-10-07 16:23 | XRAY ---
Indication: PICC line placement. Comparison: None Portable chest demonstrates right arm PICC line with tip projecting over right atrium. Lungs underinflated and clear. Heart not enlarged. Bony thorax intact.
[2023-10-07 17:38] VITALS: BP 160/89; PULSE 72; TEMP 97.8; O2SAT 98
--- NOTE | 2023-10-08 09:10 | OP ---
SURGERY DATE/TIME: 10/07/2023 2922 PREOPERATIVE DIAGNOSES: 1) Osteomyelitis. 2) Left foot pain. 3) Diabetic foot ulcer. POSTOPERATIVE DIAGNOSES: 1) Osteomyelitis. 2) Left foot pain. 3) Diabetic foot ulcer. PROCEDURE: Amputation second digit left foot. SURGEON: Bob Andrea DPM. AUTOCLAVE OPERATOR: None. ANESTHESIA: Monitored anesthesia care. ESTIMATED BLOOD LOSS: Minimal. MATERIALS: 2-0 Monocryl, 3-0 Nylon. INJECTABLES: 10 cc of a 1:1 mixture of 1% lidocaine plain and 0.5% bupivacaine plain injected in a digital block-type fashion. INDICATION FOR SURGERY: Luanne presented to my service yesterday. She is very well known to my service for previous interventions for her right lower extremity secondary to wound to her left foot. Today, she does have a wound that is somewhat chronic in nature. Most of her issues did seemingly resolve fairly quickly approximately six weeks ago. The patient presented stating a two week history of recurrence of the red hot swollen second digit with a wound underneath the toenail. As a result x-rays were taken demonstrating destructive changes to the second toe and decision was made to proceed with an amputation. The patient understands all risks, complications and benefits of surgical intervention at this time including but not limited to infection, hematoma, seroma, possibility of delayed wound healing, nonwound healing and possibility of failure of surgical intervention, possible need for further surgical intervention at a later date. No guarantees were provided as to the surgical outcome at this time. Plenty of time was allowed for the patient to ask questions which were answered to her apparent satisfaction. It is at this time we decided to proceed. DESCRIPTION OF PROCEDURE AND FINDINGS: The patient is brought into the OR and placed on the OR table in the supine position. At this time, monitored anesthesia care was administered until the patient was adequately sedated. At this time, the left foot was prepped and draped in the typical sterile fashion and lowered onto the surgical field. At this time, a linear incision was made in a fish mouth-type approach from the base of the second digit to the base of the medial aspect of the third. From that standpoint, this was carried down to bone making sure to make perpendicular cuts with a 10 blade. Disarticulation of the second digit was accomplished utilizing a pair of dissection scissors. Copious amounts of sterile saline were utilized to flush the surgical sites. The toe was handed off the field for pathologic assessment. At this time, 2-0 Monocryl was utilized to coapt the subcutaneous skin edges in a simple interrupted buried-type fashion and following this a 3-0 Nylon was utilized in a horizontal mattress and simple interrupted-type fashion to coapt the skin edges in a slightly everted fashion. Following this, a dressing consisting of Betadine, Adaptic, 4x4, Kerlix and JOSLYN was applied to the patient's left foot. After having a PICC line placed by the anesthesia team, returned to the postoperative anesthesia care unit with vital signs stable and vascular status intact. The patient handled the anesthesia as well as the procedure without significant complication. Postoperative orders as indicated in the patient's discharge chart.
--- NOTE | 2023-10-08 13:16 | ANESPROCNO ---
Anesthesia Procedure Note - Anesthesia Procedure Note Procedure Date:: 10/07/23 (procedure note for PICC placement on 10/07/23) Procedure Time:: 14:30 Anesthesia Procedure Note: Consulted by Dr. Bob Andrea for placement of a PICC. Patient is in need of daily IV antibiotics. Discussed with patient the risks and benefits of PICC, and an informed consent was obtained. Benefit allows easy intravenous access for weeks of IV antibiotics if necessary. Risks of procedure include, but are not limited to: bleeding, hematoma formation (especially with pt's current use of blood thinner), injury to blood vessels and/or nerves, infection, clot formation causing a thrombus, and procedure failure. Patient verbalizes understanding and wishes to proceed. Patient desires for PICC to be placed in the operating room and after her surgical procedure so she is still sedated. Procedure: Patient's upper extremities were scanned using ultrasound to determine best approach for the PICC. The patient's right arm, basilic vein was chosen for access. Arm sterile prepped and draped using CHG2%IPA70% X 2 and allowed a full 3 minute dry time. Pt's RUE was draped out using kit full body extremity drape. A sterile ultrasound probe cover and sterile US gel was utilized for the procedure. The skin and subcutaneous tissue above the taget vessel was localized with 5cc of 1% lidocaine. Using the access needle, the target vessel was accessed and positive venous blood return was noted. A guide wire was then threaded through the access needle and the needle was removed. Intravenous placement of the guide wire was confirmed with ultrasound in both the short and long vessel axis. The introducer was then advanced over the wire into the target vessel, and the wire was removed. After both lumens of the PICC were flushed with sterile saline, the PICC was placed into the introducer to a final depth of 43 cm. Initially some resistance was met at a depth of approximately 20 cm, but after repositioning the patients head and right arm, the catheter was inserted easily. The introdu cer was then broken away in the usual fashion. Both lumens with positive, brisk venous blood return and flushed easily with sterile saline. A stat portable chest X-ray was then ordered. Final tip position at 43 cm was residing over the right atrium. The PICC was secured in place with 3-0 silk suture and a StatLock devise. An Algidex biopatch was placed and the insertion site was covered with a sterile PICC line dressing. The patient tolerated the procedure well and there were no complications. The Arrow PICC kit with a 5.5 FR double lumen, power injectable catheter was used for the procedure. Measurements: distance from right antecubital fossa to insertion site: 9 cm. Distance measured from insertion site to sternal notch and 3rd intercoastal space, right sternal border: 44 cm. Right upper extremity circumfrence at insertion site: 34 cm. Amount of catheter remaining outside skin: 7 cm.
== END 2023-10-07 18:01 | disposition home or self-care (01) ==
LOC: SDC 10:13
PROVIDERS: ATTEND Podiatrist Foot & Ankle Surgery
DX: M86.9 Osteomyelitis, unspecified (principal); E11.621 Type 2 diabetes mellitus with foot ulcer; M79.672 Pain in left foot; Z79.01 Long term (current) use of anticoagulants; Z79.899 Other long term (current) drug therapy
CPT/HCPCS: 28820; 36415; 36569; 71045; 76937; 76942; 80053; 84703; 85027; 85610; 85730; 87070; J0690; J1642; J2001; J2250; J2704; J3010

== ENCOUNTER 2025-02-06 20:58 | Emergency (ER) | payer SELFPAY ==
[2025-02-06 21:13] VITALS: TEMP 97.6
[2025-02-06] MEDS ORDERED: NORCO 5/325 MG ONE (21:27)
--- NOTE | 2025-02-06 21:27 | ERPHSYRPT ---
- History of Present Illness Time Seen by Provider: 02/06/25 21:05 Source: patient, family Exam Limitations: no limitations Patient Subjective Stated Complaint: c/o foot injury. patient is a diabetic and Triage Nursing Assessment: patient brought to ED with c/o bilat. foot injury. patient was tubing yesterday and stated she dragged her feet on the bottom of the ribeiro yesterday. patient has swelling, bruising, and tenderness on her right foot and the left 4th toe is buised and swollen. patient is a diabetic and has peripheral neuropathy. patient rates pain 6/10, but states she has numbess in her right foot. pulses heard with doppler, hypertensive, brought in by wheelchair, patient doesn't appear to be in any distress at this time. Physician History: This is a insulin-dependent diabetic 49-year-old white female patient arrives by private vehicle with complaints of right foot swelling, pain and ecchymosis as well as pain and ecchymosis swelling left third toe. Patient was tubing in a ribeiro and she was wearing crocs. Occasionally she would fall off the tube and her foot would drag on the bottom/floor of the leg/wrap at the areas. She then lost the crocs and was barefooted. Patient has peripheral neuropathy. She states that the pain she has in her right foot is 6.5 out of 10. Patient does see Dr. Rojas as her client coordinator. 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 Patient is on Xarelto Method of Injury: other Occurred: yesterday Quality: constant, aching Severity of Pain-Max: moderate Severity of Pain-Current: moderate Lower Extremities Pain: foot: right, 3rd toe: left Modifying Factors: Improves With: movement Associated Symptoms: other (Hurts to bear weight) Allergies/Adverse Reactions: vancomycin Adverse Reaction (Verified 02/06/25 21:03) Home Medications: Rivaroxaban 10 mg Tablet [Xarelto 10 mg Tablet] 10 mg PO DAILY 11/21/21 [History] Cyanocobalamin (Vitamin B-12) [Vitamin B-12] 1 cap PO DAILY 10/06/23 [History] Duloxetine HCl 30 mg [Cymbalta 30 MG Capsule] 30 mg PO DAILY 10/06/23 [History] Empagliflozin [Jardiance] 10 mg PO DAILY 10/06/23 [History] Insulin Aspart [Novolog] 8 units SQ TIDWMEALS 10/06/23 [History] Simvastatin 10 mg [Zocor 10MG] 10 mg PO DAILY 10/06/23 [History] Insulin Glargine [Lantus Insulin] 15 unit SQ BID MDD 20 10/07/23 [History] Ascorbic Acid/Ascorbate Sodium [Vitamin C 500 mg Tablet Chew] 500 mg PO DAILY 02/06/25 [History] Hx Tetanus, Diphtheria Vaccination/Date Given: No Hx Influenza Vaccination/Date Given: No Hx Pneumococcal Vaccination/Date Given: No Travel Risk - International Travel Have you traveled outside of the country in past 3 weeks: No - Emerging Infectious Disease Are you exhibiting symptoms associated with any current EIDs: No - Review of Systems Constitutional: No Symptoms Eyes: No Symptoms Ears, Nose, & Throat: No Symptoms Respiratory: No Symptoms Cardiac: No Symptoms Abdominal/Gastrointestinal: No Symptoms Genitourinary Symptoms: No Symptoms Musculoskeletal: Injury (Right foot and left third toe) Skin: No Symptoms Neurological: No Symptoms Psychological: No Symptoms Endocrine: No Symptoms Hematologic/Lymphatic: No Symptoms Immunological/Allergic: No Symptoms All Other Systems: Reviewed and Negative - Past Medical History Pertinent Past Medical History: Yes Neurological History: Peripheral Neuropathy, TIA ENT History: No Pertinent History Cardiac History: High Cholesterol Respiratory History: No Pertinent History Endocrine Medical History: Diabetes Type II Musculoskeletal History: No Pertinent History GI Medical History: No Pertinent History History: No Pertinent History Psycho-Social History: No Pertinent History Female Reproductive Disorders: No Pertinent History Other Medical History: PSH: APPENDECOMTY, 1ST AND 2ND TOE REMOVED L FOOT, R ACHILLES REPAIR, ANTERIOR TIB TENDON TRANSPOSITION - Past Surgical History Past Surgical History: Yes Neuro Surgical History: No Pertinent History Cardiac: No Pertinent History Respiratory: No Pertinent History Gastrointestinal: Appendectomy Genitourinary: No Pertinent History Musculoskeletal: Amputation, Orthopedic Surgery Female Surgical History: No Pertinent History Other Surgical History: left great toe amputated AND SECOND TOE ON LEFT. ACHILIES SURGERY ON RIGHT FOOT - Female History Hx Last Menstrual Period: March 2016 Hx Now: No - Social History Smoking Status: Never smoker Exposure to second hand smoke: No Drug Use: none - Social Determinants of Health Will the patient participate in the screening: Yes Do you worry about a steady place to live?: No Do you have any problems with any of the following?: No known problems In the past 12 months,have you had to go without utilities?: No Transportation Issues: No Has anyone in your support network made you feel unsafe?: No Have you or anyone in your house had to go w/o enough food: No - Nursing Vital Signs Nursing Vital Signs: Initial Vital Signs Temperature 97.6 F 02/06/25 21:03 Pulse Rate 103 H 02/06/25 21:03 Respiratory Rate 18 02/06/25 21:03 Blood Pressure 200/92 02/06/25 21:03 O2 Sat by Pulse Oximetry 98 02/06/25 21:03 Pain Scale Pain Intensity 7 - Physical Exam General Appearance: no apparent distress, alert, anxiety Eyes, Ears, Nose, Throat Exam: normal ENT inspection, moist mucous membranes Neck Exam: normal inspection, non-tender, supple, full range of motion Cardiovascular/Respiratory Exam: chest non-tender, no respiratory distress Gastrointestinal/Abdominal Exam: non-tender Back Exam: normal inspection, normal range of motion, No CVA tenderness, No vertebral tenderness Hips Exam: bilateral: non-tender, normal inspection, normal range of motion, no evidence of injury Legs Exam: bilateral leg: non-tender, normal inspection, normal range of motion, no evidence of injury Knees Exam: bilateral knee: non-tender, normal inspection, normal range of motion, no evidence of injury Ankle Exam: bilateral ankle: non-tender, normal inspection, normal range of motion, no evidence of injury Foot Exam: left foot: ecchymosis (Left third toe), soft tissue tenderness (Left third toe), swelling (Left third toe), bilateral foot: other (Strongly dopplerable bilateral pedal pulses) Neuro/Tendon Exam: normal sensation, normal motor functions, normal tendon functions, responds to pain, no evidence tendon injury Mental Status Exam: alert, oriented x 3, cooperative Skin Exam: ecchymosis (See above foot/extremity section) SpO2 Interpretation: normal SpO2: 98 O2 Delivery: Room Air - Course Nursing assessment & vital signs reviewed: Yes Ordered Tests: Active Orders 24 hr Category Date Time Status Crutches STAT Care 02/06/25 22:15 Active IV Insertion STAT Care 02/06/25 21:23 Active FOOT (MINIMUM 3 VIEWS) Stat Exams 02/06/25 21:24 Taken FOOT (MINIMUM 3 VIEWS) Stat Exams 02/06/25 21:24 Taken BLOOD CULTURE Stat Lab 02/06/25 21:23 Received CBC W DIFF Stat Lab 02/06/25 21:40 Completed CMP Stat Lab 02/06/25 21:40 Completed Lactic Acid Stat Lab 02/06/25 22:20 Completed PROCALCITONIN Stat Lab 02/06/25 21:40 Completed Medication Summary Discontinued Medications Generic Name Dose Route Start Last Admin Trade Name Mari PRN Reason Stop Dose Admin Hydrocodone Bitart/Acetaminophen 1 tab 02/06/25 21:24 02/06/25 21:28 Hydrocodone/Apap 5/325 1 Tab Tablet PO 02/06/25 21:25 1 tab STAT ONE Administration Hydrocodone Bitart/Acetaminophen Confirm 02/06/25 21:27 Hydrocodone/Apap 5/325 1 Tab Tablet Administered 02/06/25 21:28 Dose 1 tab .ROUTE .STK-MED ONE Ceftriaxone Sodium 1 gm in 100 mls @ 200 mls/hr 02/06/25 21:25 02/06/25 22:06 Rocephin 1 Gm / 100 Ml Nacl IV 02/06/25 21:54 Infused STAT ONE Infusion Ceftriaxone Sodium Confirm 02/06/25 21:34 Rocephin 1 Gm / 100 Ml Nacl Administered 02/06/25 21:35 Dose 1 gm in 100 mls @ ud IV .STK-MED ONE Levofloxacin 500 mg 02/06/25 21:25 02/06/25 21:35 Levofloxacin 500 Mg Tablet PO 02/06/25 21:26 500 mg STAT ONE Administration Levofloxacin Confirm 02/06/25 21:34 Levofloxacin 500 Mg Tablet Administered 02/06/25 21:35 Dose 500 mg .ROUTE .STK-MED ONE Lab/Rad Data: Laboratory Result Diagrams 02/06/25 21:40 02/06/25 21:40 Laboratory Results 02/06/25 02/06/25 02/06/25 Range/Units 22:20 21:40 21:40 WBC (3.98-10.04) x10^3/uL RBC (3.93-5.22) x10^6/uL Hgb (11.2-15.7) g/dL Hct (34.1-44.9) % MCV (79.4-94.8) fL MCH (25.6-32.2) pg MCHC (32.2-35.5) g/dL RDW (11.7-14.4) % Plt Count (182-369) x10^3/uL MPV (9.4-12.3) fL Gran % (34.0-71.1) % Immature Gran % (Auto) (0.001-0.429) % Nucleat RBC Rel Count (0.00-0.2) % Eos # (Auto) (0.04-0.36) x10^3/uL Immature Gran # (Auto) (0.001-0.031) x10^3u/L Absolute Lymphs (auto) (1.18-3.74) x10^3/uL Absolute Monos (auto) (0.24-0.86) x10^3/uL Absolute Nucleated RBC (0.00-0.012) x10^3u/L Lymphocytes % (19.3-51.7) % Monocytes % (4.7-12.5) % Eosinophils % (0.7-5.8) % Basophils % (0.1-1.2) % Absolute Granulocytes (1.56-6.13) x10^3/uL Basophils # (0.01-0.08) x10^3/uL Sodium 130 L (135-145) mmol/L Potassium 4.7 (3.5-5.1) mmol/L Chloride 97 L (98-107) mmol/L Carbon Dioxide 25 (22-30) mmol/L Anion Gap 12.3 (5-15) MEQ/L BUN 37 H (7-17) mg/dL Creatinine 1.08 H (0.52-1.04) mg/dL Estimated GFR 62.2 ML/MIN Glucose 591 H* (74-106) mg/dL Lactic Acid 1.6 (0.4-2.0) Calcium 8.9 (8.4-10.2) mg/dL Total Bilirubin 1.00 (0.2-1.3) mg/dL AST 51 H (14-36) U/L ALT 37 H (0-35) U/L Alkaline Phosphatase 160 H (38-126) U/L Serum Total Protein 7.5 (6.3-8.2) g/dL Albumin 4.1 (3.5-5.0) g/dL Procalcitonin 0.283 H (0.030-0.080) ng/mL 02/06/25 Range/Units 21:40 WBC 9.5 (3.98-10.04) x10^3/uL RBC 3.78 L (3.93-5.22) x10^6/uL Hgb 11.6 (11.2-15.7) g/dL Hct 33.4 L (34.1-44.9) % MCV 88.4 (79.4-94.8) fL MCH 30.7 (25.6-32.2) pg MCHC 34.7 (32.2-35.5) g/dL RDW 13.4 (11.7-14.4) % Plt Count 188 (182-369) x10^3/uL MPV 11.1 (9.4-12.3) fL Gran % 59.2 (34.0-71.1) % Immature Gran % (Auto) 0.4 (0.001-0.429) % Nucleat RBC Rel Count 0.0 (0.00-0.2) % Eos # (Auto) 0.21 (0.04-0.36) x10^3/uL Immature Gran # (Auto) 0.04 H (0.001-0.031) x10^3u/L Absolute Lymphs (auto) 2.63 (1.18-3.74) x10^3/uL Absolute Monos (auto) 0.93 H (0.24-0.86) x10^3/uL Absolute Nucleated RBC 0.00 (0.00-0.012) x10^3u/L Lymphocytes % 27.8 (19.3-51.7) % Monocytes % 9.8 (4.7-12.5) % Eosinophils % 2.2 (0.7-5.8) % Basophils % 0.6 (0.1-1.2) % Absolute Granulocytes 5.60 (1.56-6.13) x10^3/uL Basophils # 0.06 (0.01-0.08) x10^3/uL Sodium (135-145) mmol/L Potassium (3.5-5.1) mmol/L Chloride (98-107) mmol/L Carbon Dioxide (22-30) mmol/L Anion Gap (5-15) MEQ/L BUN (7-17) mg/dL Creatinine (0.52-1.04) mg/dL Estimated GFR ML/MIN Glucose (74-106) mg/dL Lactic Acid (0.4-2.0) Calcium (8.4-10.2) mg/dL Total Bilirubin (0.2-1.3) mg/dL AST (14-36) U/L ALT (0-35) U/L Alkaline Phosphatase (38-126) U/L Serum Total Protein (6.3-8.2) g/dL Albumin (3.5-5.0) g/dL Procalcitonin (0.030-0.080) ng/mL - Progress Progress: improved, pain not gone completely, re-examined Progress Note: 02/06/25 21:30 My medical decision making and the assignment of moderate complexity of this patient's medical issue today is based on review of the patient's past medical history, review the patient's medication list, review patient drug allergy list, history present illness and physical findings on examination. The workup in this patient includes placement of intravenous line, Doppler bilateral pedal pulses, CBC, CMP, lactic acid level, blood cultures, prolactin level, and of intravenous Rocephin and providing Levaquin 500 mg orally. We will also order x-ray of both feet. Differential diagnosis includes but is not limited to cellulitis, ecchymosis secondary to injury and patient toe, fracture/dislocation right foot, fracture/dislocation left third toe 02/06/25 22:16 I interpreted the preliminary report of the patient's following x-rays: Right foot x-ray shows nondisplaced fracture proximal metatarsal, distal metatarsal fractures 2, 3, 4, 5 Left foot x-ray shows chronic changes and no acute fracture or dislocation. 02/06/25 22:32 I interpreted the patient's laboratory data results. Based on the laboratory data results, the patient has a normal white blood cell count with normal differential. The lactic acid is normal, the anion gap is normal, CO2 level is normal. The procalcitonin is elevated and we will place her on home antibiotics. The sodium is 130 and the glucose is 591. The corrected sodium, depending on which formula is used corrects to 138-142. Patient's renal function is normal Counseled pt/family regarding: lab results, diagnosis, rad results Medical Desision Making - Independent Historian Additional History obtained from: Family - Diagnostic Testing Diagnostic test were ordered, analyzed, and reviewed by me: Yes Radiological Interpretation: Interpreted by me - Risk of complications The pt has a mod risk of morbidity or mortality based on: Need for prescription drug management - Departure Departure Disposition: Home Clinical Impression: Metatarsal fracture, Hyperglycemia Condition: Stable Critical Care Time: No Referrals: ZIGGY RAMIREZ MD [Primary Care Provider, [facility]] - Follow up/PCP as directed HOOD SPENCER DPM [ACTIVE STAFF, PODIATRY] - Follow up/PCP as directed Additional Instructions: Nonbearing right foot. Keep your right foot elevated above level of your heart tonight. Follow-up tomorrow, 02/07/2025, with Dr. Rojas in the orthopedics/podiatry clinic. Call his office at 8:30 AM. Take your antibiotics and other medications as prescribed. Prescriptions: Levofloxacin [Levaquin 500 MG Tablet] 500 mg PO DAILY #7 tablet
[2025-02-06] MEDS: NORCO 5/325 MG PO ONE (21:28)
[2025-02-06] MEDS ORDERED: Levofloxacin 500 MG Tablet ONE (21:34)
[2025-02-06] MEDS ORDERED: ROCEPHIN 1 GM / 100 ML NaCl 1 GM/100 ML IVPB IV ONE (21:34)
[2025-02-06] MEDS: Levofloxacin 500 MG Tablet PO ONE (21:35)
[2025-02-06] MEDS: ROCEPHIN 1 GM / 100 ML NaCl 1 GM/100 ML IVPB IV ONE (21:36)
[2025-02-06 21:52] LABS: BASOPHIL % 0.6 % (0.1-1.2); Basophil (Absolute #) 0.06 x10^3/uL (0.01-0.08); Eosinophil (Absolute #) 0.21 x10^3/uL (0.04-0.36); Hematocrit 33.4 % (34.1-44.9); Hemoglobin 11.6 g/dL (11.2-15.7); IMMATURE GRAN # 0.04 x10^3u/L (0.001-0.031); IMMATURE GRAN % 0.4 % (0.001-0.429); Lymphocyte (Absolute #) 2.63 x10^3/uL (1.18-3.74); Mean Corpuscular Hemoglobin 30.7 pg (25.6-32.2); Mean Corpuscular Hgb Concent. 34.7 g/dL (32.2-35.5); Monocyte (Absolute #) 0.93 x10^3/uL (0.24-0.86); NUCLEATED RBC # 0.00 x10^3u/L (0.00-0.012); NUCLEATED RBC % 0.0 % (0.00-0.2); Platelet Count 188 x10^3/uL (182-369); Red Blood Count 3.78 x10^6/uL (3.93-5.22); White Blood Count 9.5 x10^3/uL (3.98-10.04)
[2025-02-06 21:55] LABS: Calcium 8.9 mg/dL (8.4-10.2); Carbon Dioxide 25.0 mmol/L (22-30); Creatinine 1 1.08 mg/dL (0.52-1.04); EST GLOMERULAR FILTRATION RATE 62.2 ML/MIN; Potassium 4.7 mmol/L (3.5-5.1); SGOT/AST 51.0 U/L (14-36); SGPT/ALT 37.0 U/L (0-35); Total Protein 7.5 g/dL (6.3-8.2)
[2025-02-06 22:13] LABS: Glucose 591.0 mg/dL (74-106)
[2025-02-06] MEDS ORDERED: HUMULIN R ONE (23:02)
[2025-02-06] MEDS: HUMULIN R IV ONE (23:03)
[2025-02-06 23:22] VITALS: PULSE 88
[2025-02-06] MEDS: PERCOCET TABLET 5/325MG PO STA (23:24)
[2025-02-06] MEDS ORDERED: PERCOCET TABLET 5/325MG ONE (23:24)
[2025-02-06 23:52] VITALS: BP 117/72; RESP 18; O2SAT 98
--- NOTE | 2025-02-07 08:45 | XRAY ---
Indication: Foot injury. Comparison: January 01, 2022 3 nonweightbearing views right foot demonstrates new minimally displaced subcapital fractures distal 2nd-5th metatarsals with soft tissue swelling. New nondisplaced comminuted fracture base 1st metatarsal with healing callus formation. Stable chronic findings including osteopenia, tiny posterior heel spur, cuboid orthopedic button, and diffuse scattered vascular calcifications.
--- NOTE | 2025-02-07 08:49 | XRAY ---
Indication: 3rd toe injury. Comparison: October 06, 2023 3 nonweightbearing views left foot now demonstrates 3rd/4th hammertoe deformities with moderate 3rd/4th MTP degenerative degenerative changes. Query new nondisplaced fractures base 3rd/4th proximal phalanges with soft tissue swelling. New 2nd toe amputation. Stable chronic findings including osteopenia, amputation 1st toe, and diffuse scattered vascular calcifications.
== END 2025-02-06 23:52 | disposition home or self-care (01) ==
LOC: ED 20:58
DX: S92.314A Nondisplaced fracture of first metatarsal bone, right foot, initial encounter for closed fracture (principal); S92.321A Displaced fracture of second metatarsal bone, right foot, initial encounter for closed fracture; S92.331A Displaced fracture of third metatarsal bone, right foot, initial encounter for closed fracture; S92.341A Displaced fracture of fourth metatarsal bone, right foot, initial encounter for closed fracture; S92.351A Displaced fracture of fifth metatarsal bone, right foot, initial encounter for closed fracture; W22.8XXA Striking against or struck by other objects, initial encounter; Y93.16 Activity, rowing, canoeing, kayaking, rafting and tubing; Y92.838 Other recreation area as the place of occurrence of the external cause; E11.65 Type 2 diabetes mellitus with hyperglycemia; E11.42 Type 2 diabetes mellitus with diabetic polyneuropathy; Z79.01 Long term (current) use of anticoagulants; Z79.4 Long term (current) use of insulin; Z79.84 Long term (current) use of oral hypoglycemic drugs; Z79.899 Other long term (current) drug therapy